=== PATIENT | male | born 1980 | race Caucasian/White ===

== ENCOUNTER 2017-01-23 10:45 | Observation (INO) | payer BC ==
[2017-01-23 12:14] LABS: Hematocrit 46 % (42-52); Hemoglobin 15.4 g/dl (14.0-18.0); Mean Corpuscular HGB Conc 34 g/dl (31-36); Mean Corpuscular Hemoglobin 31 pg (27-31); Mean Corpuscular Volume 90 fL (80-94); Mean Platelet Volume 7 um3 (7.4-10.4); Red Blood Count 5.04 10^6/ul (4.0-5.4); Red Cell Distribution Width 14 % (10.5-15); White Blood Count 8.3 10^3/ul (3.5-10.8)
[2017-01-23 12:26] LABS: ALT 20 U/L (7-52); AST 16 U/L (13-39); Albumin 4.2 g/dL (3.2-5.2); Alkaline Phosphatase 80 U/L (34-104); Anion Gap 6 mmol/L (2-11); BUN/Creatinine Ratio 15.5 (8-20); Blood Urea Nitrogen 15 mg/dL (6-24); CO2 Carbon Dioxide 30 mmol/L (22-32); Calcium 9.5 mg/dL (8.6-10.3); Chloride 98 mmol/L (101-111); EGFR African American 112.6 (>60); EGFR Non-African American 87.6 (>60); Glucose 103 mg/dL (70-100); Lipase < 10 U/L (11.0-82.0); Potassium 3.8 mmol/L (3.5-5.0); Sodium 134 mmol/L (133-145); Total Protein 7.2 g/dL (6.4-8.9)
[2017-01-23 12:27] LABS: Troponin I 0.01 ng/mL (<0.04)
[2017-01-23] MEDS ORDERED: Metoclopramide IV* 5 MG/ML 2 ML VIAL IV SLOW PU ONE (13:16)
[2017-01-23] MEDS ORDERED: NS 0.9% 1000 ML* 1,000 ML IV ONE (13:16)
[2017-01-23] MEDS ORDERED: Aspirin TAB* 325 MG PO ONE (13:16)
[2017-01-23 13:43] LABS: C Reactive Protein 56.61 mg/L (< 5.00)
[2017-01-23] MEDS ORDERED: Ondansetron INJ* 2 MG/ML VIAL IV PRN (13:45)
[2017-01-23] MEDS ORDERED: Omeprazole CAP* 20 MG PO ONE (13:52)
--- NOTE | 2017-01-23 14:33 | RAD ---
Indication: Chest pain. 2 views of the chest demonstrate no mediastinal shift. Heart is of normal size and configuration. Lung sheridan demonstrate no pleural fluid, pneumonia or pneumothorax. When compared to previous exam of March 26, 2016 no significant change is noted. IMPRESSION: No active cardiopulmonary disease is noted.
[2017-01-23 14:42] LABS: Erythrocyte Sed Rate 15 mm/Hr (0-14)
[2017-01-23] MEDS: NS 0.9% 1000 ML* 1,000 ML IV SCH (16:09)
[2017-01-23] MEDS: Indomethacin CAP* 50 MG PO SCH ×2 (17:11→20:20)
[2017-01-23] MEDS ORDERED: Acetaminophen TAB* 325 MG PO PRN (17:25)
--- NOTE | 2017-01-23 17:54 | ECHO ---
Patient: GILBERTO TAYLOR [facility] Rec#: [id number] : 1980 Date: 01/23/2017 Age: 36y Height: 165.1 cm / 65.0 in Weight: 74.8 kg / 164.9 lbs Sex: M BSA: 1.8 Room#: 439 Admit Date#: 01/23/2017 Type: Inpatient Referring: Curtis Cedillo Reading: Khari Shahid MD Dryer Feeder: Mary Marshall RN RDCS CC: Simone Isidro MD Transthoracic Echocardiogram Indication: Chest pain, abnormal EKG, pericarditis BP: 118/71 HR: 83 Rhythm: NSR Findings History: Former smoker Technical Comments: The study quality is fair. The study is technically limited due to the patient's smoking history. Completed at 1725. Left Ventricle: The left ventricular chamber size is normal. Global left ventricular wall motion and contractility are within normal limits. There is normal left ventricular systolic function. The estimated ejection fraction is 55-60%. closer to 55%. There is no consistent Doppler evidence of clinically significant diastolic dysfunction. Left Atrium: The left atrial chamber size is normal. Right Ventricle: The right ventricular cavity size is normal. The right ventricular global systolic function is low normal. Right Atrium: The right atrial cavity size is normal. Aortic Valve: The aortic valve is trileaflet. The aortic valve leaflets are mildly thickened. There is a trace of aortic regurgitation. There is no evidence of aortic stenosis. Mitral Valve: The mitral valve leaflets are mildly thickened. There is a trace of mitral regurgitation. There is no evidence of mitral stenosis. Tricuspid Valve: The tricuspid valve leaflets are normal. There is trace tricuspid regurgitation. Unable to estimate the right ventricular systolic pressure. Pulmonic Valve: The pulmonic valve appears normal. There is trace to mild pulmonic regurgitation. There is no pulmonic stenosis. Pericardium: There is no significant pericardial effusion. Aorta: There is no dilatation of the ascending aorta. There is no dilatation of the aortic arch. The aortic root is normal in size. Pulmonary Artery: The main pulmonary artery appears normal. Venous: The inferior vena cava appears normal in size. There is a greater than 50% respiratory change in the inferior vena cava dimension. Summary: There was not any prior study for comparison. Conclusions The study quality is fair. There is normal left ventricular systolic function. The estimated ejection fraction is 55-60%. closer to 55%. There is a trace of aortic regurgitation. There is a trace of mitral regurgitation. There is trace tricuspid regurgitation. There is no significant pericardial effusion. Measurements Name Value Normal Range RVDdMajor (2D) 3 cm (2.2 - 4.4) RAd ISD 4CH 4.1 cm (3.4 - 4.9) RA (A4C)W 3.1 cm (2.9 - 4.6) IVSd (2D) 0.9 cm (0.6 - 1) LVPWd (2D) 0.9 cm (0.6 - 1) LVIDd (2D) 4.1 cm (3.6 - 5.4) LVIDs (2D) 2.7 cm - LV FS (2D) 34 % (25 - 45) Aortic Annulus 2 cm (1.4 - 2.6) Ao root diameter (2D) 2.8 cm (2.1 - 3.5) Ascending Ao 2.4 cm (2.1 - 3.4) Aortic arch 2.1 cm (1.8 - 3.4) LA dimension (AP) 2D 2.8 cm (2.3 - 3.8) LAd ISD 4CH 4.5 cm (2.9 - 5.3) LA ISD 4CH W 3 cm (2.5 - 4.5) Name Value Normal Range LA ESV SP 4CH (A/L) 25 ml - LA ESV SP 2CH (A/L) 41 ml - LA ESV BP (A/L) 33 ml - LA ESV BP (A/L) index 18.1 ml/m2 - LA ESV SP 4CH (MOD) 23 ml - LA ESV SP 2CH (MOD) 40 ml - Name Value Normal Range MV E-wave Vmax 0.94 m/sec - MV deceleration time 238 msec - MV A-wave Vmax 0.54 m/sec - MV E:A ratio 1.8 ratio - LV septal e' Vmax 0.12 m/sec - LV lateral e' Vmax 0.15 m/sec - LV E:e' septal ratio 7.8 ratio - LV E:e' lateral ratio 6.3 ratio - Name Value Normal Range AV Vmax 1.3 m/sec - AV VTI 25.8 cm - AV peak gradient 7 mmHg - AV mean gradient 4 mmHg - LVOT Vmax 1 m/sec - LVOT VTI 17.7 cm - RUBI Vmax 1.3 m/sec - Name Value Normal Range IVC diameter 1.3 cm - Name Value Normal Range PV Vmax 0.84 m/sec -
--- NOTE | 2017-01-23 17:57 | HP ---
ADMISSION HISTORY AND PHYSICAL: DATE OF ADMISSION: 01/23/17 PRIMARY CARE PROVIDER: Simone Isidro MD. ADMITTING PROVIDER: GRAYSON Kc SUPERVISING PHYSICIAN: Hal Collier MD.* (DICTATED BY GRAYSON KC) CHIEF COMPLAINT: Chest pain, nausea, vomiting, and diarrhea. HISTORY OF PRESENT ILLNESS: This is a 36-year-old gentleman with mild intermittent asthma as well as irritable bowel syndrome who presented to the emergency department with a 2-day history of significant nausea, vomiting and diarrhea. His daughter had similar symptoms just a couple of days ago and her symptoms have since resolved. He is having multiple bowel movements daily. He denies any bloody stools or black or tarry appearing stools. He is vomiting a couple of times a day. He is able to tolerate some liquid intake, but nothing really solid in the last couple of days. Again, he denies hematemesis or coffee -ground emesis. The patient had an acute onset of chest pain that started this morning while at rest. He states that it was midsternal and radiated through to his back. He rated the pain as severe and was exacerbated with movements. He was unable to find a position that was comfortable. Pain was exacerbated with deep inspiration, but denied associated shortness of breath. The patient has no history of similar symptoms. PAST MEDICAL HISTORY: 1. Mild intermittent asthma. 2. Irritable bowel syndrome. 3. Rotator cuff tear, pending surgical repair. PAST SURGICAL HISTORY: 1. Appendectomy. 2. Rotator cuff repair. 3. Carpal tunnel release. HOME MEDICATIONS: 1. Albuterol inhaler as needed for shortness of breath. 2. Hydrocodone as needed for shoulder pain. SOCIAL HISTORY: The patient lives at home with his and 2 children. 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 He smokes 1 pack of cigarettes daily with approximately a [id number] smoking history. REVIEW OF SYSTEMS: As listed above in HPI. PHYSICAL EXAMINATION GENERAL: The patient is a mildly uncomfortable young male accompanied by his and [id number]. VITAL SIGNS: Initial vitals, temperature 99.8 degrees Fahrenheit, pulse of 101 beats per minute, respiratory rate 18 per minute, oxygen saturation 96% on room air and blood pressure of 118/71 mmHg. HEENT: Head is normocephalic, atraumatic. Mucous membranes are mildly dry. RESPIRATORY: Lungs are clear to auscultation without wheezes, crackles, or rhonchi. CARDIOVASCULAR: Rate is mildly tachycardic, but regular. No murmurs, rubs, or gallops. ABDOMEN: Bowel sounds are present. He has diffuse tenderness to palpation, but abdomen is soft. EXTREMITIES: No lower extremity edema appreciated. Limited. SKIN: Shows no concerning rashes or lesions. PSYCH: The patient is alert and appropriately oriented. LABORATORY DATA: CBC shows a white blood cell count of 8300, hemoglobin 15.4 g/ dL, and platelet count 247,000. Comprehensive metabolic panel is largely unremarkable. Sodium of 134 mmol/L, potassium 3.8, serum bicarb of 30, BUN of 15, creatinine of 0.97. Random glucose of 103 mg/dL. Lactic acid normal at 0.9. Total bilirubin mildly elevated at 1.3, AST and ALT normal at 16 and 20 respectively, normal alk phos at 80. Initial troponin negative at 0.01. CRP is moderately elevated at 56. Lipase is negative at less than 10. IMAGING: EKG shows a sinus rhythm without ischemic changes. Chest x-ray is pending. ASSESSMENT AND PLAN: 1. This is a 36-year-old gentleman with a history of mild intermittent asthma who presents with complaints of chest pain, nausea, vomiting, and diarrhea. He appears to have a viral gastroenteritis and likely pericarditis. He is being admitted as observation status. 2. Acute pericarditis - the patient has diffuse ST elevations appreciated on EKG associated with chest pain with a recent viral illness. We will initiate NSAID therapy with indomethacin. Unsure if he will be able to tolerate NSAIDs as he is still having nausea, vomiting, and diarrhea from his gastroenteritis. We will trial this orally and otherwise, we can give IV Solu-Medrol. Echocardiogram has been ordered. Initial troponin negative. Echocardiogram will evaluate for large pericardial effusion. No clinical signs of tamponade. 3. Viral gastroenteritis - initiate supportive care with IV fluids and antiemetics. We will also start a PPI along with his NSAIDs. 4. Mild intermittent asthma without evidence of acute exacerbation. 5. Code status. The patient is full code. 6. Healthcare proxy is the patient's . 7. DVT prophylaxis. The patient is low risk and placed sequential compression devices for prophylaxis. DISPOSITION: The patient is being admitted to observation status with continuous telemetry monitoring for acute pericarditis. I anticipate likely discharge tomorrow. GRAYSON KC CC: Simone Isidro MD * [id number]/[facility] #: [id number] MTDPedro Pablo
[2017-01-24] MEDS: NS 0.9% 1000 ML* 1,000 ML IV SCH ×2 (00:49→08:55)
[2017-01-24] MEDS ORDERED: Omeprazole CAP* 20 MG PO SCH (06:00)
[2017-01-24 06:59] LABS: Hematocrit 40 % (42-52); Hemoglobin 13.4 g/dl (14.0-18.0); Mean Corpuscular HGB Conc 34 g/dl (31-36); Mean Corpuscular Hemoglobin 31 pg (27-31); Mean Corpuscular Volume 91 fL (80-94); Mean Platelet Volume 8 um3 (7.4-10.4); Red Blood Count 4.34 10^6/ul (4.0-5.4); Red Cell Distribution Width 14 % (10.5-15); White Blood Count 5.1 10^3/ul (3.5-10.8)
[2017-01-24 07:10] LABS: BUN/Creatinine Ratio 22.1 (8-20); Calcium 8.3 mg/dL (8.6-10.3); EGFR Non-African American 114.3 (>60)
[2017-01-24] MEDS: Indomethacin CAP* 50 MG PO SCH (08:56)
--- NOTE | 2017-01-24 10:59 | DCNOTE ---
Subjective Date of Service: 01/24/17 Interval History: patient reports he "feels much better toda". Reports his nausea, has resolved. No vomiting since Saturday evening. Diarrhea is less frequent. No further CP since admission. Denies SOB. No fevers or chills. Patient would like to go home. Objective Active Medications: Acetaminophen (Tylenol Tab*) 650 mg PO Q6H PRN PRN Reason: pain/fever Last Admin: 01/23/17 20:22 Dose: 650 mg Indomethacin (Indocin Cap*) 50 mg PO TID [facility] Last Admin: 01/24/17 08:56 Dose: 50 mg Omeprazole (Prilosec Cap*) 20 mg PO 0600 [facility] Last Admin: 01/24/17 05:39 Dose: 20 mg Ondansetron HCl (Zofran Inj*) 4 mg IV Q4H PRN PRN Reason: NAUSEA/VOMITING Vital Signs 01/23/17 01/23/17 01/23/17 15:23 15:24 15:30 Temperature Pulse Rate 92 88 Respiratory 19 17 Rate Blood Pressure 118/66 117/65 (mmHg) O2 Sat by Pulse 96 94 Oximetry 01/23/17 01/23/17 01/23/17 16:07 19:59 20:00 Temperature 97.9 F 98.4 F Pulse Rate 96 70 70 Respiratory 20 20 Rate Blood Pressure 124/70 118/63 (mmHg) O2 Sat by Pulse 97 97 97 Oximetry 01/24/17 01/24/17 01/24/17 00:07 04:11 07:10 Temperature 97.6 F 97.6 F 97.5 F Pulse Rate 61 71 42 Respiratory 16 16 16 Rate Blood Pressure 108/61 103/58 109/62 (mmHg) O2 Sat by Pulse 98 98 100 Oximetry Oxygen Devices in Use Now: None Appearance: A+Ox3 sitting on the side of the bed in [facility]. Eyes: No Scleral Icterus, PERRLA Ears/Nose/Mouth/Throat: NL Teeth, Lips, Gums, Mucous Membranes Moist Neck: NL Appearance and Movements; NL JVP Respiratory: Symmetrical Chest Expansion and Respiratory Effort, Clear to Auscultation Cardiovascular: NL Sounds; No Murmurs; No JVD, RRR, No Edema Abdominal: NL Sounds; No Tenderness; No Distention Extremities: No Edema, No Clubbing, Cyanosis Neurological: Alert and Oriented x 3, NL Sensation, NL Gait, NL Muscle Strength and Tone Lines/Tubes/Other Access: Clean, Dry and Intact Peripheral IV Nutrition: Taking PO's Result Diagrams: 01/24/17 06:09 01/24/17 06:09 Assess/Plan/Problems-Billing Assessment: 36 yo male with hx of mild asthma who presents with chest pain found to have pericarditis and viral gastroenteritis - Patient Problems (1) Pericarditis Comment: - acute pericarditis with evidence by diffuse ST elevations typical for pericarditis. Two negative troponins. CP resolved. TTE showing no pericardial effusion. - Plan for NSAID therapy with colchicine. repeat CRP, ESR 1 week. (2) Viral gastroenteritis Comment: - resolving. Tolerating PO (3) IBS (irritable bowel syndrome) Comment: - diarrhea secondary to viral gastroenteritis. (4) Asthma Comment: asthma, controlled. (5) DVT prophylaxis Comment: ambulation Status and Disposition: OBV. Plan to DC home.
[2017-01-24 12:15] VITALS: BP 123/73
--- NOTE | 2017-01-24 23:43 | DS ---
DISCHARGE SUMMARY: DATE OF ADMISSION: 01/23/17 DATE OF DISCHARGE: 01/24/17 PROVIDER: Stephanie Zimmer NP ATTENDING PHYSICIAN: Hal Collier MD* (report dictated by Stephanie Zimmer NP). PRIMARY CARE PROVIDER: Simone Isidro MD PRIMARY DIAGNOSES: 1. Acute pericarditis. 2. Viral gastroenteritis. SECONDARY DIAGNOSES: 1. Asthma. 2. Irritable bowel syndrome. HISTORY OF PRESENT ILLNESS AND HOSPITAL COURSE: Please see history and physical by GRAYSON Michel for full admission details; but in summary, this is a 36-year- old male who presented to the emergency department with history of 2 days of significant nausea, vomiting and diarrhea and complained of acute onset of chest pain starting back morning while at rest. The patient reported he had midsternal chest pain radiating to his back, rating it severe and with movements and was unable to find a position that was comfortable. Pain was exacerbated with deep inspiration, but denied shortness of breath. No history of similar symptoms in the past. He came to the emergency department for further evaluation and was found to have an EKG with diffuse ST-elevation suggestive of acute pericarditis. He was admitted to the hospitalist service due to his accompanied viral gastroenteritis in anticipation that he may require IV medications. He was monitored on telemetry where he has had no arrhythmias noted. His 2 troponins were flat at 0.01 and 0.00. He was started on indomethacin on admission. He reports that his chest pain resolved in the emergency department, has not returned. Today the patient reports that he has not had any further vomiting since Saturday evening, and his diarrhea has decreased in frequency. This morning, his nausea has resolved and he is starting to take solid foods. The patient had no leukocytosis and no noted fevers throughout hospitalization. The patient reports that his daughter had similar symptoms several days prior to him developing the nausea, vomiting and diarrhea. The patient underwent a transthoracic echocardiogram, which showed no pericardial effusion and the report reads "the study quality is fair. There is normal left ventricular systolic function. The estimated ejection fraction is 55% to 60%, closer to 55%. There is a trace of aortic regurgitation. There is trace of mitral regurgitation. There is trace tricuspid regurgitation. There is no significant pericardial effusion." The patient is stable for discharge home. The patient's ESR was 15 and CRP was 56.61 on admission. The patient is stable for discharge home. He will be sent on NSAID therapy with rechecking his CRP and ESR next week as well as will be sent home on colchicine. The patient was instructed that he should take the colchicine for 3 months to prevent recurrence of pericarditis, and once his CRP and ESR are normalized, he can stop the NSAID therapy. The patient reports that he is supposed to have shoulder surgery in 2 weeks and I instructed the patient to talk to his orthopedic surgeon. I side consulted our vacuum drum drier operator to states he normally recommends patients to have to rest and have low activity for 2 weeks and surgery would be considered a high stress activity. The patient was encouraged to discuss this with his orthopedic surgeon, Dr. Quijano, further. DISCHARGE MEDICATIONS: 1. Hydrocodone/acetaminophen 5/325 mg 1 to 2 tabs p.o. q.6 hours p.r.n. for shoulder pain. 2. Ibuprofen 600 mg p.o. q.8 hours until inflammatory markers CRP/ESR have normalized. 3. Colchicine 0.6 mg p.o. b.i.d. for a total of 3 months to prevent recurrence of pericarditis. DISCHARGE PLAN: 1. The patient is stable for discharge to home. He was instructed to return to the emergency department with any concerning or worsening symptoms. 2. Followup CRP and ESR next 01/29/17, with results sent to his primary care provider. 3. Advance diet as tolerated. 4. Encouraged lot of fluids in the setting of acute gastroenteritis. 5. Stable for discharge to home. TIME SPENT: Approximately 60 minutes were spent on this discharge. STEPHANIE ZIMMER NP CC: Simone Isidro MD* [id number]/[facility] #: [id number] RADHA
--- NOTE | 2017-01-26 15:34 | ED ---
Calvin Larios Adam, scribed for Madhu Vergara MD on 01/23/17 at 1210 . GI/ HPI - HPI Summary HPI Summary: Pt is a 36 year old male presenting with N/V/D and chest pain. He states that yesterday he began vomiting and today he has been having diarrhea. This morning after he woke up he states that "everything seemed weird as if (he) were drunk. " After he sat down, he developed a burning sensation in his chest/epigastrium which was aggravated by movement, bending over, and deep breaths. He took Tums and the pain is now down to a 4/10 (lower than it was earlier). He currently has a migraine. He states that he has had 2 migraines in the past 2 weeks. Pt states that his temperature was 99.9 F at his house. He denies any other PMHx. FMHx of cardiac stents (uncle). - History of Current Complaint Chief Complaint: EDAbdPain Time Seen by Provider: 01/23/17 11:50 Stated Complaint: VOMITING / DIARRHEA Hx Obtained From: Patient Onset/Duration: Started Hours Ago, Atraumatic, Still Present Timing: Constant Severity: Moderate Current Severity: Moderate Pain Intensity: 4 Location of Pain: Epigastric Pain Characteristics: Burning Pain Radiates to: Chest, Back Associated Signs and Symptoms: Positive: Nausea, Vomiting, Diarrhea, Chest Pain , Other: - Headache Aggravating Factor(s): Movement, Deep Breaths Alleviating Factor(s): Medication - Tums - Allergy/Home Medications Allergies/Adverse Reactions: Allergies Allergy/AdvReac Type Severity Reaction Status Date / Time ENVIRONMENTAL Allergy Severe CONGESTION, Uncoded 05/30/16 16:36 COUGH Home Medications: Home Medications HYDROcodone/ACETAMIN 5-325 MG* [[place] 5-325 TAB*] 1 - 2 tab PO Q6H PRN 01/23/17 [History Confirmed 01/23/17] PMH/Surg Hx/FS Hx/Imm Hx Endocrine/Hematology History: Denies: Hx Anticoagulant Therapy, Hx Diabetes, Hx Thyroid Disease Cardiovascular History: Reports: Hx Angina Denies: Hx Congestive Heart Failure, Hx Coronary Artery Disease, Hx Deep Vein Thrombosis, Hx Hypercholesterolemia - patient says he does not know, Hx Hypertension, Hx Myocardial Infarction, Hx Pacemaker/ICD, Hx Peripheral Vascular Disease, Hx Valvular Heart Disease Respiratory History: Reports: Hx Asthma - as a child, rarely as an adult Denies: Hx Chronic Obstructive Pulmonary Disease (COPD), Hx Lung Cancer GI History: Denies: Hx Gall Bladder Disease, Hx Gastrointestinal Bleed, Hx Ulcer, Hx Urosepsis History: Denies: Hx Kidney Stones, Hx Renal Disease Neurological History: Denies: Hx Dementia, Hx Headaches, Hx Migraine, Hx Seizures, Hx Transient Ischemic Attacks (TIA) Psychiatric History: Denies: Hx Anxiety, Hx Depression, Hx Schizophrenia, Hx Bipolar Disorder - Surgical History Surgery Procedure, Year, and Place: appendectomy. 1997 LEFT shoulder surgery - [facility]. Sep 17 RIGHT shoulder sugery - [facility]. CARPAL TUNNEL RELEASE, double. ORAL SURGERY 03/08/2016 with ANESTHESIA Infectious Disease History: No Infectious Disease History: Denies: Hx Clostridium Difficile, Hx Hepatitis, Hx Human Immunodeficiency Virus (HIV), Hx of Known/Suspected MRSA, Hx Shingles, Hx Tuberculosis, Hx Known/ Suspected VRE, Hx Known/Suspected VRSA, History Other Infectious Disease, Traveled Outside the [place] in Last 30 Days - Family History Known Family History: Positive: Cardiac Disease - UNCLE-STENTS, AUNT/UNCLE- MITRAL VALVE PROLAPSE, BROTHER-PORPHYRIA - Social History Occupation: Employed Full-time Lives: With Family - Alcohol Use: Rare Hx Substance Use: No Substance Use Type: Reports: None Hx Tobacco Use: Yes - ADVISED TO STOP, USING PATCH NOW Smoking Status (MU): Former Smoker Type: Cigarettes Amount Used/How Often: 1/2 PPD Length of Time of Smoking/Using Tobacco: 20 years Have You Smoked in the Last Year: Yes Review of Systems Negative: Fever, Chills Negative: Erythema Negative: Sore Throat Positive: Chest Pain Negative: Shortness Of Breath, Cough Positive: Abdominal Pain - Epigastric, Vomiting, Diarrhea, Nausea Negative: dysuria Negative: Myalgia, Edema Negative: Rash All Other Systems Reviewed And Are Negative: Yes Physical Exam - Summary Physical Exam Summary: Constitutional: Well-developed, Well-nourished, Alert. (-) Distressed Skin: Warm, Dry HENT: Normocephalic; Atraumatic Eyes: Conjunctiva normal Neck: Musculoskeletal ROM normal neck. (-) JVD, (-) Stridor, (-) Tracheal deviation Cardio: Rhythm regular, rate normal, Heart sounds normal; Intact distal pulses; The pedal pulses are 2+ and symmetric. Radial pulses are 2+ and symmetric. (-) Murmur Pulmonary/Chest wall: Effort normal. (-) Respiratory distress, (-) Wheezes, (-) Rales Abd: Soft, (-) Tenderness, (-) Distension, (-) Guarding, (-) Rebound Musculoskeletal: (-) Edema Lymph: (-) Cervical adenopathy Neuro: Alert, Oriented x3 Psych: Mood and affect Normal Triage Information Reviewed: Yes Vital Signs On Initial Exam: Initial Vitals Temp Pulse Resp BP Pulse Ox 99.8 F 101 18 118/71 96 01/23/17 10:51 01/23/17 10:51 01/23/17 10:51 01/23/17 10:51 01/23/17 10:51 Vital Signs Reviewed: Yes Diagnostics - Vital Signs Vital Signs Temp Pulse Resp BP Pulse Ox 01/23/17 10:51 99.8 F 101 18 118/71 96 - Laboratory Result Diagrams: 01/23/17 11:21 01/23/17 11:21 Lab Statement: Any lab studies that have been ordered have been reviewed, and results considered in the medical decision making process. - EKG 11:14 Cardiac Rate: Tachycardia - 100 BPM EKG Interpretation: Diffuse ST elevations. No reciprocal changes. No STEMI. - Additional Comments Diagnostic Additional Comments: Troponin I - 0.01 GIGU Course/Dx - Course Course Of Treatment: 13:40 - Patient will be admitted. - Diagnoses Provider Diagnoses: Chest pain, Pericarditis, Gastroenteritis Discharge - Discharge Plan Condition: Stable Disposition: ADMITTED TO [facility] documentation as recorded by the Calvin sandoval Adam accurately reflects the service I personally performed and the decisions made by me, Madhu Vergara MD.
== END 2017-01-24 14:04 | disposition home or self-care (01) ==
LOC: ED 10:45 → MEDTELE 13:21
PROVIDERS: ADMIT Hospitalist; ATTEND Internal Medicine
DX: I30.9 Acute pericarditis, unspecified (principal); A08.4 Viral intestinal infection, unspecified; J45.909 Unspecified asthma, uncomplicated; K58.9 Irritable bowel syndrome, unspecified; R07.9 Chest pain, unspecified; F17.210 Nicotine dependence, cigarettes, uncomplicated; R94.31 Abnormal electrocardiogram [ECG] [EKG]; R00.0 Tachycardia, unspecified
CPT/HCPCS: 36415; 71020; 80048; 80053; 83605; 83690; 84484; 85025; 85652; 86140; 93005; 93306; 96361; 96374; 99283; A9270-GY; G0378

== ENCOUNTER 2017-03-08 19:16 | Emergency (ER) | payer BC ==
[2017-03-08] MEDS ORDERED: Aspirin Low Dose CHEW TAB* 81 MG PO ONE (19:51)
[2017-03-08 20:09] LABS: Hematocrit 44 % (42-52); Hemoglobin 14.5 g/dl (14.0-18.0); Mean Corpuscular HGB Conc 33 g/dl (31-36); Mean Corpuscular Hemoglobin 31 pg (27-31); Mean Corpuscular Volume 92 fL (80-94); Mean Platelet Volume 7 um3 (7.4-10.4); Red Blood Count 4.76 10^6/ul (4.0-5.4); Red Cell Distribution Width 13 % (10.5-15); White Blood Count 10.6 10^3/ul (3.5-10.8)
--- NOTE | 2017-03-08 20:21 | RAD ---
HISTORY: Chest pain COMPARISONS: January 23, 2017 VIEWS:1: Single frontal portable view of the chest at 8:01 PM FINDINGS: LINES AND TUBES: None. CARDIOMEDIASTINAL SILHOUETTE: The cardiomediastinal silhouette is normal for portable technique. PLEURA: The costophrenic angles are sharp. No pleural abnormalities are noted. LUNG PARENCHYMA: The lungs are clear. ABDOMEN: The upper abdomen is clear. There is no subphrenic gas. BONES AND SOFT TISSUES: No bone or soft tissue abnormalities are noted. IMPRESSION: NO ACTIVE CARDIOPULMONARY DISEASE.
[2017-03-08 20:26] LABS: Albumin 4.4 g/dL (3.2-5.2); BUN/Creatinine Ratio 25.3 (8-20); Calcium 9.3 mg/dL (8.6-10.3); EGFR African American 141.9 (>60); EGFR Non-African American 110.4 (>60); Globulin 2.8 g/dL (2-4); Magnesium 2.1 mg/dL (1.9-2.7); Potassium 3.9 mmol/L (3.5-5.0); Total Bilirubin 0.5 mg/dL (0.2-1.0); Total Protein 7.2 g/dL (6.4-8.9)
[2017-03-08] MEDS ORDERED: Ibuprofen TAB* 600 MG PO ONE (20:53)
--- NOTE | 2017-03-08 20:59 | ED ---
Tez Larios Rebecca, scribed for YarieljanetShyam on 03/08/17 at 1954 . HPI Chest Pain - HPI Summary HPI Summary: Pt is a 37 y/o M BIBA who presents to ED c/o CP. Pain began suddenly at 1815 while laying down and has been constant since onset. Pain is located in the L anterior chest without radiation. Characterized as moderate sharp pain, currently ranked 6/10. Sx aggravated by deep breaths and movement, alleviated by bending over. Additionally c/o productive cough, mild diaphoresis and palpitations characterized as fast. Denies nausea, SOB, fever. Recent Dx of pericarditis (1.5 months ago) and has been off medications since 02/28/2017. Reports recent echocardiogram. Last stress test was April (11 months ago) which was within normal limits. SHx former smoker. FHx HTN, CAD, DM. - History of Current Complaint Chief Complaint: EDChestPainROMI Time Seen by Provider: 03/08/17 19:39 Hx Obtained From: Patient Onset/Duration: Started Hours Ago, Still Present Time of Onset: 18:15 Timing: Constant Initial Severity: Moderate Current Severity: Moderate Pain Intensity: 6 Pain Scale Used: 0-10 Numeric Chest Pain Location: Left Anterior Chest Pain Radiates: No Character: Sharp/Stabbing Aggravating Factor(s): Movement, Deep Breaths Alleviating Factor(s): Position - Bending over Associated Signs and Symptoms: Positive: Diaphoresis - mild, Palpitations - fast , Productive Cough. Negative: Shortness of Breath, Fever, Nausea - Additional Pertinent History Primary Care Physician: [id number] - Allergy/Home Medications Allergies/Adverse Reactions: Allergies Allergy/AdvReac Type Severity Reaction Status Date / Time ENVIRONMENTAL Allergy Severe CONGESTION, Uncoded 03/08/17 20:08 COUGH PMH/Surg Hx/FS Hx/Imm Hx Endocrine/Hematology History: Denies: Hx Anticoagulant Therapy, Hx Diabetes, Hx Thyroid Disease Cardiovascular History: Reports: Hx Angina, Other Cardiovascular Problems/ Disorders - Hx Pericarditis Denies: Hx Congestive Heart Failure, Hx Coronary Artery Disease, Hx Deep Vein Thrombosis, Hx Hypercholesterolemia - patient says he does not know, Hx Hypertension, Hx Myocardial Infarction, Hx Pacemaker/ICD, Hx Peripheral Vascular Disease, Hx Valvular Heart Disease Respiratory History: Reports: Hx Asthma - as a child, rarely as an adult Denies: Hx Chronic Obstructive Pulmonary Disease (COPD), Hx Lung Cancer GI History: Denies: Hx Gall Bladder Disease, Hx Gastrointestinal Bleed, Hx Ulcer, Hx Urosepsis History: Denies: Hx Kidney Stones, Hx Renal Disease Sensory History: Denies: Hx Contacts or Glasses, Hx Hearing Aid Opthamlomology History: Denies: Hx Contacts or Glasses Neurological History: Denies: Hx Dementia, Hx Headaches, Hx Migraine, Hx Seizures, Hx Transient Ischemic Attacks (TIA) Psychiatric History: Denies: Hx Anxiety, Hx Depression, Hx Schizophrenia, Hx Bipolar Disorder - Surgical History Surgery Procedure, Year, and Place: appendectomy. 1997 LEFT shoulder surgery - TORN ROTATOR CUFF. Sep 17 RIGHT shoulder sugery - TORN ROTATOR CUFF. CARPAL TUNNEL RELEASE, double. ORAL SURGERY 03/08/2016 with ANESTHESIA Infectious Disease History: Denies: Hx Clostridium Difficile, Hx Hepatitis, Hx Human Immunodeficiency Virus (HIV), Hx of Known/Suspected MRSA, Hx Shingles, Hx Tuberculosis, Hx Known/ Suspected VRE, Hx Known/Suspected VRSA, History Other Infectious Disease, Traveled Outside the [place] in Last 30 Days - Family History Known Family History: Positive: Cardiac Disease - UNCLE-STENTS, AUNT/UNCLE- MITRAL VALVE PROLAPSE, BROTHER-PORPHYRIA, Hypertension, Diabetes - Social History Alcohol Use: Rare Hx Substance Use: No Substance Use Type: Reports: None Hx Tobacco Use: Yes - ADVISED TO STOP, USING PATCH NOW Smoking Status (MU): Former Smoker Type: Cigarettes Amount Used/How Often: 1/2 PPD Length of Time of Smoking/Using Tobacco: 20 years Have You Smoked in the Last Year: Yes Review of Systems Positive: Skin Diaphoresis - mild. Negative: Fever Positive: Palpitations - fast, Chest Pain - moderate, sharp left anterior Positive: Cough - productive. Negative: Shortness Of Breath Negative: Nausea All Other Systems Reviewed And Are Negative: Yes Physical Exam Triage Information Reviewed: Yes Vital Signs On Initial Exam: Initial Vitals Temp Pulse Resp BP Pulse Ox 98.5 F 89 16 130/79 97 03/08/17 19:30 03/08/17 19:30 03/08/17 19:30 03/08/17 19:30 03/08/17 19:30 Vital Signs Reviewed: Yes Appearance: Positive: Well-Appearing, No Pain Distress Skin: Positive: Warm, Skin Color Reflects Adequate Perfusion, Dry Head/Face: Positive: Normal Head/Face Inspection Eyes: Positive: EOMI, CORINE Neck: Positive: Supple, Nontender Respiratory/Lung Sounds: Positive: Clear to Auscultation, Breath Sounds Present Cardiovascular: Positive: RRR, Pulses are Symmetrical in both Upper and Lower Extremities Musculoskeletal: Positive: Pain @ - Tenderness over the L chest Neurological: Positive: Normal, Sensory/Motor Intact, Alert, Oriented to Person Place, Time Diagnostics - Vital Signs Vital Signs Temp Pulse Resp BP Pulse Ox 03/08/17 19:44 90 97 03/08/17 19:42 130/79 03/08/17 19:30 98.5 F 89 16 130/79 97 - Laboratory Lab Results: Lab Results 03/08/17 03/08/17 03/08/17 Range/Units 19:50 19:50 19:50 WBC 10.6 (3.5-10.8) 10^3/ul RBC 4.76 (4.0-5.4) 10^6/ul Hgb 14.5 (14.0-18.0) g/dl Hct 44 (42-52) % MCV 92 (80-94) fL MCH 31 (27-31) pg MCHC 33 (31-36) g/dl RDW 13 (10.5-15) % Plt Count 267 (150-450) 10^3/ul MPV 7 L (7.4-10.4) um3 Neut % (Auto) 59.9 (38-83) % Lymph % (Auto) 28.8 (25-47) % [place] % (Auto) 8.1 (1-9) % Eos % (Auto) 2.1 (0-6) % Baso % (Auto) 1.1 (0-2) % Absolute Neuts (auto) 6.4 (1.5-7.7) 10^3/ul Absolute Lymphs (auto) 3.1 (1.0-4.8) 10^3/ul Absolute Monos (auto) 0.9 H (0-0.8) 10^3/ul Absolute Eos (auto) 0.2 (0-0.6) 10^3/ul Absolute Basos (auto) 0.1 (0-0.2) 10^3/ul Absolute Nucleated RBC 0.01 10^3/ul Nucleated RBC % 0 INR (Anticoag Therapy) 0.80 L (0.89-1.11) APTT 27.4 (26.0-36.3) seconds D-Dimer, Quantitative < 200 (Less Than 230) ng/mL Sodium 135 (133-145) mmol/L Potassium 3.9 (3.5-5.0) mmol/L Chloride 102 (101-111) mmol/L Carbon Dioxide 26 (22-32) mmol/L Anion Gap 7 (2-11) mmol/L BUN 20 (6-24) mg/dL Creatinine 0.79 (0.67-1.17) mg/dL Est GFR ( Amer) 141.9 (>60) Est GFR (Non-Af Amer) 110.4 (>60) BUN/Creatinine Ratio 25.3 H (8-20) Glucose 78 (70-100) mg/dL Calcium 9.3 (8.6-10.3) mg/dL Magnesium 2.1 (1.9-2.7) mg/dL Total Bilirubin 0.50 (0.2-1.0) mg/dL AST 20 (13-39) U/L ALT 24 (7-52) U/L Alkaline Phosphatase 82 (34-104) U/L Total Creatine Kinase 111 (10-223) U/L CK-MB (CK-2) 2.9 (0.6-6.3) ng/mL Troponin I 0.00 (<0.04) ng/mL B-Natriuretic Peptide ( - 100) pg/mL Total Protein 7.2 (6.4-8.9) g/dL Albumin 4.4 (3.2-5.2) g/dL Globulin 2.8 (2-4) g/dL Albumin/Globulin Ratio 1.6 (1-3) /03/20 Range/Units 19:50 WBC (3.5-10.8) 10^3/ul RBC (4.0-5.4) 10^6/ul Hgb (14.0-18.0) g/dl Hct (42-52) % MCV (80-94) fL MCH (27-31) pg MCHC (31-36) g/dl RDW (10.5-15) % Plt Count (150-450) 10^3/ul MPV (7.4-10.4) um3 Neut % (Auto) (38-83) % Lymph % (Auto) (25-47) % [place] % (Auto) (1-9) % Eos % (Auto) (0-6) % Baso % (Auto) (0-2) % Absolute Neuts (auto) (1.5-7.7) 10^3/ul Absolute Lymphs (auto) (1.0-4.8) 10^3/ul Absolute Monos (auto) (0-0.8) 10^3/ul Absolute Eos (auto) (0-0.6) 10^3/ul Absolute Basos (auto) (0-0.2) 10^3/ul Absolute Nucleated RBC 10^3/ul Nucleated RBC % INR (Anticoag Therapy) (0.89-1.11) APTT (26.0-36.3) seconds D-Dimer, Quantitative (Less Than 230) ng/mL Sodium (133-145) mmol/L Potassium (3.5-5.0) mmol/L Chloride (101-111) mmol/L Carbon Dioxide (22-32) mmol/L Anion Gap (2-11) mmol/L BUN (6-24) mg/dL Creatinine (0.67-1.17) mg/dL Est GFR ( Amer) (>60) Est GFR (Non-Af Amer) (>60) BUN/Creatinine Ratio (8-20) Glucose (70-100) mg/dL Calcium (8.6-10.3) mg/dL Magnesium (1.9-2.7) mg/dL Total Bilirubin (0.2-1.0) mg/dL AST (13-39) U/L ALT (7-52) U/L Alkaline Phosphatase (34-104) U/L Total Creatine Kinase (10-223) U/L CK-MB (CK-2) (0.6-6.3) ng/mL Troponin I (<0.04) ng/mL B-Natriuretic Peptide 17 ( - 100) pg/mL Total Protein (6.4-8.9) g/dL Albumin (3.2-5.2) g/dL Globulin (2-4) g/dL Albumin/Globulin Ratio (1-3) Result Diagrams: 03/08/17 19:50 03/08/17 19:50 Lab Statement: Any lab studies that have been ordered have been reviewed, and results considered in the medical decision making process. - Radiology CXR Xray Interpretation: No Acute Changes - NO ACTIVE CARDIOPULMONARY DISEASE. Radiology Interpretation Completed By: Radiologist - EKG 1949 Cardiac Rate: NL - 85 bpm EKG Rhythm: Sinus Rhythm - normal EKG Comparison: No Significant Change - from EKG on 01/24/2017; old changes present that were present on previous EKGs, no new changes Re-Evaluation - Re-Evaluation First Eval Re-Evaluation Time: 20:54 Change: Improved Comment: Pt is feeling significantly better. Discussed D/C plan with pt and family, who agree and understand. Chest Pain Course/Dx - Course Assessment/Plan: MDM: Pt came in with chest pain. Respiratory labs, EKG, CXR are done. No acute findings. Most probably, pt has chest wall pain. Will D/C to home on Motrin to follow up with PCP in 3 days. - Chest Pain Differential Diagnosis/HQI/PQRI: Angina, Chest Wall, Lower Respiratory Infection , Pulmonary Embolism - Diagnoses Provider Diagnoses: Musculoskeletal chest pain Discharge - Discharge Plan Condition: Stable Disposition: HOME Prescriptions: Ibuprofen TAB* [Motrin TAB* 600 MG] 600 mg PO Q8H PRN #20 tab PRN Reason: Pain Patient Education Materials: Musculoskeletal Pain (ED) Referrals: Simone Isidro MD [Primary Care Provider] - 3 Days The documentation as recorded by the Tez sandoval Rebecca accurately reflects the service I personally performed and the decisions made by , Shyam Rivers.
[2017-03-08 21:38] VITALS: BP 121/67
== END 2017-03-08 21:39 | disposition home or self-care (01) ==
LOC: ED 19:16
DX: R07.89 Other chest pain (principal); R05 Cough; R61 Generalized hyperhidrosis; R00.2 Palpitations; J45.909 Unspecified asthma, uncomplicated; Z87.891 Personal history of nicotine dependence
CPT/HCPCS: 36415; 71010; 80053; 82550; 82553; 83735; 83880; 84484; 85025; 85379; 85610; 85730; 93005; 99283; A9270-GY

== ENCOUNTER 2017-03-25 23:48 | Emergency (ER) | payer BC ==
--- NOTE | 2017-03-26 00:31 | ED ---
I, Oh,Sooharleen, scribed for Odilon Rosa MD on 03/26/17 at 0023 . HPI Chest Pain - HPI Summary HPI Summary: This 37 y/o male presents to ED for acute on chronic CP since this evening. Positive phlegm production since 2 days ago, lightheaded dizziness, and increased fatigue since this morning. Pt lied down on bed tonight, and suddenly "felt worse", and decided to visit ED tonight. PMHx includes pericarditis that is currently being f/u and treated. Primary care involves Dr. Padilla at [facility]. - History of Current Complaint Chief Complaint: EDChestPainROMI Time Seen by Provider: 03/26/17 00:15 Hx Obtained From: Patient Onset/Duration: Started Hours Ago, Atraumatic, Still Present Timing: Constant Pain Intensity: 5 Pain Scale Used: 0-10 Numeric Chest Pain Location: Diffuse Character: Tightness Aggravating Factor(s): Nothing Alleviating Factor(s): Nothing Associated Signs and Symptoms: Positive: Chest Pain, Dizziness, Lightheadedness , Productive Cough - Additional Pertinent History Primary Care Physician: [id number] - Allergy/Home Medications Allergies/Adverse Reactions: Allergies Allergy/AdvReac Type Severity Reaction Status Date / Time ENVIRONMENTAL Allergy Severe CONGESTION, Uncoded 03/26/17 00:05 COUGH PMH/Surg Hx/FS Hx/Imm Hx Endocrine/Hematology History: Denies: Hx Anticoagulant Therapy, Hx Diabetes, Hx Thyroid Disease Cardiovascular History: Reports: Hx Angina, Other Cardiovascular Problems/ Disorders - Hx Pericarditis Denies: Hx Congestive Heart Failure, Hx Coronary Artery Disease, Hx Deep Vein Thrombosis, Hx Hypercholesterolemia - patient says he does not know, Hx Hypertension, Hx Myocardial Infarction, Hx Pacemaker/ICD, Hx Peripheral Vascular Disease, Hx Valvular Heart Disease Respiratory History: Reports: Hx Asthma - as a child, rarely as an adult, Other Respiratory Problems/Disorders - PNA Denies: Hx Chronic Obstructive Pulmonary Disease (COPD), Hx Lung Cancer GI History: Denies: Hx Gall Bladder Disease, Hx Gastrointestinal Bleed, Hx Ulcer, Hx Urosepsis History: Denies: Hx Kidney Stones, Hx Renal Disease Sensory History: Denies: Hx Contacts or Glasses, Hx Hearing Aid Opthamlomology History: Denies: Hx Contacts or Glasses Neurological History: Denies: Hx Dementia, Hx Headaches, Hx Migraine, Hx Seizures, Hx Transient Ischemic Attacks (TIA) Psychiatric History: Denies: Hx Anxiety, Hx Depression, Hx Schizophrenia, Hx Bipolar Disorder - Surgical History Surgery Procedure, Year, and Place: appendectomy. 1997 LEFT shoulder surgery - TORN ROTATOR CUFF. Sep 17 RIGHT shoulder sugery - TORN ROTATOR CUFF. CARPAL TUNNEL RELEASE, double. ORAL SURGERY 03/08/2016 with ANESTHESIA Infectious Disease History: No Infectious Disease History: Denies: Hx Clostridium Difficile, Hx Hepatitis, Hx Human Immunodeficiency Virus (HIV), Hx of Known/Suspected MRSA, Hx Shingles, Hx Tuberculosis, Hx Known/ Suspected VRE, Hx Known/Suspected VRSA, History Other Infectious Disease, Traveled Outside the [place] in Last 30 Days - Family History Known Family History: Positive: Cardiac Disease - UNCLE-STENTS, AUNT/UNCLE- MITRAL VALVE PROLAPSE, BROTHER-PORPHYRIA, Hypertension, Diabetes - Social History Alcohol Use: Rare Hx Substance Use: No Substance Use Type: Reports: None Hx Tobacco Use: Yes - ADVISED TO STOP, USING PATCH NOW Smoking Status (MU): Former Smoker Type: Cigarettes Amount Used/How Often: 1/2 PPD Length of Time of Smoking/Using Tobacco: 20 years Have You Smoked in the Last Year: Yes Review of Systems Positive: Fatigue. Negative: Fever Positive: Chest Pain - chest tightness Positive: Cough Neurological: Other - Positive for lightheaded dizziness All Other Systems Reviewed And Are Negative: Yes Physical Exam Triage Information Reviewed: Yes Vital Signs On Initial Exam: Initial Vitals Temp Pulse Resp BP Pulse Ox 98.8 F 93 18 136/91 96 03/26/17 00:03 03/26/17 00:03 03/26/17 00:03 03/26/17 00:03 03/26/17 00:03 Vital Signs Reviewed: Yes Appearance: Positive: Well-Appearing, No Pain Distress Skin: Positive: Warm Head/Face: Positive: Normal Head/Face Inspection Eyes: Positive: CORINE ENT: Positive: Hearing grossly normal Neck: Positive: Supple Respiratory/Lung Sounds: Positive: Clear to Auscultation, Breath Sounds Present Cardiovascular: Positive: RRR Abdomen Description: Positive: Nontender, Soft Bowel Sounds: Positive: Present Musculoskeletal: Positive: Strength/ROM Intact Neurological: Positive: Sensory/Motor Intact, Alert, Oriented to Person Place, Time Psychiatric: Positive: Affect/Mood Appropriate Diagnostics - Vital Signs Vital Signs Temp Pulse Resp BP Pulse Ox 03/26/17 00:03 98.8 F 93 18 136/91 96 - Laboratory Result Diagrams: 03/26/17 00:24 03/26/17 00:24 Lab Statement: Any lab studies that have been ordered have been reviewed, and results considered in the medical decision making process. - Radiology CXR Radiology Interpretation Completed By: ED Physician - See EMR for official reading - EKG 0050 Cardiac Rate: NL - 81 bpm EKG Rhythm: Sinus Rhythm Chest Pain Course/Dx - Diagnoses Provider Diagnoses: Chest pain Discharge - Discharge Plan Condition: Stable Disposition: HOME Patient Education Materials: Chest Pain (ED) Referrals: Non Staff,Doctor [Primary Care Provider] - 2 Days Additional Instructions: Please continue your treatment for pericarditis as instructed by Dr. Padilla. The documentation as recorded by the Conrad sandoval Soohyun accurately reflects the service I personally performed and the decisions made by me, Odilon Rosa MD.
[2017-03-26 00:43] LABS: Hematocrit 44 % (42-52); Hemoglobin 14.9 g/dl (14.0-18.0); Mean Corpuscular HGB Conc 34 g/dl (31-36); Mean Corpuscular Hemoglobin 31 pg (27-31); Mean Corpuscular Volume 92 fL (80-94); Mean Platelet Volume 7 um3 (7.4-10.4); Red Cell Distribution Width 14 % (10.5-15); White Blood Count 16.1 10^3/ul (3.5-10.8)
[2017-03-26 00:54] LABS: Albumin 4.3 g/dL (3.2-5.2); BUN/Creatinine Ratio 20.2 (8-20); Calcium 9.6 mg/dL (8.6-10.3); EGFR African American 132.2 (>60); EGFR Non-African American 102.8 (>60); Globulin 2.8 g/dL (2-4); Potassium 4.1 mmol/L (3.5-5.0); Total Bilirubin 0.4 mg/dL (0.2-1.0); Total Protein 7.1 g/dL (6.4-8.9)
[2017-03-26 02:10] VITALS: BP 133/82
--- NOTE | 2017-03-26 07:34 | RAD ---
INDICATION: Chest pain COMPARISON: Chest x-ray March 08, 2017 TECHNIQUE: PA and lateral dual-energy views were obtained. FINDINGS: Bones/Soft Tissues: There are no acute bony findings. Cardiomediastinal: The cardiomediastinal silhouette is normal. Lungs: There are no infiltrates. Pleura: There are no pleural effusions. Other: None IMPRESSION: NO ACTIVE DISEASE.
== END 2017-03-26 02:12 | disposition home or self-care (01) ==
LOC: ED 23:48
DX: R07.9 Chest pain, unspecified (principal); R42 Dizziness and giddiness; R05 Cough; Z87.891 Personal history of nicotine dependence; R53.83 Other fatigue
CPT/HCPCS: 36415; 71020; 80053; 84484; 85025; 93005; 99282

== ENCOUNTER 2017-04-21 03:15 | Emergency (ER) | payer BC ==
[2017-04-21] MEDS ORDERED: NS 0.9% 1000 ML* 1,000 ML IV ONE (03:48)
[2017-04-21 04:12] LABS: Hematocrit 42 % (42-52); Mean Corpuscular HGB Conc 34 g/dl (31-36); Mean Corpuscular Hemoglobin 31 pg (27-31); Mean Corpuscular Volume 92 fL (80-94); Mean Platelet Volume 7 um3 (7.4-10.4); Red Blood Count 4.57 10^6/ul (4.0-5.4); Red Cell Distribution Width 13 % (10.5-15); White Blood Count 12.6 10^3/ul (3.5-10.8)
[2017-04-21 04:32] LABS: Albumin 4.1 g/dL (3.2-5.2); BUN/Creatinine Ratio 21.7 (8-20); EGFR African American 134.1 (>60); EGFR Non-African American 104.3 (>60); Globulin 2.7 g/dL (2-4); Magnesium 1.9 mg/dL (1.9-2.7); Potassium 3.5 mmol/L (3.5-5.0); Total Bilirubin 0.4 mg/dL (0.2-1.0); Total Protein 6.8 g/dL (6.4-8.9)
--- NOTE | 2017-04-21 05:31 | ED ---
Laron Larios Aidan, scribed for Buffy Stewart MD on 04/21/17 at 0438 . Headache - HPI Summary HPI Summary: 37 y/o male presents to the ED with a complaint of an acute, moderate episode of diaphoresis with a [id number] PALACIOS and associated dry oral mucosa. Just prior to the event, the patient had a dream of either having an DC or CVA. The episode woke him up from sleep. He believes that he threw himself into a panic attack. Though he currently no longer feels panic, his dry mouth and PALACIOS have persisted. Pt denies any diarrhea or CP. Yesterday, he got lots of sun and felt mildly dehydrated. Hx of pericarditis that started just after February of 2017. SHx of rotator cuff surgery and shaved bone spur that has been giving him pain since September. He is currently on Ibuprofen and hydrocodone. - History Of Current Complaint Chief Complaint: EDGeneral Stated Complaint: NOT FEELING RIGHT Time Seen by Provider: 04/21/17 03:23 Hx Obtained From: Patient Onset/Duration: Sudden Onset, Started hours ago, Still Present - PALACIOS and dry mouth Initially Headache Was: Moderate Currently Pain Is: Moderate Timing: Constant - PALACIOS and dry mouth, Intermittent, Lasting: - panic attack Character: Sharp Location of Headache: Diffuse Radiates to: does not radiate Aggravating Factor: Other - unknown Allevating Factors: Other (Noted In Comments) - unknown Associated Signs And Symptoms: Other (Noted In Comments) - dry mouth, panic attack, diaphoresis - Risk Factors SAH Risk Factors: Smoking SDH Risk Factors: Male - Allergies/Home Medications Allergies/Adverse Reactions: Allergies Allergy/AdvReac Type Severity Reaction Status Date / Time ENVIRONMENTAL Allergy Severe CONGESTION, Uncoded 03/26/17 00:05 COUGH PMH/Surg Hx/FS Hx/Imm Hx Previously Healthy: No - pericarditis Endocrine/Hematology History: Denies: Hx Anticoagulant Therapy, Hx Diabetes, Hx Thyroid Disease Cardiovascular History: Reports: Hx Angina, Other Cardiovascular Problems/ Disorders - Hx Pericarditis Denies: Hx Congestive Heart Failure, Hx Coronary Artery Disease, Hx Deep Vein Thrombosis, Hx Hypercholesterolemia - patient says he does not know, Hx Hypertension, Hx Myocardial Infarction, Hx Pacemaker/ICD, Hx Peripheral Vascular Disease, Hx Valvular Heart Disease Respiratory History: Reports: Hx Asthma - as a child, rarely as an adult, Other Respiratory Problems/Disorders - PNA Denies: Hx Chronic Obstructive Pulmonary Disease (COPD), Hx Lung Cancer GI History: Denies: Hx Gall Bladder Disease, Hx Gastrointestinal Bleed, Hx Ulcer, Hx Urosepsis History: Denies: Hx Kidney Stones, Hx Renal Disease Sensory History: Denies: Hx Contacts or Glasses, Hx Hearing Aid Opthamlomology History: Denies: Hx Contacts or Glasses Neurological History: Denies: Hx Dementia, Hx Headaches, Hx Migraine, Hx Seizures, Hx Transient Ischemic Attacks (TIA) Psychiatric History: Denies: Hx Anxiety, Hx Depression, Hx Schizophrenia, Hx Bipolar Disorder - Surgical History Surgery Procedure, Year, and Place: appendectomy. 1997 LEFT shoulder surgery - TORN ROTATOR CUFF. Sep 17 RIGHT shoulder sugery - TORN ROTATOR CUFF. CARPAL TUNNEL RELEASE, double. ORAL SURGERY 03/08/2016 with ANESTHESIA Infectious Disease History: No Infectious Disease History: Denies: Hx Clostridium Difficile, Hx Hepatitis, Hx Human Immunodeficiency Virus (HIV), Hx of Known/Suspected MRSA, Hx Shingles, Hx Tuberculosis, Hx Known/ Suspected VRE, Hx Known/Suspected VRSA, History Other Infectious Disease, Traveled Outside the [place] in Last 30 Days - Family History Known Family History: Positive: Cardiac Disease - UNCLE-STENTS, AUNT/UNCLE- MITRAL VALVE PROLAPSE, BROTHER-PORPHYRIA, Hypertension, Diabetes - Social History Occupation: Employed Full-time Lives: With Family Alcohol Use: Rare Hx Substance Use: No Substance Use Type: Reports: None Hx Tobacco Use: Yes - ADVISED TO STOP, USING PATCH NOW Smoking Status (MU): Heavy Every Day Tobacco Smoker Type: Cigarettes Amount Used/How Often: 1/2 PPD Length of Time of Smoking/Using Tobacco: 20 years Have You Smoked in the Last Year: Yes Review of Systems Positive: Skin Diaphoresis. Negative: Fever, Chills, Fatigue Eyes: Negative Positive: Other - dry mouth. Negative: Epistaxis, Dental Pain, Sore Throat, Ear Ache, Nasal Discharge Cardiovascular: Negative Respiratory: Negative Gastrointestinal: Negative Genitourinary: Negative Musculoskeletal: Negative Skin: Negative Positive: Headache. Negative: Weakness, Paresthesia, Numbness, Syncope, Slurred Speech Positive: Other - episode of panic. Negative: Anxious, Depressed All Other Systems Reviewed And Are Negative: Yes Physical Exam - Summary Physical Exam Summary: General: Well appearing, no pain distress Skin: Warm, Skin Color Reflects Adequate Perfusion, Dry Eyes: EOMI, CORINE ENT: Pharynx normal, TMs normal Neck: Supple, nontender Respiratory: CTA, breath sounds present, no rhonchi, no wheezes, no rales Cardiovascular: RRR, no murmur, no rub, no gallop Abdomen: Soft, nontender, Non-distended, no guarding, no rebound Bowel: Present Musculoskeletal: LUKE, No edema; POSITIVE: steri strips over left shoulder, clean dry intact Neuro: Sensory/motor intact, A&Ox3, CN intact 2-12 Psych: Affect/mood appropriate Triage Information Reviewed: Yes Vital Signs On Initial Exam: Initial Vitals Temp Pulse Resp BP Pulse Ox 98.5 F 81 16 130/83 97 04/21/17 03:27 04/21/17 03:27 04/21/17 03:27 04/21/17 03:27 04/21/17 03:27 Vital Signs Reviewed: Yes - Falguni Coma Scale Coma Scale Total: 15 Diagnostics - Vital Signs Vital Signs Temp Pulse Resp BP Pulse Ox 04/21/17 03:27 98.5 F 81 16 130/83 97 - Laboratory Lab Results: Lab Results 04/21/17 Range/Units 04:00 WBC 12.6 H (3.5-10.8) 10^3/ul RBC 4.57 (4.0-5.4) 10^6/ul Hgb 14.0 (14.0-18.0) g/dl Hct 42 (42-52) % MCV 92 (80-94) fL MCH 31 (27-31) pg MCHC 34 (31-36) g/dl RDW 13 (10.5-15) % Plt Count 266 (150-450) 10^3/ul MPV 7 L (7.4-10.4) um3 Neut % (Auto) 73.3 (38-83) % Lymph % (Auto) 18.2 L (25-47) % Whitman % (Auto) 7.2 (1-9) % Eos % (Auto) 0.9 (0-6) % Baso % (Auto) 0.4 (0-2) % Absolute Neuts (auto) 9.3 H (1.5-7.7) 10^3/ul Absolute Lymphs (auto) 2.3 (1.0-4.8) 10^3/ul Absolute Monos (auto) 0.9 H (0-0.8) 10^3/ul Absolute Eos (auto) 0.1 (0-0.6) 10^3/ul Absolute Basos (auto) 0.1 (0-0.2) 10^3/ul Absolute Nucleated RBC 0 10^3/ul Nucleated RBC % 0 Result Diagrams: 04/21/17 04:00 04/21/17 04:00 Lab Statement: Any lab studies that have been ordered have been reviewed, and results considered in the medical decision making process. - EKG EKG 0349 Cardiac Rate: NL - 69 BPM EKG Interpretation: diffuse ST elevations that were improved from ekgs on and on 03/08/17 Headache Course/Dx - Course Course Of Treatment: 37 yo male with recent diagnosis of pericarditis and left shoulder surgery who woke up from a dream with dry mouth and headache and anxiety. labs ,ekg were unchanged and pt is feeling better ok to go home - Diagnoses Provider Diagnoses: Anxiety Discharge - Discharge Plan Condition: Stable Disposition: HOME The documentation as recorded by the Laron sandoval Aidan accurately reflects the service I personally performed and the decisions made by me, Buffy Stewart MD.
[2017-04-21 05:47] VITALS: BP 124/76
== END 2017-04-21 05:46 | disposition home or self-care (01) ==
LOC: ED 03:15
DX: F41.9 Anxiety disorder, unspecified (principal); R51 Headache; R61 Generalized hyperhidrosis; I20.9 Angina pectoris, unspecified; I31.9 Disease of pericardium, unspecified; J45.909 Unspecified asthma, uncomplicated; F17.210 Nicotine dependence, cigarettes, uncomplicated
CPT/HCPCS: 36415; 80053; 83735; 85025; 93005; 96360; 99283

== ENCOUNTER 2017-06-17 21:31 | Emergency (ER) | payer BC ==
[2017-06-17 21:36] VITALS: BP 138/84
[2017-06-17] MEDS ORDERED: Ketorolac INJ* 30 MG/ML 1 ML VIAL IV PUSH ONE (22:37)
[2017-06-17 23:18] LABS: Hematocrit 43 % (42-52); Hemoglobin 14.7 g/dl (14.0-18.0); Mean Corpuscular HGB Conc 34 g/dl (31-36); Mean Corpuscular Hemoglobin 31 pg (27-31); Mean Corpuscular Volume 92 fL (80-94); Mean Platelet Volume 7 um3 (7.4-10.4); Red Blood Count 4.69 10^6/ul (4.0-5.4); Red Cell Distribution Width 14 % (10.5-15); White Blood Count 10.5 10^3/ul (3.5-10.8)
[2017-06-17 23:33] LABS: Albumin 4.1 g/dL (3.2-5.2); BUN/Creatinine Ratio 23.2 (8-20); EGFR Non-African American 105.7 (>60); Globulin 2.8 g/dL (2-4); Potassium 3.9 mmol/L (3.5-5.0); Total Bilirubin 0.4 mg/dL (0.2-1.0); Total Protein 6.9 g/dL (6.4-8.9)
--- NOTE | 2017-06-17 23:42 | ED ---
I, Oh,Soohyun, scribed for Odilon Rosa MD on 06/17/17 at 2238 . HPI Chest Pain - HPI Summary HPI Summary: THis 37 y/o male presents to ED for intermittent sharp CP since today AM. Positive "increased heart rate" over 120s this evening lasting about 45 minutes to an hour. Deep breath does not make pain worse. Position change such as sitting forward or lying down does not make pain worse. PMHx is significant for pericarditis, and pt states CP feels similar to his last episode. Primary care involves Dr. Estrada at [place] with last visit about 3 months ago. - History of Current Complaint Chief Complaint: EDChestPainROMI Time Seen by Provider: 06/17/17 22:29 Hx Obtained From: Patient, Medical Records Onset/Duration: Started Hours Ago, Atraumatic, Still Present Timing: Intermittent Pain Intensity: 6 Pain Scale Used: 0-10 Numeric Chest Pain Location: Diffuse Chest Pain Radiates: No Character: Sharp/Stabbing Aggravating Factor(s): Nothing Alleviating Factor(s): Spontaneous Resolution Associated Signs and Symptoms: Positive: Chest Pain. Negative: Fever - Additional Pertinent History Primary Care Physician: [id number] - Allergy/Home Medications Allergies/Adverse Reactions: Allergies Allergy/AdvReac Type Severity Reaction Status Date / Time ENVIRONMENTAL Allergy Severe CONGESTION, Uncoded 03/26/17 00:05 COUGH PMH/Surg Hx/FS Hx/Imm Hx Endocrine/Hematology History: Denies: Hx Anticoagulant Therapy, Hx Diabetes, Hx Thyroid Disease Cardiovascular History: Reports: Hx Angina, Other Cardiovascular Problems/ Disorders - Hx Pericarditis Denies: Hx Congestive Heart Failure, Hx Coronary Artery Disease, Hx Deep Vein Thrombosis, Hx Hypercholesterolemia - patient says he does not know, Hx Hypertension, Hx Myocardial Infarction, Hx Pacemaker/ICD, Hx Peripheral Vascular Disease, Hx Valvular Heart Disease Respiratory History: Reports: Hx Asthma - as a child, rarely as an adult, Other Respiratory Problems/Disorders - PNA Denies: Hx Chronic Obstructive Pulmonary Disease (COPD), Hx Lung Cancer GI History: Denies: Hx Gall Bladder Disease, Hx Gastrointestinal Bleed, Hx Ulcer, Hx Urosepsis History: Denies: Hx Kidney Stones, Hx Renal Disease Sensory History: Denies: Hx Contacts or Glasses, Hx Hearing Aid Opthamlomology History: Denies: Hx Contacts or Glasses Neurological History: Denies: Hx Dementia, Hx Headaches, Hx Migraine, Hx Seizures, Hx Transient Ischemic Attacks (TIA) Psychiatric History: Denies: Hx Anxiety, Hx Depression, Hx Schizophrenia, Hx Bipolar Disorder - Surgical History Surgery Procedure, Year, and Place: appendectomy. 1997 LEFT shoulder surgery - [facility]. Sep 17 RIGHT shoulder sugery - [facility]. CARPAL TUNNEL RELEASE, double. ORAL SURGERY 03/08/2016 with ANESTHESIA Infectious Disease History: No Infectious Disease History: Denies: Hx Clostridium Difficile, Hx Hepatitis, Hx Human Immunodeficiency Virus (HIV), Hx of Known/Suspected MRSA, Hx Shingles, Hx Tuberculosis, Hx Known/ Suspected VRE, Hx Known/Suspected VRSA, History Other Infectious Disease, Traveled Outside the [place] in Last 30 Days - Family History Known Family History: Positive: Cardiac Disease - UNCLE-STENTS, AUNT/UNCLE- MITRAL VALVE PROLAPSE, BROTHER-PORPHYRIA, Hypertension, Diabetes - Social History Alcohol Use: Rare Hx Substance Use: No Substance Use Type: Reports: None Hx Tobacco Use: Yes - ADVISED TO STOP, USING PATCH NOW Smoking Status (MU): Heavy Every Day Tobacco Smoker Type: Cigarettes Amount Used/How Often: 1/2 PPD Length of Time of Smoking/Using Tobacco: 20 years Have You Smoked in the Last Year: Yes Review of Systems Negative: Fever Positive: Chest Pain, Other - "increased heart rate" Negative: Shortness Of Breath All Other Systems Reviewed And Are Negative: Yes Physical Exam Triage Information Reviewed: Yes Vital Signs On Initial Exam: Initial Vitals Temp Pulse Resp BP Pulse Ox 98.1 F 92 16 138/84 98 06/17/17 21:35 06/17/17 21:35 06/17/17 21:35 06/17/17 21:35 06/17/17 21:35 Vital Signs Reviewed: Yes Appearance: Positive: No Pain Distress, Thin Skin: Positive: Warm Head/Face: Positive: Normal Head/Face Inspection Eyes: Positive: CORINE ENT: Positive: Hearing grossly normal Neck: Positive: Supple Respiratory/Lung Sounds: Positive: Clear to Auscultation, Breath Sounds Present Cardiovascular: Positive: RRR Abdomen Description: Positive: Nontender, Soft Bowel Sounds: Positive: Present Musculoskeletal: Positive: Strength/ROM Intact Neurological: Positive: Alert, Oriented to Person Place, Time - Falguni Coma Scale Coma Scale Total: 15 Diagnostics - Vital Signs Vital Signs Temp Pulse Resp BP Pulse Ox 06/17/17 21:35 98.1 F 92 16 138/84 98 - Laboratory Result Diagrams: 06/17/17 23:05 06/17/17 23:05 Lab Statement: Any lab studies that have been ordered have been reviewed, and results considered in the medical decision making process. - Radiology CXR Radiology Interpretation Completed By: ED Physician - EKG 2141 Cardiac Rate: NL EKG Rhythm: Sinus Rhythm - 85 bpm Re-Evaluation - Re-Evaluation First Eval Change: Improved Chest Pain Course/Dx - Course Assessment/Plan: This 37 y/o male presents to ED for intermittent CP since this morning. PMHx is significant for pericarditis. CXR and EKG are noted normal. Blood work is unremarkable except for mildly elevated blood glucose of 110. Pt remains stable throughout ED course, and he is discharged. - Diagnoses Provider Diagnoses: Chest pain Discharge - Discharge Plan Condition: Improved Disposition: HOME Patient Education Materials: Chest Pain (ED) Referrals: Sophie Calix MD [Primary Care Provider] - 2 Days The documentation as recorded by the Conrad sandoval Soohyun accurately reflects the service I personally performed and the decisions made by , Odilon Rosa MD.
--- NOTE | 2017-06-18 07:47 | RAD ---
Indication: Chest pain. 2 views of the chest including dual energy PA views demonstrate no mediastinal shift. Lung sheridan demonstrate no pleural fluid, pneumonia or pneumothorax. When compared to previous exam of March 26, 2017 no significant change is noted. IMPRESSION: No active cardiopulmonary disease is noted.
== END 2017-06-18 00:07 | disposition home or self-care (01) ==
LOC: ED 21:31
DX: R07.89 Other chest pain (principal); I20.9 Angina pectoris, unspecified; J45.909 Unspecified asthma, uncomplicated; F17.210 Nicotine dependence, cigarettes, uncomplicated
CPT/HCPCS: 36415; 71020; 80053; 83605; 84484; 85025; 93005; 96374; 99283; J1885

== ENCOUNTER 2017-07-30 21:18 | Emergency (ER) | payer BC ==
[2017-07-30 21:56] VITALS: BP 131/86
== END 2017-07-31 00:19 | disposition left against medical advice (07) ==
LOC: ED 21:18
DX: R07.9 Chest pain, unspecified (principal); Z53.21 Procedure and treatment not carried out due to patient leaving prior to being seen by health care provider
CPT/HCPCS: 93005

== ENCOUNTER → 2017-08-09 01:00 | Emergency (ER) | payer BC ==
[~2017-08-09 01:00] MED LIST: Acetaminophen TAB* 325 MG PO ONE; Aspirin Low Dose CHEW TAB* 81 MG PO ONE
[2017-08-09 02:11] LABS: Hematocrit 44 % (42-52); Hemoglobin 15.1 g/dl (14.0-18.0); Mean Corpuscular HGB Conc 35 g/dl (31-36); Mean Corpuscular Hemoglobin 32 pg (27-31); Mean Corpuscular Volume 91 fL (80-94); Mean Platelet Volume 7 um3 (7.4-10.4); Red Blood Count 4.79 10^6/ul (4.0-5.4); Red Cell Distribution Width 13 % (10.5-15); White Blood Count 10.2 10^3/ul (3.5-10.8)
[2017-08-09 02:27] LABS: Albumin 4.3 g/dL (3.2-5.2); BUN/Creatinine Ratio 24.2 (8-20); C Reactive Protein 3.11 mg/L (< 5.00); Calcium 9.4 mg/dL (8.6-10.3); EGFR African American 120.6 (>60); EGFR Non-African American 93.7 (>60); Globulin 2.8 g/dL (2-4); Magnesium 2.2 mg/dL (1.9-2.7); Total Bilirubin 0.6 mg/dL (0.2-1.0); Total Protein 7.1 g/dL (6.4-8.9)
[2017-08-09 02:30] LABS: Troponin I 0.01 ng/mL (<0.04)
[2017-08-09 02:47] LABS: T4 6.51 mcg/mL (6.09-12.23)
[2017-08-09 02:54] LABS: TSH (Thyroid Stimulating Horm) 2.1 mcIU/mL (0.34-5.60)
[2017-08-09 03:01] LABS: Erythrocyte Sed Rate 8 mm/Hr (0-14)
--- NOTE | 2017-08-09 07:54 | RAD ---
HISTORY: Chest pain, history of pericarditis COMPARISONS: June 17, 2017 VIEWS: 4: Frontal dual-energy and lateral views of the chest. FINDINGS: CARDIOMEDIASTINAL SILHOUETTE: The cardiomediastinal silhouette is normal. ANEL: The anel are normal. PLEURA: The costophrenic angles are sharp. No pleural abnormalities are noted. LUNG PARENCHYMA: The lungs are clear. ABDOMEN: The upper abdomen is clear. There is no subphrenic gas. BONES AND SOFT TISSUES: No bone or soft tissue abnormalities are noted. OTHER: None. IMPRESSION: NO ACTIVE CARDIOPULMONARY DISEASE.
[2017-08-09 08:16] VITALS: BP 130/72
--- NOTE | 2017-08-09 14:24 | ED ---
Tez Larios Rebecca, scribed for Gloria Simpson MD on 08/09/17 at 0125 . Palpitations / Dysrhythmia - HPI Summary HPI Summary: Pt is a 37 y/o M who presents to ED c/o palpitations characterized as fast. Sx began at approximately 2330. Sx aggravated and alleviated by nothing. Denies CP. Pt has been experiencing similar episodes intermittently for the past 8 months with a Dx of pericarditis. He was put on Colchicine and 600 mg Ibuprofen daily for about a month. After ceasing those medications, he began experiencing sx similar to those today. He was then seen by his spark tester, Dr. Whitehead, who prescribed 3 months of Colchicine and 600 mg Ibuprofen and he was feeling well so he stopped prematurely, about 10 days early. About 1.5 weeks ago, the pt began experiencing CP with no palpitations and started the medications again , during which he had no symptoms. Then, today his palpitations without any chest pain returned. SHx quit smoking 3 weeks ago. - History of Current Complaint Chief Complaint: EDDysrhythmPalp Hx Obtained From: Patient Onset/Duration: Still Present Timing: Intermittent Episodes Lasting: Severity Currently: None Character: Fast Aggravating: Nothing Alleviating: Nothing Associated Signs & Symptoms: Negative Related History: Similar Episode/Dx as - Prior instances of symptoms, described in the HPI - Allergy/Home Medications Allergies/Adverse Reactions: Allergies Allergy/AdvReac Type Severity Reaction Status Date / Time ENVIRONMENTAL Allergy Severe CONGESTION, Uncoded 03/26/17 00:05 COUGH PMH/Surg Hx/FS Hx/Imm Hx Endocrine/Hematology History: Denies: Hx Anticoagulant Therapy, Hx Diabetes, Hx Thyroid Disease Cardiovascular History: Reports: Hx Angina, Other Cardiovascular Problems/ Disorders - Hx Pericarditis Denies: Hx Congestive Heart Failure, Hx Coronary Artery Disease, Hx Deep Vein Thrombosis, Hx Hypercholesterolemia - patient says he does not know, Hx Hypertension, Hx Myocardial Infarction, Hx Pacemaker/ICD, Hx Peripheral Vascular Disease, Hx Valvular Heart Disease Respiratory History: Reports: Hx Asthma - as a child, rarely as an adult, Other Respiratory Problems/Disorders - PNA Denies: Hx Chronic Obstructive Pulmonary Disease (COPD), Hx Lung Cancer GI History: Denies: Hx Gall Bladder Disease, Hx Gastrointestinal Bleed, Hx Ulcer, Hx Urosepsis History: Denies: Hx Kidney Stones, Hx Renal Disease Sensory History: Denies: Hx Contacts or Glasses, Hx Hearing Aid Opthamlomology History: Denies: Hx Contacts or Glasses Neurological History: Denies: Hx Dementia, Hx Headaches, Hx Migraine, Hx Seizures, Hx Transient Ischemic Attacks (TIA) Psychiatric History: Denies: Hx Anxiety, Hx Depression, Hx Schizophrenia, Hx Bipolar Disorder - Surgical History Surgery Procedure, Year, and Place: appendectomy. 1997 LEFT shoulder surgery - T[facility]. Sep 17 RIGHT shoulder sugery - TORN [facility]. CARPAL TUNNEL RELEASE, double. ORAL SURGERY 03/08/2016 with ANESTHESIA Infectious Disease History: No Infectious Disease History: Denies: Hx Clostridium Difficile, Hx Hepatitis, Hx Human Immunodeficiency Virus (HIV), Hx of Known/Suspected MRSA, Hx Shingles, Hx Tuberculosis, Hx Known/ Suspected VRE, Hx Known/Suspected VRSA, History Other Infectious Disease, Traveled Outside the in Last 30 Days - Family History Known Family History: Positive: Cardiac Disease - UNCLE-STENTS, AUNT/UNCLE- MITRAL VALVE PROLAPSE, BROTHER-PORPHYRIA, Hypertension, Diabetes - Social History Alcohol Use: Rare Hx Substance Use: No Substance Use Type: Reports: None Hx Tobacco Use: Yes - ADVISED TO STOP, USING PATCH NOW Smoking Status (MU): Heavy Every Day Tobacco Smoker Type: Cigarettes Amount Used/How Often: 1/2 PPD Length of Time of Smoking/Using Tobacco: 20 years Have You Smoked in the Last Year: Yes Review of Systems Negative: Fever Positive: Palpitations. Negative: Chest Pain All Other Systems Reviewed And Are Negative: Yes Physical Exam Triage Information Reviewed: Yes Vital Signs On Initial Exam: Initial Vitals Temp Pulse Resp BP Pulse Ox 98.0 F 96 14 151/79 98 08/09/17 01:04 08/09/17 01:04 08/09/17 01:04 08/09/17 01:04 08/09/17 01:04 Vital Signs Reviewed: Yes Appearance: Positive: Well-Nourished, Ill-Appearing - Mildly, Pain Distress Skin: Positive: Warm, Skin Color Reflects Adequate Perfusion Head/Face: Positive: Normal Head/Face Inspection Eyes: Positive: Conjunctiva Clear ENT: Positive: Normal ENT inspection Neck: Positive: Supple Respiratory/Lung Sounds: Positive: Clear to Auscultation, Breath Sounds Present , Other - No repsiratory distress Cardiovascular: Positive: RRR, Pulses are Symmetrical in both Upper and Lower Extremities, Other - Brisk capillary refill. Negative: Murmur Abdomen Description: Positive: Nontender, Soft Bowel Sounds: Positive: Present Musculoskeletal: Positive: Strength/ROM Intact Neurological: Positive: Sensory/Motor Intact, Alert, Oriented to Person Place, Time, Facial Symmetry, Speech Normal Psychiatric: Positive: Normal Diagnostics - Vital Signs Vital Signs Temp Pulse Resp BP Pulse Ox 08/09/17 01:04 98.0 F 96 14 151/79 98 - Laboratory Lab Results: Lab Results 08/09/17 08/09/17 08/09/17 Range/Units 01:50 01:50 01:50 WBC 10.2 (3.5-10.8) 10^3/ul RBC 4.79 (4.0-5.4) 10^6/ul Hgb 15.1 (14.0-18.0) g/dl Hct 44 (42-52) % MCV 91 (80-94) fL MCH 32 H (27-31) pg MCHC 35 (31-36) g/dl RDW 13 (10.5-15) % Plt Count 287 (150-450) 10^3/ul MPV 7 L (7.4-10.4) um3 Neut % (Auto) 64.4 (38-83) % Lymph % (Auto) 24.1 L (25-47) % Woodford % (Auto) 10.0 H (1-9) % Eos % (Auto) 1.0 (0-6) % Baso % (Auto) 0.5 (0-2) % Absolute Neuts (auto) 6.6 (1.5-7.7) 10^3/ul Absolute Lymphs (auto) 2.5 (1.0-4.8) 10^3/ul Absolute Monos (auto) 1.0 H (0-0.8) 10^3/ul Absolute Eos (auto) 0.1 (0-0.6) 10^3/ul Absolute Basos (auto) 0.1 (0-0.2) 10^3/ul Absolute Nucleated RBC 0.01 10^3/ul Nucleated RBC % 0 ESR 8 (0-14) mm/Hr INR (Anticoag Therapy) 0.84 L (0.89-1.11) APTT 27.6 (26.0-36.3) seconds D-Dimer, Quantitative < 200 (Less Than 230) ng/mL Sodium (133-145) mmol/L Potassium (3.5-5.0) mmol/L Chloride (101-111) mmol/L Carbon Dioxide (22-32) mmol/L Anion Gap (2-11) mmol/L BUN (6-24) mg/dL Creatinine (0.67-1.17) mg/dL Est GFR ( Amer) (>60) Est GFR (Non-Af Amer) (>60) BUN/Creatinine Ratio (8-20) Glucose (70-100) mg/dL Lactic Acid (0.5-2.0) mmol/L Calcium (8.6-10.3) mg/dL Magnesium (1.9-2.7) mg/dL Total Bilirubin (0.2-1.0) mg/dL AST (13-39) U/L ALT (7-52) U/L Alkaline Phosphatase (34-104) U/L Total Creatine Kinase (10-223) U/L CK-MB (CK-2) (0.6-6.3) ng/mL Troponin I (<0.04) ng/mL C-Reactive Protein (< 5.00) mg/L B-Natriuretic Peptide 14 ( - 100) pg/mL Total Protein (6.4-8.9) g/dL Albumin (3.2-5.2) g/dL Globulin (2-4) g/dL Albumin/Globulin Ratio (1-3) TSH (0.34-5.60) mcIU/mL Thyroxine (T4) (6.09-12.23) mcg/mL 08/09/17 08/09/17 08/09/17 Range/Units 01:50 01:50 06:00 WBC (3.5-10.8) 10^3/ul RBC (4.0-5.4) 10^6/ul Hgb (14.0-18.0) g/dl Hct (42-52) % MCV (80-94) fL MCH (27-31) pg MCHC (31-36) g/dl RDW (10.5-15) % Plt Count (150-450) 10^3/ul MPV (7.4-10.4) um3 Neut % (Auto) (38-83) % Lymph % (Auto) (25-47) % Woodford % (Auto) (1-9) % Eos % (Auto) (0-6) % Baso % (Auto) (0-2) % Absolute Neuts (auto) (1.5-7.7) 10^3/ul Absolute Lymphs (auto) (1.0-4.8) 10^3/ul Absolute Monos (auto) (0-0.8) 10^3/ul Absolute Eos (auto) (0-0.6) 10^3/ul Absolute Basos (auto) (0-0.2) 10^3/ul Absolute Nucleated RBC 10^3/ul Nucleated RBC % ESR (0-14) mm/Hr INR (Anticoag Therapy) (0.89-1.11) APTT (26.0-36.3) seconds D-Dimer, Quantitative (Less Than 230) ng/mL Sodium 137 (133-145) mmol/L Potassium 4.0 (3.5-5.0) mmol/L Chloride 103 (101-111) mmol/L Carbon Dioxide 28 (22-32) mmol/L Anion Gap 6 (2-11) mmol/L BUN 22 (6-24) mg/dL Creatinine 0.91 (0.67-1.17) mg/dL Est GFR ( Amer) 120.6 (>60) Est GFR (Non-Af Amer) 93.7 (>60) BUN/Creatinine Ratio 24.2 H (8-20) Glucose 115 H (70-100) mg/dL Lactic Acid 1.2 (0.5-2.0) mmol/L Calcium 9.4 (8.6-10.3) mg/dL Magnesium 2.2 (1.9-2.7) mg/dL Total Bilirubin 0.60 (0.2-1.0) mg/dL AST 16 (13-39) U/L ALT 20 (7-52) U/L Alkaline Phosphatase 83 (34-104) U/L Total Creatine Kinase 128 (10-223) U/L CK-MB (CK-2) 4.3 (0.6-6.3) ng/mL Troponin I 0.01 0.01 (<0.04) ng/mL C-Reactive Protein 3.11 (< 5.00) mg/L B-Natriuretic Peptide ( - 100) pg/mL Total Protein 7.1 (6.4-8.9) g/dL Albumin 4.3 (3.2-5.2) g/dL Globulin 2.8 (2-4) g/dL Albumin/Globulin Ratio 1.5 (1-3) TSH 2.10 (0.34-5.60) mcIU/mL Thyroxine (T4) 6.51 (6.09-12.23) mcg/mL Result Diagrams: 08/09/17 01:50 08/09/17 01:50 Lab Statement: Any lab studies that have been ordered have been reviewed, and results considered in the medical decision making process. - Radiology CXR Xray Interpretation: No Acute Changes Radiology Interpretation Completed By: ED Physician - EKG 0111 Cardiac Rate: NL - 91 bpm EKG Rhythm: Sinus Rhythm EKG Interpretation: Minimal diffuse 1/[address] elevations EKG Comparison: No Significant Change - From EKG on 07/30/2017 Re-Evaluation - Re-Evaluation First Eval Re-Evaluation Time: 04:18 Change: Unchanged Comment: Updated pt on his troponin results. Pt confirms that his primary complaint is palpitations with vyer mild CP. Pain is currently mild, ranked 1/ 10 and is aggravated by palpation to the area. Second Eval Re-Evaluation Time: 07:10 Change: Improved Comment: PALACIOS was resolved by Tylenol. Continues to deny CP. Explained that a call has been made to Dr. Whitehead and that the mission coordinator coin wrapping machine operator was contacted. Answered any questions that the pt had. pt reports that he would rather see Dr. Whitehead and that he is willing to go to [facility] if necessary. HR was between 80 and 90. Pt continues to feel well. Course/Dx - Course Assessment/Plan: Pt is a 37 y/o M who presents to ED c/o palpitations characterized as fast. Sx began at approximately 2330. Sx aggravated and alleviated by nothing. Denies CP. Pt has been experiencing similar episodes intermittently for the past 8 months with a Dx of pericarditis. He was put on Colchicine and 600 mg Ibuprofen daily for about a month. After ceasing those medications, he began experiencing sx similar to those today. He was then seen by his spark tester, Dr. Whitehead, who prescribed 3 months of Colchicine and 600 mg Ibuprofen and he was feeling well so he stopped prematurely, about 10 days early. About 1.5 weeks ago, the pt began experiencing CP with no palpitations and started the medications again, during which he had no symptoms. Then, today his palpitations without any chest pain returned. SHx quit smoking 3 weeks ago. CXr is negative, as read by ED physician. EKG is sinus rhythm with minimal diffuse 1/[address] elevations, unchanged from prior EKG. In the ED course, pt received Tylenol and ASA. Discussed care of pt with Dr. Whitehead who stated that the pt can be D/C to home. Pt will be D/C with Dx of chest wall pain. He understands and agrees. Pt medications reviewed. Elevated BP noted. - Diagnoses Provider Diagnoses: Elevated BP without diagnosis of hypertension, Chest wall pain - Physician Notifications Discussed Care Of Patient With: Pb Whitehead Time Discussed With Above Provider: 07:51 Instructed by Provider To: Other - Disscussed the pt with his spark tester who reports that the pt can be D/C to home. Discharge - Discharge Plan Condition: Stable Disposition: HOME Patient Education Materials: Chest Wall Pain (ED) Referrals: Pb Whitehead MD [Medical Doctor] - 1 Week (Call his office in [place] to be seen if you would like on a Saturday or Saturday on a nonurgent basis. ) Sophie Calix MD [Primary Care Provider] - Additional Instructions: Dr. Whitehead feels that this is not pericarditis at this time and that you may go away this weekend. He feels it is chest wall pain and that you are a safe discharge. Return to the ER if you have any new or worsening symptoms. The documentation as recorded by the Tez sandoval Rebecca accurately reflects the service I personally performed and the decisions made by me, Gloria Simpson MD.
== END | disposition home or self-care (01) ==
LOC: ED 01:00
DX: R03.0 Elevated blood-pressure reading, without diagnosis of hypertension (principal); R07.89 Other chest pain; R00.2 Palpitations; F17.210 Nicotine dependence, cigarettes, uncomplicated
CPT/HCPCS: 36415; 71020; 80053; 82550; 82553; 83605; 83735; 83880; 84436; 84443; 84484; 85025; 85379; 85610; 85652; 85730; 86140; 87040; 93005; 99283; A9270-GY

== ENCOUNTER 2017-11-02 19:33 | Emergency (ER) | payer BC ==
[2017-11-02] MEDS ORDERED: Ibuprofen TAB* 800 MG PO ONE (20:38)
[2017-11-02 20:41] LABS: ABS Basophils 0.1 10^3/ul (0-0.2); ABS Eosinophils 0.1 10^3/ul (0-0.6); ABS Lymphocytes 3.2 10^3/ul (1.0-4.8); ABS Nucleated RBC 0.01 10^3/ul; Eosinophil % 1.1 % (0-6); Hematocrit 44 % (42-52); Hemoglobin 14.8 g/dl (14.0-18.0); Lymphocyte % 27.8 % (25-47); Mean Corpuscular HGB Conc 34 g/dl (31-36); Mean Corpuscular Hemoglobin 31 pg (27-31); Mean Corpuscular Volume 92 fL (80-94); Mean Platelet Volume 7 um3 (7.4-10.4); Nucleated Red Blood Cells % 0.1; Platelet Count 310 10^3/ul (150-450); Red Blood Count 4.75 10^6/ul (4.0-5.4); Red Cell Distribution Width 13 % (10.5-15); White Blood Count 11.4 10^3/ul (3.5-10.8)
[2017-11-02] MEDS ORDERED: Metoclopramide IV* 5 MG/ML 2 ML VIAL IV SLOW PU ONE (20:43)
[2017-11-02] MEDS ORDERED: Ketorolac INJ* 30 MG/ML 1 ML VIAL IV PUSH ONE (20:43)
--- NOTE | 2017-11-02 20:49 | RAD ---
INDICATION: Chest pain COMPARISON: Most recent comparison chest x-rays dated August 09, 2017 TECHNIQUE: Single AP portable view of the chest was obtained. FINDINGS: Image quality is compromised due to the relative inferiority of a portable chest x-ray. The heart and mediastinum exhibit normal size and contour. The lungs are grossly clear. There is no evidence of a large pleural effusion. Visualized bones are normal for the patient's age. IMPRESSION: No radiographic evidence for acute cardiopulmonary abnormality on this portable chest x-ray.
[2017-11-02 20:55] LABS: EGFR Non-African American 96.2 (>60)
[2017-11-02] MEDS ORDERED: Colchicine* 0.6 MG TAB PO SCH (21:00)
[2017-11-02 23:35] VITALS: BP 120/77
--- NOTE | 2017-11-07 10:49 | ED ---
Shayan Larios Abhishek, scribed for Madhu Vergara MD on 11/02/17 at 2156 . Palpitations / Dysrhythmia - HPI Summary HPI Summary: This patient is a 37 year old M presenting to [facility] accompanied by female with a chief complaint of heart palpitations since 4 days ago. The patient rates the pain 0/10 in severity. Symptoms aggravated by nothing. Symptoms alleviated by nothing. Patient reports intermittent chest pain on the left side, fatigue, and migraines (2 days). Pertinent PMHx includes pericarditis. The pt also states that his abnormal EKG does not reach baseline often. Patient denies N/V/D, fevers, diaphoresis, chills, and SOB. Medications reviewed and the patient has taken. Patient also had a holter monitoring which was WNL at [facility]. - History of Current Complaint Chief Complaint: EDDysrhythmPalp Time Seen by Provider: 11/02/17 20:13 Hx Obtained From: Patient, Family/Mold Tooling Technician Onset/Duration: Gradual Onset, Lasting Days - since 4 days., Still Present Aggravating: Nothing Alleviating: Nothing Associated Signs & Symptoms: Chest Pain - left sided (intermittent) - Allergy/Home Medications Allergies/Adverse Reactions: Allergies Allergy/AdvReac Type Severity Reaction Status Date / Time ENVIRONMENTAL Allergy Severe CONGESTION, Uncoded 11/05/17 09:32 COUGH PMH/Surg Hx/FS Hx/Imm Hx Endocrine/Hematology History: Denies: Hx Anticoagulant Therapy, Hx Diabetes, Hx Thyroid Disease Cardiovascular History: Reports: Hx Angina, Other Cardiovascular Problems/ Disorders - Hx Pericarditis Denies: Hx Congestive Heart Failure, Hx Coronary Artery Disease, Hx Deep Vein Thrombosis, Hx Hypercholesterolemia - patient says he does not know, Hx Hypertension, Hx Myocardial Infarction, Hx Pacemaker/ICD, Hx Peripheral Vascular Disease, Hx Valvular Heart Disease Respiratory History: Reports: Hx Asthma - as a child, rarely as an adult, Other Respiratory Problems/Disorders - PNA Denies: Hx Chronic Obstructive Pulmonary Disease (COPD), Hx Lung Cancer GI History: Denies: Hx Gall Bladder Disease, Hx Gastrointestinal Bleed, Hx Ulcer, Hx Urosepsis History: Denies: Hx Kidney Stones, Hx Renal Disease Sensory History: Denies: Hx Contacts or Glasses, Hx Hearing Aid Opthamlomology History: Denies: Hx Contacts or Glasses Neurological History: Denies: Hx Dementia, Hx Headaches, Hx Migraine, Hx Seizures, Hx Transient Ischemic Attacks (TIA) Psychiatric History: Denies: Hx Anxiety, Hx Depression, Hx Schizophrenia, Hx Bipolar Disorder - Surgical History Surgery Procedure, Year, and Place: appendectomy. 1997 LEFT shoulder surgery - [facility]. Sep 17 RIGHT shoulder sugery - [facility]. CARPAL TUNNEL RELEASE, double. ORAL SURGERY 03/08/2016 with ANESTHESIA - Immunization History Date of Tetanus Vaccine: utd Date of Influenza Vaccine: none Infectious Disease History: No Infectious Disease History: Denies: Hx Clostridium Difficile, Hx Hepatitis, Hx Human Immunodeficiency Virus (HIV), Hx of Known/Suspected MRSA, Hx Shingles, Hx Tuberculosis, Hx Known/ Suspected VRE, Hx Known/Suspected VRSA, History Other Infectious Disease, Traveled Outside the [place] in Last 30 Days - Family History Known Family History: Positive: Cardiac Disease - UNCLE-STENTS, AUNT/UNCLE- MITRAL VALVE PROLAPSE, BROTHER-PORPHYRIA, Hypertension, Diabetes - Social History Alcohol Use: Rare Hx Substance Use: No Substance Use Type: Reports: None Hx Tobacco Use: Yes Smoking Status (MU): Heavy Every Day Tobacco Smoker Type: Cigarettes Amount Used/How Often: 1/2 PPD Length of Time of Smoking/Using Tobacco: 20 years Have You Smoked in the Last Year: Yes Review of Systems Positive: Fatigue. Negative: Fever, Chills, Skin Diaphoresis Eyes: Negative ENT: Negative Positive: Palpitations, Chest Pain Negative: Shortness Of Breath Negative: Vomiting, Diarrhea, Nausea Genitourinary: Negative Musculoskeletal: Negative Skin: Negative Positive: Headache - Migraines Psychological: Normal All Other Systems Reviewed And Are Negative: Yes Physical Exam - Summary Physical Exam Summary: Constitutional: Well-developed, Well-nourished, Alert. (-) Distressed Skin: Warm, Dry HENT: Normocephalic; Atraumatic Eyes: Conjunctiva normal Neck: Musculoskeletal ROM normal neck. (-) JVD, (-) Stridor, (-) Tracheal deviation Cardio: Rhythm regular, rate normal, Heart sounds normal; Intact distal pulses; The pedal pulses are 2+ and symmetric. Radial pulses are 2+ and symmetric. (-) Murmur Pulmonary/Chest wall: Effort normal. (-) Respiratory distress, (-) Wheezes, (-) Rales Abd: Soft, (-) Tenderness, (-) Distension, (-) Guarding, (-) Rebound Musculoskeletal: (-) Edema Lymph: (-) Cervical adenopathy Neuro: Alert, Oriented x3 Psych: Mood and affect Normal Triage Information Reviewed: Yes Vital Signs On Initial Exam: Initial Vitals Temp Pulse Resp BP Pulse Ox 97.6 F 95 16 140/87 98 11/02/17 19:36 11/02/17 19:36 11/02/17 19:36 11/02/17 19:36 11/02/17 19:36 Vital Signs Reviewed: Yes - [place] Coma Scale Coma Scale Total: 15 Diagnostics - Vital Signs Vital Signs Temp Pulse Resp BP Pulse Ox 11/02/17 19:36 97.6 F 95 16 140/87 98 - Laboratory Lab Results: Lab Results 11/02/17 11/02/17 11/02/17 Range/Units 20:25 20:25 20:25 WBC 11.4 H (3.5-10.8) 10^3/ul RBC 4.75 (4.0-5.4) 10^6/ul Hgb 14.8 (14.0-18.0) g/dl Hct 44 (42-52) % MCV 92 (80-94) fL MCH 31 (27-31) pg MCHC 34 (31-36) g/dl RDW 13 (10.5-15) % Plt Count 310 (150-450) 10^3/ul MPV 7 L (7.4-10.4) um3 Neut % (Auto) 61.4 (38-83) % Lymph % (Auto) 27.8 (25-47) % [place] % (Auto) 9.1 H (1-9) % Eos % (Auto) 1.1 (0-6) % Baso % (Auto) 0.6 (0-2) % Absolute Neuts (auto) 7.0 (1.5-7.7) 10^3/ul Absolute Lymphs (auto) 3.2 (1.0-4.8) 10^3/ul Absolute Monos (auto) 1.0 H (0-0.8) 10^3/ul Absolute Eos (auto) 0.1 (0-0.6) 10^3/ul Absolute Basos (auto) 0.1 (0-0.2) 10^3/ul Absolute Nucleated RBC 0.01 10^3/ul Nucleated RBC % 0.1 Sodium 135 (133-145) mmol/L Potassium 3.8 (3.5-5.0) mmol/L Chloride 101 (101-111) mmol/L Carbon Dioxide 27 (22-32) mmol/L Anion Gap 7 (2-11) mmol/L BUN 16 (6-24) mg/dL Creatinine 0.89 (0.67-1.17) mg/dL Est GFR ( Amer) 123.7 (>60) Est GFR (Non-Af Amer) 96.2 (>60) BUN/Creatinine Ratio 18.0 (8-20) Glucose 95 (70-100) mg/dL Lactic Acid 0.8 (0.5-2.0) mmol/L Calcium 9.4 (8.6-10.3) mg/dL Total Bilirubin 0.50 (0.2-1.0) mg/dL AST 16 (13-39) U/L ALT 17 (7-52) U/L Alkaline Phosphatase 90 (34-104) U/L Troponin I 0.00 (<0.04) ng/mL Total Protein 7.2 (6.4-8.9) g/dL Albumin 4.4 (3.2-5.2) g/dL Globulin 2.8 (2-4) g/dL Albumin/Globulin Ratio 1.6 (1-3) Result Diagrams: 11/02/17 20:25 11/02/17 20:25 Lab Statement: Any lab studies that have been ordered have been reviewed, and results considered in the medical decision making process. - Radiology Chest X-ray Radiology Interpretation Completed By: Radiologist - CXR reveals, per radiologist, No radiographic evidence for acute cardiopulmonary abnormality on this portable chest x-ray. ED physician has reviewed this radiology report and agrees. - EKG 1999 Cardiac Rate: NL EKG Interpretation: EKG 20:00 - ST elevations diffuse similar to previous EKG. No STEMI. 87 bpm Re-Evaluation - Re-Evaluation 2129 Re-Evaluation Time: 21:30 Comment: Pt had few severe PALACIOS. Gradual onset 3 days ago and they were described as diffuse. 2324 Re-Evaluation Time: 23:25 Comment: A reevaluation at 2324 revealed that the headache has resolved and that the pt was taking hydroxyzine at night for anxiety. We told him this could cause tachycardia. Course/Dx - Course Course Of Treatment: This patient is a 37 year old M presenting to [facility] accompanied by female with a chief complaint of heart palpitations since 4 days ago. Patient reports intermittent chest pain on the left side, fatigue, and migraine (2 days). Pertinent PMHx includes pericarditis. The pt also states that his abnormal EKG does not reach baseline often. Patient denies N/V/D, fevers, diaphoresis, chills, and SOB. Medications reviewed and the patient has taken. Patient also had a holter monitoring which was WNL at [facility]. CXR reveals, per radiologist, No radiographic evidence for acute cardiopulmonary abnormality on this portable chest x-ray. ED physician has reviewed this radiology report and agrees. EKG 20:00 - ST elevations diffuse similar to previous EKG; No STEMI; 87 bpm. A reevaluation at 2325 revealed that the headache has resolved and that the pt was taking hydroxyzine at night for anxiety. We told him this could cause tachycardia. Follow up with PCP within 2 to 3 days. The patient will be discharged home. The dx will be palpitations and headache. The patient is agreeable with this plan. - Diagnoses Provider Diagnoses: Palpitations, History of anxiety Discharge - Discharge Plan Condition: Stable Disposition: HOME Patient Education Materials: Palpitations (ED), General Headache (ED) Referrals: Sophie Calix MD [Primary Care Provider] - (Follow up with PCP within 2 to 3 days. ) Additional Instructions: RETURN TO THE EMERGENCY DEPARTMENT FOR CHANGING OR WORSENING SYMPTOMS. The documentation as recorded by the Shayan sandoval Abhishek accurately reflects the service I personally performed and the decisions made by , Madhu Vergara MD.
== END 2017-11-02 23:45 | disposition home or self-care (01) ==
LOC: ED 19:33
DX: R00.2 Palpitations (principal); F17.210 Nicotine dependence, cigarettes, uncomplicated; Z86.59 Personal history of other mental and behavioral disorders
CPT/HCPCS: 36415; 71010; 80053; 83605; 84484; 85025; 93005; 96374; 96375; 99283; J1885; J2765

== ENCOUNTER 2017-11-05 09:17 | Emergency (ER) | payer BC ==
[2017-11-05 10:55] LABS: ABS Basophils 0.1 10^3/ul (0-0.2); ABS Eosinophils 0.1 10^3/ul (0-0.6); ABS Lymphocytes 2.3 10^3/ul (1.0-4.8); ABS Monocytes 0.6 10^3/ul (0-0.8); ABS Neutrophils 5.6 10^3/ul (1.5-7.7); ABS Nucleated RBC 0 10^3/ul; Eosinophil % 0.8 % (0-6); Hematocrit 45 % (42-52); Hemoglobin 15.4 g/dl (14.0-18.0); Mean Corpuscular HGB Conc 34 g/dl (31-36); Mean Corpuscular Hemoglobin 31 pg (27-31); Mean Corpuscular Volume 91 fL (80-94); Mean Platelet Volume 7 um3 (7.4-10.4); Nucleated Red Blood Cells % 0; Platelet Count 305 10^3/ul (150-450); Red Blood Count 4.93 10^6/ul (4.0-5.4); Red Cell Distribution Width 14 % (10.5-15); White Blood Count 8.6 10^3/ul (3.5-10.8)
[2017-11-05 11:23] LABS: EGFR Non-African American 101.4 (>60)
--- NOTE | 2017-11-05 11:28 | RAD ---
HISTORY: Chest pain COMPARISONS: November 02, 2017 VIEWS: 1: frontal portable view of the chest at 11:00 AM FINDINGS: LINES AND TUBES: None. CARDIOMEDIASTINAL SILHOUETTE: The cardiomediastinal silhouette is normal for portable technique. PLEURA: The costophrenic angles are sharp. No pleural abnormalities are noted. LUNG PARENCHYMA: The lungs are clear. ABDOMEN: The upper abdomen is clear. There is no subphrenic gas. BONES AND SOFT TISSUES: No bone or soft tissue abnormalities are noted. IMPRESSION: NO ACTIVE CARDIOPULMONARY DISEASE.
[2017-11-05 11:29] VITALS: BP 135/93
--- NOTE | 2017-11-05 17:46 | ED ---
Anam Larios Angela, scribed for Charito Dao MD on 11/05/17 at 1141 . HPI Chest Pain - HPI Summary HPI Summary: This pt is a 37 y/o male presenting to [facility] c/o sudden onset of left sided chest pain since yesterday. Pt reports he has been having palpitations for the past 6 days, especially at night. He states yesterday afternoon he had sudden onset of left sided chest pain radiating to his back. Pain is aggravated with deep inspiration and sitting up. His pain is slightly alleviated when standing up. Denies ear ache, neck pain, abd pain, back pain, vomiting, diarrhea, swelling in LE, hematuria, bloody stools, rashes. Denies depression. Pt was in the ED 3 days ago for heart palpitations, and reports he had a headache. Pt is a current smoker, he states he quit on 2016 and began again a couple of weeks ago. He notes associated anxiety with palpitations. Denies drug use. Pt has decreased coffee intake. PMHx IBS and pericarditis (for which he took colchicine for 3 months). His banquet bartender is Dr. Whitehead in [place]. Pt had a holter monitor placed and was told that it was normal. - History of Current Complaint Chief Complaint: EDChestPainROMI Time Seen by Provider: 11/05/17 10:27 Hx Obtained From: Patient Onset/Duration: Started Days Ago, Still Present Timing: Lasting Days Current Severity: Moderate Pain Intensity: 6 Chest Pain Location: Left Anterior Chest Pain Radiates: Yes Chest Pain Radiates To:: Back Aggravating Factor(s): Deep Breaths, Other: - sitting down Alleviating Factor(s): Other: - standing up Associated Signs and Symptoms: Positive: Chest Pain, Anxiety, Back Pain. Negative: Abdominal Pain, Calf Pain/Swelling - Additional Pertinent History Primary Care Physician: [id number] - Allergy/Home Medications Allergies/Adverse Reactions: Allergies Allergy/AdvReac Type Severity Reaction Status Date / Time ENVIRONMENTAL Allergy Severe CONGESTION, Uncoded 11/05/17 09:32 COUGH PMH/Surg Hx/FS Hx/Imm Hx Endocrine/Hematology History: Denies: Hx Anticoagulant Therapy, Hx Diabetes, Hx Thyroid Disease Cardiovascular History: Reports: Hx Angina, Other Cardiovascular Problems/ Disorders - Hx Pericarditis Denies: Hx Congestive Heart Failure, Hx Coronary Artery Disease, Hx Deep Vein Thrombosis, Hx Hypercholesterolemia - patient says he does not know, Hx Hypertension, Hx Myocardial Infarction, Hx Pacemaker/ICD, Hx Peripheral Vascular Disease, Hx Valvular Heart Disease Respiratory History: Reports: Hx Asthma - as a child, rarely as an adult, Other Respiratory Problems/Disorders - PNA Denies: Hx Chronic Obstructive Pulmonary Disease (COPD), Hx Lung Cancer GI History: Denies: Hx Gall Bladder Disease, Hx Gastrointestinal Bleed, Hx Ulcer, Hx Urosepsis History: Denies: Hx Kidney Stones, Hx Renal Disease Sensory History: Denies: Hx Contacts or Glasses, Hx Hearing Aid Opthamlomology History: Denies: Hx Contacts or Glasses Neurological History: Denies: Hx Dementia, Hx Headaches, Hx Migraine, Hx Seizures, Hx Transient Ischemic Attacks (TIA) Psychiatric History: Denies: Hx Anxiety, Hx Depression, Hx Schizophrenia, Hx Bipolar Disorder - Surgical History Surgery Procedure, Year, and Place: appendectomy. 1997 LEFT shoulder surgery - [facility]. Sep 17 RIGHT shoulder sugery - [facility]. CARPAL TUNNEL RELEASE, double. ORAL SURGERY 03/08/2016 with ANESTHESIA - Immunization History Date of Tetanus Vaccine: utd Date of Influenza Vaccine: none Infectious Disease History: No Infectious Disease History: Denies: Hx Clostridium Difficile, Hx Hepatitis, Hx Human Immunodeficiency Virus (HIV), Hx of Known/Suspected MRSA, Hx Shingles, Hx Tuberculosis, Hx Known/ Suspected VRE, Hx Known/Suspected VRSA, History Other Infectious Disease, Traveled Outside the [place] in Last 30 Days - Family History Known Family History: Positive: Cardiac Disease - UNCLE-STENTS, AUNT/UNCLE- MITRAL VALVE PROLAPSE, BROTHER-PORPHYRIA, Hypertension, Diabetes - Social History Alcohol Use: Rare Hx Substance Use: No Substance Use Type: Reports: None Hx Tobacco Use: Yes Smoking Status (MU): Heavy Every Day Tobacco Smoker Type: Cigarettes Amount Used/How Often: 1/2 PPD Length of Time of Smoking/Using Tobacco: 20 years Have You Smoked in the Last Year: Yes Review of Systems Negative: Fever Negative: Ear Ache Positive: Palpitations, Chest Pain Negative: Abdominal Pain, Vomiting, Diarrhea, Other - bloody stools Negative: dysuria, hematuria Negative: Edema - in LE, Other - neck pain Negative: Rash Positive: Anxious All Other Systems Reviewed And Are Negative: No Physical Exam - Summary Physical Exam Summary: Appearance: Alert, conversive, nontoxic appearing Skin: Warm, dry, no mottling, no rashes, no contusions HEENT: EOMI, PERRL, moist mucous membranes Neck: No masses on the neck, supple Respiratory: Clear to auscultation, breath sounds present, no rales, no rhonchi , no wheezes Cardiovascular: RRR, pulses are symmetrical in both lower and upper extremities Abdomen: Soft, non-tender Bowel Sounds: Present Musculoskeletal: No CVA tenderness, no obvious deformity, moving all extremities in a grossly normal manner Neurological: A&Ox3, CN II-XII Intact, moving all extremities symmetrically Psychiatric: Normal affect and mood Triage Information Reviewed: Yes Vital Signs On Initial Exam: Initial Vitals Temp Pulse Resp BP Pulse Ox 99.3 F 96 16 153/97 98 11/05/17 09:32 11/05/17 09:32 11/05/17 09:32 11/05/17 09:32 11/05/17 09:32 Vital Signs Reviewed: Yes - [place] Coma Scale Coma Scale Total: 15 Diagnostics - Vital Signs Vital Signs Temp Pulse Resp BP Pulse Ox 11/05/17 09:32 99.3 F 96 16 153/97 98 - Laboratory Lab Results: Lab Results 11/05/17 11/05/17 11/05/17 Range/Units 10:46 10:46 10:46 WBC 8.6 (3.5-10.8) 10^3/ul RBC 4.93 (4.0-5.4) 10^6/ul Hgb 15.4 (14.0-18.0) g/dl Hct 45 (42-52) % MCV 91 (80-94) fL MCH 31 (27-31) pg MCHC 34 (31-36) g/dl RDW 14 (10.5-15) % Plt Count 305 (150-450) 10^3/ul MPV 7 L (7.4-10.4) um3 Neut % (Auto) 64.9 (38-83) % Lymph % (Auto) 27.0 (25-47) % [place] % (Auto) 6.6 (1-9) % Eos % (Auto) 0.8 (0-6) % Baso % (Auto) 0.7 (0-2) % Absolute Neuts (auto) 5.6 (1.5-7.7) 10^3/ul Absolute Lymphs (auto) 2.3 (1.0-4.8) 10^3/ul Absolute Monos (auto) 0.6 (0-0.8) 10^3/ul Absolute Eos (auto) 0.1 (0-0.6) 10^3/ul Absolute Basos (auto) 0.1 (0-0.2) 10^3/ul Absolute Nucleated RBC 0 10^3/ul Nucleated RBC % 0 D-Dimer, Quantitative < 200 (Less Than 230) ng/mL Sodium Pending Potassium Pending Chloride Pending Carbon Dioxide Pending Anion Gap Pending BUN Pending Creatinine Pending Est GFR ( Amer) Pending Est GFR (Non-Af Amer) Pending BUN/Creatinine Ratio Pending Glucose Pending Calcium Pending Total Bilirubin Pending AST Pending ALT Pending Alkaline Phosphatase Pending Troponin I 0.00 (<0.04) ng/mL Total Protein Pending Albumin Pending Globulin Pending Albumin/Globulin Ratio Pending Result Diagrams: 11/05/17 10:46 11/05/17 10:46 Lab Statement: Any lab studies that have been ordered have been reviewed, and results considered in the medical decision making process. - Radiology Chest XR Xray Interpretation: No Acute Changes - IMPRESSION: No active cardiopulmonary disease. Dr. Dao has reviewed this radiology report. Radiology Interpretation Completed By: Radiologist - EKG 09:43 Cardiac Rate: NL EKG Rhythm: Sinus Rhythm - 90 bpm EKG Interpretation: EKG shows pericarditis Chest Pain Course/Dx - Course Course Of Treatment: pt is a 37 y/o male, with hx of pericarditis, presenting to [facility] c/o sudden onset of left sided chest pain since yesterday. Pt reports he has been having palpitations for the past 6 days, especially at night. He states yesterday afternoon he had sudden onset of left sided chest pain radiating to his back. Pain is aggravated with deep inspiration and sitting up. His pain is slightly alleviated when standing up. Chest XR is negative. D- dimer is less than 200. Troponin is negative. EKG shows pericarditis. I spoke with the radiologist and asked them to re-read the chest XR, they report no acute findings. I discussed pt care with Dr. Macias, who reports that ideally we should speak with Dr. Whitehead but we weren't able to reach him. Dr. Macias concurs that pt's EKG shows pericarditis. He recommends starting the pt on Colchicine. I will write the pt a prescription for 5 days and will need to finish treatment under Dr. Whitehead's care. Pt will be discharged to home and is advised to follow up with his banquet bartender. - Diagnoses Provider Diagnoses: Chest pain, Palpitations - Provider Notifications Discussed Care Of Patient With: Jd Macias Time Discussed With Above Provider: 12:16 Instructed by Provider To: Other - I discussed pt care with Dr. Macias, who reports that ideally we should speak with Dr. Whitehead but we weren't able to reach him. Dr. Macias concurs that pt's EKG shows pericarditis. He recommends starting the pt on Colchicine. Discharge - Discharge Plan Condition: Stable Disposition: HOME Prescriptions: Colchicine [Mitigare] 0.6 mg PO BID #10 cap MDD 2 Patient Education Materials: Chest Pain (ED), Palpitations (ED), Acute Pericarditis (ED) Referrals: Sophie Calix MD [Primary Care Provider] - Additional Instructions: Please follow up with your primary care physician and your banquet bartender. I have written you a prescription for colchicine 0.6mg to take twice a day. I have given you 5 days worth of tablets. YOu will need to get the remainder of your pills from your banquet bartender. return if worse or any new symptoms. Please cut back on your smoking, coffee intake or any energy drinks. Take all medications as previously instructed. The documentation as recorded by the Anam sandoval Angela accurately reflects the service I personally performed and the decisions made by me, Charito Dao MD.
== END 2017-11-05 12:41 | disposition home or self-care (01) ==
LOC: ED 09:17
DX: R07.9 Chest pain, unspecified (principal); R00.2 Palpitations; I31.9 Disease of pericardium, unspecified; F17.210 Nicotine dependence, cigarettes, uncomplicated
CPT/HCPCS: 36415; 71045; 80053; 83605; 84484; 85025; 85379; 93005; 99282

== ENCOUNTER 2017-11-07 19:34 | Emergency (ER) | payer BC ==
[2017-11-07] MEDS ORDERED: Morphine INJ* 4 MG/ML 1 ML CARPUJECT IV ONE (21:05)
[2017-11-07] MEDS ORDERED: NS 0.9% 1000 ML* 1,000 ML IV ONE (21:05)
[2017-11-07] MEDS ORDERED: Ondansetron INJ* 2 MG/ML VIAL IV ONE (21:05)
[2017-11-07] MEDS ORDERED: Ketorolac INJ* 60 MG/2 ML VIAL IV PUSH ONE (21:18)
[2017-11-07 21:42] LABS: ABS Basophils 0.1 10^3/ul (0-0.2); ABS Eosinophils 0.2 10^3/ul (0-0.6); ABS Lymphocytes 3.8 10^3/ul (1.0-4.8); ABS Monocytes 0.8 10^3/ul (0-0.8); ABS Neutrophils 4.5 10^3/ul (1.5-7.7); ABS Nucleated RBC 0 10^3/ul; Eosinophil % 1.9 % (0-6); Hematocrit 44 % (42-52); Hemoglobin 14.9 g/dl (14.0-18.0); Lymphocyte % 40.9 % (25-47); Mean Corpuscular HGB Conc 34 g/dl (31-36); Mean Corpuscular Hemoglobin 31 pg (27-31); Mean Corpuscular Volume 91 fL (80-94); Mean Platelet Volume 7 um3 (7.4-10.4); Nucleated Red Blood Cells % 0; Platelet Count 303 10^3/ul (150-450); Red Cell Distribution Width 13 % (10.5-15); White Blood Count 9.4 10^3/ul (3.5-10.8)
--- NOTE | 2017-11-07 21:48 | RAD ---
Indication: Chest and RIGHT arm pain. Pericarditis in November 2016. Comparison: November 05, 2017 Technique: Upright AP 2123 hours Report: Clear lungs and pleural spaces. Negative for pneumothorax. The heart, pulmonary vasculature, and mediastinal contours are unremarkable. Unremarkable osseous structures and soft tissue contours. IMPRESSION: No evidence for acute intrathoracic disease.
[2017-11-07 21:51] LABS: INR 0.84 (0.77-1.02)
[2017-11-07 22:02] LABS: EGFR Non-African American 110.4 (>60)
[2017-11-07 23:18] VITALS: BP 131/70
--- NOTE | 2017-11-09 00:43 | ED ---
Anam Larios Angela, scribed for Clement Cevallos MD on 11/07/17 at 2048 . HPI Chest Pain - HPI Summary HPI Summary: This pt is a 37 y/o male presenting to [facility] c/o chest pain x2 days. Pt reports he was seen in the ED 2 days ago, was diagnosed with pericarditis and was prescribed Colchicine 0.6 mg BID. 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 Pt had 2 months of Colchicine after first diagnosis in January. He reports today his chest pain was the worse, radiating to his left shoulder and left axilla. He describes tightness under his left axilla. His pain is alleviated when sitting up. He notes pleuritic chest pain, fast heart rate, and some SOB. Denies fever. Pt saw Dr. Liz a couple of years ago and had a stress test, that was normal. He also had a holter monitor for 24 hours that showed lower HR of 57 bpm and highest HR of 147 bpm. Pt has never had an echocardiogram. He has never taken steroids for his chest pain. He called Dr. Macias to set up an appointment on 11/05/17 and is now scheduled to see Dr. Liz on 11/11/17 at 2:00 PM. Pt was last tested for TB 4 years ago. - History of Current Complaint Chief Complaint: EDChestPainROMI Time Seen by Provider: 11/07/17 20:44 Hx Obtained From: Patient Onset/Duration: Started Days Ago, Still Present Timing: Constant, Lasting Days Current Severity: Severe Pain Intensity: 8 Pain Scale Used: 0-10 Numeric Chest Pain Location: Mid Sternal Chest Pain Radiates: Yes Chest Pain Radiates To:: Arm - left, Other - left axilla Aggravating Factor(s): Nothing Alleviating Factor(s): Nothing Associated Signs and Symptoms: Positive: Chest Pain, Shortness of Breath, Palpitations. Negative: Fever - Additional Pertinent History Primary Care Physician: [id number] - Allergy/Home Medications Allergies/Adverse Reactions: Allergies Allergy/AdvReac Type Severity Reaction Status Date / Time ENVIRONMENTAL Allergy Severe CONGESTION, Uncoded 11/07/17 19:47 COUGH PMH/Surg Hx/FS Hx/Imm Hx Endocrine/Hematology History: Denies: Hx Anticoagulant Therapy, Hx Diabetes, Hx Thyroid Disease Cardiovascular History: Reports: Hx Angina, Other Cardiovascular Problems/ Disorders - Hx Pericarditis Denies: Hx Congestive Heart Failure, Hx Coronary Artery Disease, Hx Deep Vein Thrombosis, Hx Hypercholesterolemia - patient says he does not know, Hx Hypertension, Hx Myocardial Infarction, Hx Pacemaker/ICD, Hx Peripheral Vascular Disease, Hx Valvular Heart Disease Respiratory History: Reports: Hx Asthma - as a child, rarely as an adult, Other Respiratory Problems/Disorders - PNA Denies: Hx Chronic Obstructive Pulmonary Disease (COPD), Hx Lung Cancer GI History: Denies: Hx Gall Bladder Disease, Hx Gastrointestinal Bleed, Hx Ulcer, Hx Urosepsis History: Denies: Hx Kidney Stones, Hx Renal Disease Sensory History: Denies: Hx Contacts or Glasses, Hx Hearing Aid Opthamlomology History: Denies: Hx Contacts or Glasses Neurological History: Denies: Hx Dementia, Hx Headaches, Hx Migraine, Hx Seizures, Hx Transient Ischemic Attacks (TIA) Psychiatric History: Denies: Hx Anxiety, Hx Depression, Hx Schizophrenia, Hx Bipolar Disorder - Surgical History Surgery Procedure, Year, and Place: appendectomy. 1997 LEFT shoulder surgery - [facility]. Sep 17 RIGHT shoulder sugery - [facility]. CARPAL TUNNEL RELEASE, double. ORAL SURGERY 03/08/2016 with ANESTHESIA - Immunization History Date of Tetanus Vaccine: utd Date of Influenza Vaccine: none Infectious Disease History: No Infectious Disease History: Denies: Hx Clostridium Difficile, Hx Hepatitis, Hx Human Immunodeficiency Virus (HIV), Hx of Known/Suspected MRSA, Hx Shingles, Hx Tuberculosis, Hx Known/ Suspected VRE, Hx Known/Suspected VRSA, History Other Infectious Disease, Traveled Outside the [place] in Last 30 Days - Family History Known Family History: Positive: Cardiac Disease - UNCLE-STENTS, AUNT/UNCLE- MITRAL VALVE PROLAPSE, BROTHER-PORPHYRIA, Hypertension, Diabetes - Social History Alcohol Use: None Hx Substance Use: No Substance Use Type: Reports: None Hx Tobacco Use: Yes Smoking Status (MU): Heavy Every Day Tobacco Smoker Type: Cigarettes Amount Used/How Often: 1/2 PPD Length of Time of Smoking/Using Tobacco: 20 years Have You Smoked in the Last Year: Yes Review of Systems Negative: Fever Eyes: Negative Positive: Palpitations, Chest Pain Positive: Shortness Of Breath Gastrointestinal: Negative Genitourinary: Negative Skin: Negative Neurological: Negative All Other Systems Reviewed And Are Negative: Yes Physical Exam - Summary Physical Exam Summary: VITAL SIGNS: Reviewed. GENERAL: Patient is a well-developed and nourished male who is lying comfortable in the stretcher. Patient is not in any acute respiratory distress. HEAD AND FACE: No signs of trauma. No ecchymosis, hematomas or skull depressions. No sinus tenderness. EYES: PERRLA, EOMI x 2, No injected conjunctiva, no nystagmus. EARS: Hearing grossly intact. Ear canals and tympanic membranes are within normal limits. MOUTH: Oropharynx within normal limits. NECK: Supple, trachea is midline, no adenopathy, no JVD, no carotid bruit, no c- spine tenderness, neck with full ROM. CHEST: Symmetric, no tenderness at palpation LUNGS: Clear to auscultation bilaterally. No wheezing or crackles. CVS: Regular rate and rhythm, S1 and S2 present, no murmurs or gallops appreciated. ABDOMEN: Soft, non-tender. No signs of distention. No rebound no guarding, and no masses palpated. Bowel sounds are normal. EXTREMITIES: FROM in all major joints, no edema, no cyanosis or clubbing. NEURO: Alert and oriented x 3. No acute neurological deficits. Speech is normal and follows commands. SKIN: Dry and warm Triage Information Reviewed: Yes Vital Signs On Initial Exam: Initial Vitals Temp Pulse Resp BP Pulse Ox 98.5 F 84 16 132/91 97 11/07/17 19:40 11/07/17 19:40 11/07/17 19:40 11/07/17 19:40 11/07/17 19:40 Vital Signs Reviewed: Yes - Falguni Coma Scale Coma Scale Total: 15 Diagnostics - Vital Signs Vital Signs Temp Pulse Resp BP Pulse Ox 11/07/17 19:40 98.5 F 84 16 132/91 97 - Laboratory Lab Results: Lab Results 11/07/17 11/07/17 11/07/17 Range/Units 21:28 21:28 21:28 WBC 9.4 (3.5-10.8) 10^3/ul RBC 4.80 (4.0-5.4) 10^6/ul Hgb 14.9 (14.0-18.0) g/dl Hct 44 (42-52) % MCV 91 (80-94) fL MCH 31 (27-31) pg MCHC 34 (31-36) g/dl RDW 13 (10.5-15) % Plt Count 303 (150-450) 10^3/ul MPV 7 L (7.4-10.4) um3 Neut % (Auto) 47.8 (38-83) % Lymph % (Auto) 40.9 (25-47) % [place] % (Auto) 8.6 (1-9) % Eos % (Auto) 1.9 (0-6) % Baso % (Auto) 0.8 (0-2) % Absolute Neuts (auto) 4.5 (1.5-7.7) 10^3/ul Absolute Lymphs (auto) 3.8 (1.0-4.8) 10^3/ul Absolute Monos (auto) 0.8 (0-0.8) 10^3/ul Absolute Eos (auto) 0.2 (0-0.6) 10^3/ul Absolute Basos (auto) 0.1 (0-0.2) 10^3/ul Absolute Nucleated RBC 0 10^3/ul Nucleated RBC % 0 ESR 10 (0-14) mm/Hr INR (Anticoag Therapy) 0.84 (0.77-1.02) APTT 30.2 (26.0-36.3) seconds D-Dimer, Quantitative < 200 (Less Than 230) ng/mL Sodium 135 (133-145) mmol/L Potassium 3.9 (3.5-5.0) mmol/L Chloride 104 (101-111) mmol/L Carbon Dioxide 24 (22-32) mmol/L Anion Gap 7 (2-11) mmol/L BUN 18 (6-24) mg/dL Creatinine 0.79 (0.67-1.17) mg/dL Est GFR ( Amer) 141.9 (>60) Est GFR (Non-Af Amer) 110.4 (>60) BUN/Creatinine Ratio 22.8 H (8-20) Glucose 96 (70-100) mg/dL Calcium 8.9 (8.6-10.3) mg/dL Total Bilirubin 0.50 (0.2-1.0) mg/dL AST 16 (13-39) U/L ALT 15 (7-52) U/L Alkaline Phosphatase 83 (34-104) U/L Total Creatine Kinase 113 (10-223) U/L Troponin I 0.00 (<0.04) ng/mL C-Reactive Protein 2.86 (< 5.00) mg/L Total Protein 7.2 (6.4-8.9) g/dL Albumin 4.1 (3.2-5.2) g/dL Globulin 3.1 (2-4) g/dL Albumin/Globulin Ratio 1.3 (1-3) Result Diagrams: 11/07/17 21:28 11/07/17 21:28 Lab Statement: Any lab studies that have been ordered have been reviewed, and results considered in the medical decision making process. - Radiology Chest XR Xray Interpretation: No Acute Changes - IMPRESSION: No evidence for acute intrathoracic disease. Dr. Cevallos has reviewed this radiology report. Radiology Interpretation Completed By: Radiologist - EKG 19:56 Cardiac Rate: NL EKG Rhythm: Sinus Rhythm - at 84 bpm EKG Interpretation: Normal axis. Normal interval. Has J-point elevation more than ST elevation Re-Evaluation - Re-Evaluation First Eval Re-Evaluation Time: 22:22 Comment: I reviewed chest XR and lab results with the pt. Chest Pain Course/Dx - Course Course Of Treatment: This pt is a 37 y/o male, with hx of pericarditis currently on Colchicine, presenting to [facility] c/o chest pain x2 days. He reports today his chest pain was the worse, radiating to his left shoulder and left axilla. He describes tightness under his left axilla. I discussed pt care with Dr. Liz, process equipment operator. He reports he doesn't know the pt well and that the pt has an upcoming appointment with Dr. Macias. Dr. Liz notes pt's EKG has been the same all along since pt started having these symptoms in January 2017. He states EKG shows more early repolarization than pericarditis. He recommends the pt to take motrin in addition to Colchicine. If labs are within normal limits, Dr. Liz recommends for the pt to be discharged home and keep his appointment on Saturday. Chest XR is negative. I discussed the lab and chest XR results with the pt. As previously discussed with Dr. Liz, since all lab results are within normal limits, pt will be discharged home. Pt is instructed to keep his appointment on Saturday. Pt understands and agrees with discharge instructions. - Diagnoses Provider Diagnoses: Chest pain - Provider Notifications Discussed Care Of Patient With: Yaron Liz Time Discussed With Above Provider: 21:12 Instructed by Provider To: Other - I discussed pt care with Dr. Liz, process equipment operator. He reports he doesn't know the pt well and pt has an upcoming appointment with Dr. Macias. Dr. Liz notes pt's EKG has been the same all along since he started having these symptoms in January 2017. He states it shows more early repolarization than pericarditis. He recommends the pt to take motrin in addition to Colchicine. If labs are within normal limits, Dr. Liz recommends for the pt to be discharged home and keep his appointment on Saturday. Discharge - Discharge Plan Condition: Stable Disposition: HOME Prescriptions: Ibuprofen TAB* [Motrin TAB* 800 MG] 800 mg PO TID #30 tab oxyCODONE/Acetamin 5/325 MG* [Percocet 5/325 TAB*] 1 tab PO Q6H PRN #14 tab MDD 4 PRN Reason: Pain Patient Education Materials: Chest Pain (ED) Referrals: Sophie Calix MD [Primary Care Provider] - Additional Instructions: Go to your appointment on 11/11/17, as scheduled to see your process equipment operator. Please follow up with your primary care provider. RETURN TO EMERGENCY DEPARTMENT FOR ANY NEW OR WORSENING SYMPTOMS. The documentation as recorded by the Anam sandoval Angela accurately reflects the service I personally performed and the decisions made by me, Clement Cevallos MD.
== END 2017-11-07 23:24 | disposition home or self-care (01) ==
LOC: ED 19:34
DX: R07.9 Chest pain, unspecified (principal); R06.02 Shortness of breath; R00.2 Palpitations; F17.210 Nicotine dependence, cigarettes, uncomplicated
CPT/HCPCS: 36415; 71045; 80053; 82550; 84484; 85025; 85379; 85610; 85652; 85730; 86140; 93005; 96374; 96375; 99283; J1885; J2270; J2405

== ENCOUNTER 2018-01-13 18:16 | Emergency (ER) | payer BC ==
[2018-01-13 18:25] VITALS: BP 132/78
--- NOTE | 2018-01-13 18:37 | UC ---
Dental HPI - HPI Summary HPI Summary: 37 y/o male presents to the urgent care c/o dental pain on the left upper and lower jaw since Saturday01/10/2018. Pt reports he has a fracture molar in the lower left jaw and multiple caries in the left upper jaw. Pt hasn't been able to find a Dentist who covers his insurance. pain is 9/10 constant and sharp. Mild swelling in the upper jaw. He has been taking Ibuprofen PO to alleviate symptoms. Pt denies fever, SOB, PALACIOS, chest pain, abdominal pain, N/V/D, trismus. - History of Current Complaint Hx Obtained From: Patient Onset/Duration: Gradual Onset, Lasting Days - 4 days, Still Present, Worse Since - yesterday Severity: Severe Pain Intensity: 9 Pain Scale Used: 0-10 Numeric Aggravating Factor(s): Chewing Alleviating Factor(s): Topical Meds <Tala Powers - Last Filed: 01/13/18 19:07> <Chrissy Toribio - Last Filed: 01/13/18 19:21> - History of Current Complaint Chief Complaint: UCDentalProblem Stated Complaint: DENTAL PAIN Time Seen by Provider: 01/13/18 18:36 - Allergies/Home Medications Allergies/Adverse Reactions: Allergies Allergy/AdvReac Type Severity Reaction Status Date / Time ENVIRONMENTAL Allergy Severe CONGESTION, Uncoded 11/07/17 19:47 COUGH PMH/Surg Hx/FS Hx/Imm Hx Previously Healthy: Yes Other Cardiovascular History: Pericarditis 3 years ago Other History Of: Negative For: HIV, Hepatitis B, Hepatitis C, Anticoagulant Therapy - Surgical History Surgical History: Yes Surgery Procedure, Year, and Place: appendectomy. 1997 LEFT shoulder surgery - TORN [facility]. Sep 17 RIGHT shoulder sugery - TORN ROTATOR [facility]FF. CARPAL TUNNEL RELEASE, double. ORAL SURGERY 03/08/2016 with ANESTHESIA - Family History Known Family History: Positive: None, Cardiac Disease - UNCLE-STENTS, AUNT/UNCLE -MITRAL VALVE PROLAPSE, BROTHER-PORPHYRIA, Hypertension, Diabetes - Social History Occupation: Employed Full-time Lives: With Family Alcohol Use: None Substance Use Type: None Smoking Status (MU): Heavy Every Day Tobacco Smoker Type: Cigarettes Amount Used/How Often: 1/2 PPD Length of Time of Smoking/Using Tobacco: 20 years Have You Smoked in the Last Year: Yes Household Exposure Type: Cigarettes - Immunization History Most Recent Influenza Vaccination: NEVER Most Recent Tetanus Shot: within 5 years <Tala Powers - Last Filed: 01/13/18 19:07> Review of Systems Constitutional: Negative Skin: Negative Eyes: Negative ENT: Dental Pain - left upper and lower jaw Respiratory: Negative Cardiovascular: Negative Gastrointestinal: Negative Genitourinary: Negative Motor: Negative Neurovascular: Negative Musculoskeletal: Negative Neurological: Headache Psychological: Negative Is Patient Immunocompromised?: No All Other Systems Reviewed And Are Negative: Yes <Tala Powers - Last Filed: 01/13/18 19:07> Physical Exam - Summary Physical Exam Summary: Vital Signs Reviewed: Yes General: well developed. well nourished male sitting in the examining table w/o any apparent distress Eyes: Positive: Conjunctiva Clear - PERRLA, EOMI, fundi grossly normal ENT: Positive: Normal ENT inspection, Hearing grossly normal, Pharyngeal erythema, TMs normal, Uvula midline. Negative: Tonsillar swelling, Tonsillar exudate, Trismus Dental: Positive: Percussion Tenderness @ - molar 28, 3,4, Gross Decay/Caries @ - molar 28 w/ fractured molar, Abscess @ - molar 4, Cervical Lymphadenopathy - B /L anterior, Other: - left side of buccal mucosa with 2 aphthous ulcers tender to palpation Neck: Positive: Supple, Nontender Respiratory: Positive: Chest non-tender, Lungs clear, Normal breath sounds, No respiratory distress Cardiovascular: Positive: RRR, No Murmur, Pulses Normal, Brisk Capillary Refill Abdomen Description: Positive: Nontender, No Organomegaly, Soft. Negative: CVA Tenderness (R), CVA Tenderness (L) Bowel Sounds: Positive: Present Musculoskeletal: Positive: Strength Intact, ROM Intact, No Edema Neurological Exam: Normal Psychological Exam: Normal Skin Exam: Normal Triage Information Reviewed: Yes Vital Signs: Initial Vital Signs Temp 99.1 F 01/13/18 18:19 Pulse 103 01/13/18 18:19 Resp 20 01/13/18 18:19 BP 132/78 01/13/18 18:19 Pulse Ox 98 01/13/18 18:19 <Tala Powers - Last Filed: 01/13/18 19:07> Vital Signs: Initial Vital Signs Temp 99.1 F 01/13/18 18:19 Pulse 103 01/13/18 18:19 Resp 20 01/13/18 18:19 BP 132/78 01/13/18 18:19 Pulse Ox 98 01/13/18 18:19 <Chrissy Toribio - Last Filed: 01/13/18 19:21> Dental Complaint Course/Dx - Course Course Of Treatment: 37 y/o male presents to the urgent care c/o dental pain on the left upper and lower jaw since Saturday01/10/2018. Pt reports he has a fracture molar in the lower left jaw and multiple caries in the left upper jaw. Pt hasn't been able to find a Dentist who covers his insurance. pain is 9/10 constant and sharp. Mild swelling in the upper jaw. He has been taking Ibuprofen PO to alleviate symptoms. Pt denies fever, SOB, PALACIOS, chest pain, abdominal pain, N/V/D, trismus.Hx obtained. Pt with mild dental abscess on molar #4, fracture molar #28 and multiple careis on examination. Pt given viscous Lidocaine and Toradol IM inj at the clinic to alleviate symptoms. IM inj given by nurse. Pt tolerated well IM inj. Pt Rx Clindamycin PO and Naproxen PO for pain. Pt strongly advised to f/u with Dentist as soon as possible further evaluation and treatment. Pt understood and agreed with plan of care. Left the clinic ambulating. - Differential Dx/Diagnosis Differential Diagnosis/Dx: Dental Abscess, Dental Caries, Fractured Tooth, Odontogenic Pain Provider Diagnoses: 1- Dental abscess molar #4. 2-Mutiple caries. 3-Molar fractured #28 <Tala Powers - Last Filed: 01/13/18 19:07> Discharge <Tala Powers - Last Filed: 01/13/18 19:07> <Chrissy Toribio - Last Filed: 01/13/18 19:21> - Discharge Plan Condition: Stable Disposition: HOME Prescriptions: Clindamycin Cap(NF) [Clindamycin Cap 300 mg Cap(NF)] 300 mg PO Q6H #28 cap Naproxen Sodium [Naproxen Sodium 500 MG TAB] 500 mg PO Q8HR PRN #30 tab PRN Reason: Pain Patient Education Materials: Dental Abscess (ED), Toothache (ED) Referrals: Sophie Calix MD [Primary Care Provider] - 3 Days Additional Instructions: 1-Please take full course of antibiotic to avoid resistance. 2- Take Naproxen PO starting tomorrow as instructed after meals to alleviate pain and swelling. 3- F/u with your Dentist or Dental List provided as soon as possible for further treatment. 4- If symptoms do not improve f/u with your PCP 3 days for further evaluation and treatment Attestation Statement User Type: Provider - I was available for consult. This patient was seen by the advanced practice provider. The patient was not presented to, seen by, or examined by me.-Robb <Chrissy Toribio - Last Filed: 01/13/18 19:21>
[2018-01-13] MEDS ORDERED: Ketorolac INJ* 30 MG/ML 1 ML VIAL IM ONE (18:51)
[2018-01-13] MEDS ORDERED: Lidocaine 2% VISCOUS* 15 ML UDC SWISH SPIT ONE (18:52)
== END 2018-01-13 19:06 | disposition home or self-care (01) ==
LOC: UCEAST 18:16
DX: K04.7 Periapical abscess without sinus (principal); K03.81 Cracked tooth; K02.9 Dental caries, unspecified; F17.210 Nicotine dependence, cigarettes, uncomplicated
CPT/HCPCS: 99212; G0463; J1885

== ENCOUNTER 2018-01-19 04:01 | Emergency (ER) | payer BC ==
[2018-01-19] MEDS ORDERED: Ibuprofen TAB* 400 MG PO ONE (05:01)
[2018-01-19] MEDS ORDERED: oxyCODONE/Acetamin 5/325 MG* TAB PO ONE (05:02)
[2018-01-19] MEDS ORDERED: Lidocaine/Epineph/Tetraca SOL* (LET solution) 4 ML BTL TOPICAL ONE (05:30)
[2018-01-19] MEDS ORDERED: Lidocaine 1% INJ* 10 MG/ML 30 ML SDV INJ ONE (06:30)
[2018-01-19 07:46] VITALS: BP 114/72
--- NOTE | 2018-01-19 08:46 | RAD ---
INDICATION: Pain and swelling of the left fourth toe COMPARISON: None. TECHNIQUE: 2 views of the left foot were obtained. FINDINGS: The adequately corticated bones are properly aligned. Joint spaces appear maintained. No fracture, dislocation or focal bony abnormality is seen. IMPRESSION: Normal radiograph of the left foot. If the patient's symptoms persist, follow-up imaging is recommended.
--- NOTE | 2018-01-19 12:44 | ED ---
Berenice Larios Emily, scribed for Johnathan Nance MD on 01/19/18 at 0506 . Lower Extremity - HPI Summary HPI Summary: This patient is a 37 year old M presenting to [facility] with a chief complaint of painful fourth toe on R foot that began yesterday morning. The patient rates the pain 10/10 in severity. Symptoms aggravated by nothing. Symptoms alleviated by nothing. Patient reports swelling at the toe. Pt denies any injury to toe. Pt states he noticed increaesed redness and swelling to his toe after working, however symptoms gradually became worse. Pt states no relief with OTC pain medication. - History of Current Complaint Chief Complaint: EDExtremityLower Stated Complaint: LEFT TOE INJURY Time Seen by Provider: 01/19/18 04:56 Hx Obtained From: Patient Onset/Duration: Days Severity Initially: Severe Severity Currently: Severe Pain Intensity: 10 Pain Scale Used: 0-10 Numeric Associated Signs And Symptoms: Positive: Swelling Aggravating Factor(s): Nothing Alleviating Factor(s): Nothing - Allergies/Home Medications Allergies/Adverse Reactions: Allergies Allergy/AdvReac Type Severity Reaction Status Date / Time ENVIRONMENTAL Allergy Severe CONGESTION, Uncoded 01/19/18 04:06 COUGH PMH/Surg Hx/FS Hx/Imm Hx Previously Healthy: No Endocrine/Hematology History: Denies: Hx Anticoagulant Therapy, Hx Diabetes, Hx Thyroid Disease Cardiovascular History: Reports: Hx Angina, Other Cardiovascular Problems/ Disorders - Hx Pericarditis Denies: Hx Congestive Heart Failure, Hx Coronary Artery Disease, Hx Deep Vein Thrombosis, Hx Hypercholesterolemia - patient says he does not know, Hx Hypertension, Hx Myocardial Infarction, Hx Pacemaker/ICD, Hx Peripheral Vascular Disease, Hx Valvular Heart Disease Respiratory History: Reports: Hx Asthma - as a child, rarely as an adult, Other Respiratory Problems/Disorders - PNA Denies: Hx Chronic Obstructive Pulmonary Disease (COPD), Hx Lung Cancer GI History: Denies: Hx Gall Bladder Disease, Hx Gastrointestinal Bleed, Hx Ulcer, Hx Urosepsis History: Denies: Hx Kidney Stones, Hx Renal Disease Sensory History: Denies: Hx Contacts or Glasses, Hx Hearing Aid Opthamlomology History: Denies: Hx Contacts or Glasses Neurological History: Denies: Hx Dementia, Hx Headaches, Hx Migraine, Hx Seizures, Hx Transient Ischemic Attacks (TIA) Psychiatric History: Denies: Hx Anxiety, Hx Depression, Hx Schizophrenia, Hx Bipolar Disorder - Surgical History Surgery Procedure, Year, and Place: appendectomy. 1997 LEFT shoulder surgery - TORN ROTATOR CUFF. Sep 17 RIGHT shoulder sugery - TORN ROTATOR CUFF. CARPAL TUNNEL RELEASE, double. ORAL SURGERY 03/08/2016 with ANESTHESIA - Immunization History Date of Tetanus Vaccine: utd Date of Influenza Vaccine: none Immunizations Up to Date: Yes Infectious Disease History: No Infectious Disease History: Denies: Hx Clostridium Difficile, Hx Hepatitis, Hx Human Immunodeficiency Virus (HIV), Hx of Known/Suspected MRSA, Hx Shingles, Hx Tuberculosis, Hx Known/ Suspected VRE, Hx Known/Suspected VRSA, History Other Infectious Disease, Traveled Outside the [place] in Last 30 Days - Family History Known Family History: Positive: Cardiac Disease - UNCLE-STENTS, AUNT/UNCLE- MITRAL VALVE PROLAPSE, BROTHER-PORPHYRIA, Hypertension, Diabetes - Social History Occupation: Employed Full-time Lives: Alone Alcohol Use: None Hx Substance Use: No Substance Use Type: Reports: None Hx Tobacco Use: Yes Smoking Status (MU): Heavy Every Day Tobacco Smoker Type: Cigarettes Amount Used/How Often: 1/2 PPD Length of Time of Smoking/Using Tobacco: 20 years Have You Smoked in the Last Year: Yes Review of Systems Negative: Fever Positive: Edema, Other - Positive R fourth toe pain All Other Systems Reviewed And Are Negative: Yes Physical Exam - Summary Physical Exam Summary: Appearance: Well-appearing, no distress, Well-nourished Skin: Warm, color reflects adequate perfusion, Respiratory: Lungs clear, Normal breath sounds, no respiratory distress Cardio: RRR, No murmur, pulses normal, brisk capillary refill, Cap refill is less than 2 seconds in fourth toe Musculoskeletal: Strength Intact/ ROM intact. No calf tenderness. right fourth toe moderate swelling. Tender to palpation severe. no warmth, erythema, no fluctuance; no deformity Neuro: Alert, muscle tone normal, sensory/motor intact Psychological: Normal Triage Information Reviewed: Yes Vital Signs On Initial Exam: Initial Vitals Temp Pulse Resp BP Pulse Ox 98.1 F 82 16 123/77 98 01/19/18 04:03 01/19/18 04:03 01/19/18 04:03 01/19/18 04:03 01/19/18 04:03 Vital Signs Reviewed: Yes Procedures - Incision and Drainage Anesthesia: Digital Instrument(s): Needle Packing: Gauze Diagnostics - Vital Signs Vital Signs Temp Pulse Resp BP Pulse Ox 01/19/18 04:03 98.1 F 82 16 123/77 98 - Laboratory Lab Statement: Any lab studies that have been ordered have been reviewed, and results considered in the medical decision making process. Lower Extremity Course/Dx - Course Course Of Treatment: Attempted I&D with 18g needle, with no pus return. Unclear etiology of pt toe swelling and pain at this time. Likely cellulitis/abscess. Pt pain improved with oral analgesia and digital block. Assessment/Plan: Plan to treat with oral abx, warm water soaks, campbell control, and Ortho f/u if symptoms not improved in 2-3 days. - Diagnoses Differential Diagnosis/HQI/PQRI: Positive: Cellulitis, Compartment Syndrome, Contusion, Fracture (Closed), Gout, Sprain, Strain, Tendonitis Provider Diagnoses: Toe pain, left Discharge - Discharge Plan Condition: Improved Disposition: HOME Prescriptions: Cephalexin CAP* [Keflex CAP*] 500 mg PO QID 5 Days #20 cap Hydrocodone/Acetaminophen [Hydrocodone-Acetamin 10-325 mg] 1 each PO Q4HR PRN # 12 tablet MDD 6 tablets PRN Reason: Pain Ibuprofen TAB* [Motrin TAB* 800 MG] 800 mg PO Q6H PRN 5 Days #20 tab PRN Reason: Pain Patient Education Materials: Abscess (ED), Swollen Joint (ED) Referrals: Sophie Calix MD [Primary Care Provider] - Pb tSeinberg MD [Medical Doctor] - 3 Days The documentation as recorded by the Berenice sandoval Emily accurately reflects the service I personally performed and the decisions made by , Johnathan Nance MD.
== END 2018-01-19 07:43 | disposition home or self-care (01) ==
LOC: ED 04:01
DX: M79.675 Pain in left toe(s) (principal); F17.210 Nicotine dependence, cigarettes, uncomplicated
CPT/HCPCS: 10060; 99283; A9270-GY

== ENCOUNTER 2019-02-21 19:02 | Emergency (ER) | payer BC ==
[2019-02-21 19:25] VITALS: BP 128/71
--- NOTE | 2019-02-21 19:43 | UC ---
General HPI - HPI Summary HPI Summary: stub R 5th toe today. c/o 5th toe and lateral foot pain. states toe went out to the side - History of Current Complaint Chief Complaint: UCLowerExtremity Stated Complaint: RIGHT FOOT/FIFTH TOE INJURY Time Seen by Provider: 02/21/19 19:28 Hx Obtained From: Patient Onset/Duration: Sudden Onset Timing: Constant Pain Intensity: 7 Aggravating: walking Associated Signs & Symptoms: Negative: Weakness - Allergy/Home Medications Allergies/Adverse Reactions: Allergies Allergy/AdvReac Type Severity Reaction Status Date / Time No Known Allergies Allergy Verified 02/21/19 19:25 PMH/Surg Hx/FS Hx/Imm Hx - Additional Past Medical History Additional PMH: IBS Respiratory History: Asthma Other History Of: Negative For: HIV, Hepatitis B, Hepatitis C, Anticoagulant Therapy - Surgical History Surgical History: Yes Surgery Procedure, Year, and Place: appendectomy , carpel tunnel. 1997 LEFT shoulder surgery - TORN ROTATOR CUFF. Sep 17 RIGHT shoulder sugery - TORN ROTATOR CUFF. CARPAL TUNNEL RELEASE, double. ORAL SURGERY 03/08/2016 with ANESTHESIA - Family History Known Family History: Positive: Cardiac Disease - UNCLE-STENTS, AUNT/UNCLE- MITRAL VALVE PROLAPSE, BROTHER-PORPHYRIA, Hypertension, Diabetes - Social History Alcohol Use: None Substance Use Type: None Smoking Status (MU): Heavy Every Day Tobacco Smoker Type: Cigarettes Amount Used/How Often: 1 PPD Length of Time of Smoking/Using Tobacco: since age 17 Have You Smoked in the Last Year: Yes Household Exposure Type: Cigarettes - Immunization History Most Recent Influenza Vaccination: NEVER Most Recent Tetanus Shot: within 5 years Review of Systems All Other Systems Reviewed And Are Negative: Yes Musculoskeletal: Positive: Other: - r foot pain Physical Exam Triage Information Reviewed: Yes Appearance: Well-Appearing Vital Signs: Initial Vital Signs Temp 98 F 02/21/19 19:18 Pulse 92 02/21/19 19:18 Resp 16 02/21/19 19:18 BP 128/71 02/21/19 19:18 Pulse Ox 98 02/21/19 19:18 Vital Signs Reviewed: Yes Eyes: Positive: Conjunctiva Clear Respiratory: Positive: No respiratory distress Cardiovascular: Positive: RRR Musculoskeletal: Positive: Other: - R foot: 5th toe and laetral foot swelling and tenderness. limited rom R 5th toe. Foot has gross s/v function. achilles and ankle are non tender. Neurological: Positive: Alert Psychological: Positive: Age Appropriate Behavior Skin Exam: Normal Diagnostics - Radiology No standard instances Radiology Interpretation Completed By: ED Physician - R foot=nad Course/Dx - Course Course Of Treatment: POST XRAY= LIGAMENT AT 5TH TOE SHOWS LCL DISRUPTION. PROCEDURE: COTTON BETWEEN 4/5TH TOES THEN TOES KANCHAN TAPED. - Diagnoses Provider Diagnosis: Sprain of toe, fifth, right Discharge - Sign-Out/Discharge Documenting (check all that apply): Patient Departure All imaging exams completed and their final reports reviewed: No - Discharge Plan Condition: Stable Disposition: HOME Patient Education Materials: Sprain (ED) Referrals: Toribio Quijano MD [Medical Doctor] - As Soon As Possible Additional Instructions: kanchan tape and post op shoe until cleared. - Billing Disposition and Condition Condition: STABLE Disposition: Home - Attestation Statements Provider Attestation: I was available for consult. This patient was seen by the DEANA. The patient was not presented to, seen by, or examined by me. -Robb
--- NOTE | 2019-02-22 07:46 | UC ---
- Progress Note Progress Note: Final read of the right foot x-ray: Negative for fracture Wet read correct, no change in plan Course/Dx - Diagnoses Provider Diagnoses: Sprain of toe, fifth, right Discharge - Sign-Out/Discharge Documenting (check all that apply): Post-Discharge Follow Up All imaging exams completed and their final reports reviewed: Yes - Discharge Plan Condition: Stable Disposition: HOME Patient Education Materials: Sprain (ED) Referrals: Toribio Quijano MD [Medical Doctor] - As Soon As Possible Additional Instructions: kanchan tape and post op shoe until cleared. - Billing Disposition and Condition Condition: STABLE Disposition: Home
== END 2019-02-21 20:12 | disposition home or self-care (01) ==
LOC: UCCORT 19:02
DX: S93.504A Unspecified sprain of right lesser toe(s), initial encounter (principal); W22.8XXA Striking against or struck by other objects, initial encounter; Y92.9 Unspecified place or not applicable; J45.909 Unspecified asthma, uncomplicated; F17.210 Nicotine dependence, cigarettes, uncomplicated
CPT/HCPCS: 99212; G0463

== ENCOUNTER 2019-04-15 04:56 | Emergency (ER) | payer BC ==
[2019-04-15 05:01] VITALS: BP 137/88
[2019-04-15] MEDS ORDERED: Clindamycin CAP* 150 MG PO ONE (05:23)
[2019-04-15] MEDS ORDERED: Ketorolac INJ* 30 MG/ML 1 ML VIAL IM ONE (05:23)
[2019-04-15] MEDS ORDERED: oxyCODONE/Acetamin 5/325 MG* TAB PO ONE (05:24)
--- OUTSIDE RECORDS SUMMARY | 2019-04-15 05:25 | XMS REPORT | Continuity of Care Document ---
:1980 External Reference #:[id number] Author Name Ivett Esparza Care Team Providers Name Role Phone Sophie Calix MD Primary Care Physician Unavailable Payers Date Identification Numbers Payment Provider Subscriber Effective: 2019 Policy Number: [id number] [employer] Anali Fredi PayID: [id number] [address] [address] [place] [address] Problems Active Problems Provider Date Cellulitis of right lower limb Amara Goodson M.D. Onset: 04/10/2019 Derangement of knee Amara Goodson M.D. 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 Tobacco Use Start: Unknown End: Former Cigarette Smoker 1 Unknown 1/2 Packs Daily Cigarette Use Pack Years - 20 Smoking Status Reviewed: 04/13/19 Former Cigarette Smoker 1 1/2 Packs Daily ETOH Use Denies alcohol use Tobacco Use Start: Unknown Heavy tobacco smoker (more Quit 03/2016 than 10 cigarettes/day) Recreational Drug Use Denies Drug Use Recreational Drug Use Formerly used Marijuana regularly Exercise Type/Frequency Exercises regularly Allergies, Adverse Reactions, Alerts Description No Known Drug Allergies Medications Active Medications SIG Qnty Indications Ordering Provider Date Cephalexin 1 by mouth four 30tabs M25.561 Amara Goodson M.D. 04/10/2019 500mg times a day Tablets Hydrocodone 1-2 tabs q8 60tabs M25.561 Amara Goodson M.D. 04/10/2019 Bitartrate/Acetaminop hours as needed hen pain 5-325mg Tablets Ibuprofen by mouth three Unknown 800mg Tablets times a day as needed History Medications Metoprolol Take one tablet every 60tabs R00.0 Yaron S. 11/11/2017 - Tartrate 12 hours as needed DO RHONDA Liz 04/09/2019 25mg for palpitations. Tablets Ibuprofen 1 by mouth three Unknown - 600mg times a day as needed 04/05/2016 Tablets Hydrocodone-Acetam 1 by mouth every 4-6 Unknown - inophen hours prn. 02/09/2015 5-325mg Tablets Lorazepam 1 po daily a day as Unknown - 1mg needed 11/04/2017 Tablets Percocet 1-2 by mouth every Unknown - 5-325mg 4-6 hours as needed 01/11/2018 Tablets pain Cephalexin 4 times a day Unknown - 500mg 04/09/2019 Capsules Hydrocodone-Acetam 1 tab every 4 hours Unknown - inophen as needed 04/09/2019 10-325mg Tablets Vital Signs Date Vital Result Comment 04/13/2019 8:15am Height 65.50 inches 5'5.50" Heart Rate 76 /min BP Systolic 118 mmHg BP Diastolic 82 mmHg Respiratory Rate 18 /min Body Temperature 98.7 F Pain Level 2 04/10/2019 1:31pm Height 65.50 inches 5'5.50" Weight 175.00 lb Heart Rate 68 /min BP Systolic 122 mmHg BP Diastolic 80 mmHg Respiratory Rate 22 /min Body Temperature 99.9 F Pain Level 10 BMI (Body Mass Index) 28.7 kg/m2 01/20/2018 3:49pm Height 66 inches 5'6" Weight 173.00 lb Heart Rate 70 /min BP Systolic Standing 130 mmHg BP Diastolic Standing 60 mmHg BMI (Body Mass Index) 27.9 kg/m2 Ejection Fraction 55-60% 01/03/2018 echo 11/11/2017 2:02pm Height 66 inches 5'6" Weight 170.00 lb No shoes Heart Rate 74 /min BP Systolic Sitting 110 mmHg Lue lrg cuff BP Diastolic Sitting 80 mmHg Lue lrg cuff BP Systolic Standing 126 mmHg Lue lrg cuff BP Diastolic Standing 82 mmHg Lue lrg cuff Respiratory Rate 17 /min BMI (Body Mass Index) 27.4 kg/m2 Ejection Fraction 55-60% 01/23/2017-echo 04/06/2016 9:37am Height 66 inches 5'6" Weight 158.75 lb with shoes Heart Rate 70 /min BP Systolic Sitting 120 mmHg LA reg cuff BP Diastolic Sitting 86 mmHg LA reg cuff BP Systolic Standing 120 mmHg LA reg cuff BP Diastolic Standing 88 mmHg LA reg cuff BMI (Body Mass Index) 25.6 kg/m2 03/03/2015 3:52pm Height 66 inches 5'6" Body Temperature 98.4 F Pain Level 0 02/10/2015 8:10am Height 66 inches 5'6" Weight 156.00 lb Pain Level 2 BMI (Body Mass Index) 25.2 kg/m2 01/20/2015 8:35am Height 66 inches 5'6" Weight 156.00 lb Heart Rate 84 /min BP Systolic 132 mmHg BP Diastolic 84 mmHg BMI (Body Mass Index) 25.2 kg/m2 Procedures Date Code Description Status 12/04/2017 54702 Event Monitor/Phys Review/Interp. 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 FACC Z72.0 Tobacco use Office Visit 11/11/2017 2:20p [facility] Yaron Weinstein R07.9 Chest pain , Of Ivett Liz, DO unspecified FACC R00.0 Tachycardia, unspecified Z72.0 Tobacco use R00.2 Palpitations Office Visit 01/24/2017 [facility] I30.9 Acute 9:49a Assoc,pc Dede, 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 pericarditis, Hospitalists unspecified J45.20 Mild intermittent asthma, uncomplicated A08.4 Viral intestinal infection, unspecified Office 01/23/2017 [facility] I30.9 Acute Visit 9:49a Assoc,GRAYSON Gambino pericarditis, Hospitalists unspecified J45.20 Mild intermittent asthma, uncomplicated Office Visit 04/06/2016 10:40a [facility] Yaron Weinstein R07.9 Chest pain , Liz, DO unspecified FACC R94.31 Abnormal electrocardiogram [ECG] [EKG] F17.201 Nicotine dependence, unspecified, in remission Office Visit 03/26/2016 2:41p [facility] R07.9 Chest pain, Assoc,svitlana Toribio MD unspecified Hospitalists K58.0 Irritable bowel syndrome with diarrhea Z72.0 Tobacco use Office Visit 03/03/2015 4:00p [facility] [place] Vora 736.1 [facility] Office Visit 02/10/2015 8:00a [facility] Gallagher6.1 [facility] Office Visit 01/20/2015 8:30a [facility] Fawn Gallagher.1 [facility] Plan of Treatment Future Appointment(s):04/20/2019 3:00 pm - Amara Goodson [facility]. [facility]2019 - Amara Goodson M.D.M25.561 Pain in right kneeFollow up:Follow up:M25.461 Effusion, right kneeFollow up:1 weekL03.115 Cellulitis of right lower limbM22.2x1 Patellofemoral disorders, right knee
--- OUTSIDE RECORDS SUMMARY | 2019-04-15 05:25 | XMS REPORT | Continuity of Care Document ---
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 Z72.0 Tobacco use Office Visit 11/11/2017 2:20p [facility] Yaron Weinstein R07.9 Chest pain , Of Ivett Liz, DO unspecified FACC R00.0 Tachycardia, unspecified Z72.0 Tobacco use R00.2 Palpitations Office Visit 01/24/2017 [facility] I30.9 Acute 9:49a Assoc,pc 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, 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 pericarditis, Hospitalists unspecified J45.20 Mild intermittent asthma, uncomplicated A08.4 Viral intestinal infection, unspecified Office 01/23/2017 [facility] I30.9 Acute Visit 9:49a Assoc,pc GRAYSON Carrasquillo pericarditis, Hospitalists unspecified J45.20 Mild intermittent asthma, uncomplicated Office Visit 04/06/2016 10:40a [facility] Yaron DaleArt R07.9 Chest pain , Liz, DO unspecified FACC R94.31 Abnormal electrocardiogram [ECG] [EKG] F17.201 Nicotine dependence, unspecified, in remission Office Visit 03/26/2016 2:41p [facility] R07.9 Chest pain, Assoc,pc MD Catarino unspecified Hospitalists K58.0 Irritable bowel syndrome with diarrhea Z72.0 Tobacco use Office Visit 03/03/2015 4:00p [facility]opedic Fawn Gallagher.1 [facility] Office Visit 02/10/2015 8:00a [facility]opedic Fawn Gallagher.1 [facility] Office Visit 01/20/2015 8:30a [facility]opedic Fawn Gallagher.1 [facility] Plan of Treatment Future Appointment(s):04/13/2019 8:30 am - Am[facility] Goodson [facility]D. [facility]/10/2019 - Amara Goodson M.D.M25.561 Pain in right kneeNew Medication:Cephalexin 500 mg - 1 by mouth four times a dayHydrocodone Bitartrate /Acetaminophen 5-325 mg - 1-2 tabs q8 hours as needed painNew Xrays:Knee 3 Views RT, Ordered: 04/10/19Follow up:Follow up: friday 04/13M25.461 Effusion, right kneeL03.115 Cellulitis of right lower limbM22.2x1 Patellofemoral disorders , right knee
--- NOTE | 2019-04-15 05:30 | ED ---
Throat Pain/Nasal Congestion - HPI Summary HPI Summary: This patient is a 39 year old M presenting to [facility] with a chief complaint right upper dental pain since yesterday. The patient rates the pain 10 in severity. Symptoms aggravated by nothing. Symptoms alleviated by nothing. Patient states his teeth were sore 04/13/19 PM. This morning, patient woke up with a swollen face. Patient denies fever and previous issues with his teeth. He notes he is taking Keflex since 04/10/19 for cellulitis in his right knee. - History of Current Complaint Chief Complaint: EDDentalPain Time Seen by Provider: 04/15/19 05:18 Hx Obtained From: Patient Onset/Duration: Sudden Onset, Lasting Days - 1, Still Present Severity: Severe - 05/13 Associated Signs And Symptoms: Positive: Negative - fever - Allergies/Home Medications Allergies/Adverse Reactions: Allergies Allergy/AdvReac Type Severity Reaction Status Date / Time No Known Allergies Allergy Verified 04/15/19 05:01 PMH/Surg Hx/FS Hx/Imm Hx Previously Healthy: No Endocrine/Hematology History: Denies: Hx Anticoagulant Therapy, Hx Diabetes, Hx Thyroid Disease Cardiovascular History: Reports: Hx Angina, Other Cardiovascular Problems/ Disorders - Hx Pericarditis Denies: Hx Congestive Heart Failure, Hx Coronary Artery Disease, Hx Deep Vein Thrombosis, Hx Hypercholesterolemia - patient says he does not know, Hx Hypertension, Hx Myocardial Infarction, Hx Pacemaker/ICD, Hx Peripheral Vascular Disease, Hx Valvular Heart Disease Respiratory History: Reports: Hx Asthma - as a child, rarely as an adult, Other Respiratory Problems/Disorders - PNA Denies: Hx Chronic Obstructive Pulmonary Disease (COPD), Hx Lung Cancer GI History: Denies: Hx Gall Bladder Disease, Hx Gastrointestinal Bleed, Hx Ulcer, Hx Urosepsis History: Denies: Hx Kidney Stones, Hx Renal Disease Sensory History: Denies: Hx Contacts or Glasses, Hx Hearing Aid Opthamlomology History: Denies: Hx Contacts or Glasses Neurological History: Denies: Hx Dementia, Hx Headaches, Hx Migraine, Hx Seizures, Hx Transient Ischemic Attacks (TIA) Psychiatric History: Denies: Hx Anxiety, Hx Depression, Hx Schizophrenia, Hx Bipolar Disorder - Surgical History Surgery Procedure, Year, and Place: appendectomy , carpel tunnel. 1997 LEFT shoulder surgery - [facility]. Sep 17 RIGHT shoulder sugery - [facility]. CARPAL TUNNEL RELEASE, double. ORAL SURGERY 03/08/2016 with ANESTHESIA - Immunization History Date of Tetanus Vaccine: utd Date of Influenza Vaccine: none Infectious Disease History: No Infectious Disease History: Denies: Hx Clostridium Difficile, Hx Hepatitis, Hx Human Immunodeficiency Virus (HIV), Hx of Known/Suspected MRSA, Hx Shingles, Hx Tuberculosis, Hx Known/ Suspected VRE, Hx Known/Suspected VRSA, History Other Infectious Disease, Traveled Outside the [place] in Last 30 Days - Family History Known Family History: Positive: Cardiac Disease - UNCLE-STENTS, AUNT/UNCLE- MITRAL VALVE PROLAPSE, BROTHER-PORPHYRIA, Hypertension, Diabetes - Social History Alcohol Use: None Hx Substance Use: No Substance Use Type: Reports: None Hx Tobacco Use: Yes Smoking Status (MU): Heavy Every Day Tobacco Smoker Type: Cigarettes Amount Used/How Often: 1 PPD Length of Time of Smoking/Using Tobacco: since age 17 Have You Smoked in the Last Year: Yes Review of Systems Negative: Fever Positive: Dental Pain - right upper dental pain, Other - facial swelling All Other Systems Reviewed And Are Negative: Yes Physical Exam - Summary Physical Exam Summary: VITAL SIGNS: Reviewed. GENERAL: Patient is a well-developed and nourished MALE who is lying comfortable in the stretcher. Patient is not in any acute respiratory distress. HEAD AND FACE: Tenderness and mild swelling over right upper gum posteriorly EYES: PERRLA, EOMI x 2, No injected conjunctiva, no nystagmus. EARS: Hearing grossly intact. Ear canals and tympanic membranes are within normal limits. MOUTH: Oropharynx within normal limits. NECK: Supple, trachea is midline, no adenopathy, no JVD, no carotid bruit, no c- spine tenderness, neck with full ROM CHEST: Symmetric, no tenderness at palpation LUNGS: Clear to auscultation bilaterally. No wheezing or crackles. CVS: Regular rate and rhythm, S1 and S2 present, no murmurs or gallops appreciated. ABDOMEN: Soft, non-tender. No signs of distention. No rebound no guarding, and no masses palpated. Bowel sounds are normal. EXTREMITIES: FROM in all major joints, no edema, no cyanosis or clubbing. NEURO: Alert and oriented x 3. No acute neurological deficits. Speech is normal and follows commands. SKIN: Dry and warm Triage Information Reviewed: Yes Vital Signs On Initial Exam: Initial Vitals Temp Pulse Resp BP Pulse Ox 97.7 F 92 16 137/88 97 04/15/19 04:59 04/15/19 04:59 04/15/19 04:59 04/15/19 04:59 04/15/19 04:59 Vital Signs Reviewed: Yes Diagnostics - Vital Signs Vital Signs Temp Pulse Resp BP Pulse Ox 04/15/19 04:59 97.7 F 92 16 137/88 97 - Laboratory Lab Statement: Any lab studies that have been ordered have been reviewed, and results considered in the medical decision making process. EENT Course/Dx - Course Course Of Treatment: This patient is a 39 year old M presenting to [facility] with a chief complaint right upper dental pain and facial swelling since yesterday. He notes he is taking Keflex since 04/10/19 for cellulitis in his right knee. Physical Exam shows tenderness and mild swelling over right upper gum posterially. During the ED course, the patient was given clindamycin, ketorolac , and oxycodone. Patient will be discharged home. Patient was instructed to stop taking Keflex. Patient was prescribed clindamycin and Motrin. He was instructed to follow up with his dentist in 3 days and to return to the Emergency Department for new or worsening symptoms. Patient understands and is agreeable. - Diagnoses Provider Diagnoses: Gingivitis Discharge - Sign-Out/Discharge Documenting (check all that apply): Patient Departure - Discharge Patient Received Moderate/Deep Sedation with Procedure: No - Discharge Plan Condition: Stable Disposition: HOME Prescriptions: Clindamycin Cap(NF) [Clindamycin Cap 300 mg Cap(NF)] 300 mg PO Q6H #30 cap Ibuprofen TAB* [Motrin TAB* 800 MG] 800 mg PO Q6H PRN #30 tab PRN Reason: Pain Patient Education Materials: Gingivitis (ED) Referrals: [facility] [place] [facility] [place]Outside] - 3 Days Additional Instructions: Stop taking your Keflex. Follow up with your dentist in 3 days. Return to the Emergency Department for new or worsening symptoms. - Attestation Statements Document Initiated by Scribe: Yes Documenting Scribe: Sudha Law Provider For Whom Mildred is Documenting (Include Credential): Clement Cevallos MD Scribe Attestation: Sudha Larios, scribed for Clement Cevallos MD on 04/15/19 at 0622. Status of Scribe Document: Ready
== END 2019-04-15 05:37 | disposition home or self-care (01) ==
LOC: ED 04:56
DX: K05.10 Chronic gingivitis, plaque induced (principal); F17.210 Nicotine dependence, cigarettes, uncomplicated
CPT/HCPCS: 96372; 99282; A9270-GY; J1885

== ENCOUNTER → 2019-05-30 13:22 | Emergency (ER) | payer BC ==
[2019-05-30 13:29] VITALS: BP 151/83
--- NOTE | 2019-05-30 14:01 | ED ---
Skin Complaint - HPI Summary HPI Summary: This patient is a 39 year old M presenting to ED with a chief complaint of rash to L flank area since 05/26/19. He initially noticed a red circular rash about the size of a coffee cup. Patient was told he had a tick bite and started doxycycline 48 hours ago, but he states the rash has been growing. The patient rates the pain 6/10 in severity, achy and itching. Symptoms aggravated laying on his side. Symptoms alleviated by nothing. Patient reports pruritus and pain to the rash, PALACIOS, nausea, body aches. Patient denies fever. - History of Current Complaint Chief Complaint: EDRashSkinAbscess Time Seen by Provider: 05/30/19 13:36 Stated Complaint: TICK BITE PER PT Hx Obtained From: Patient Onset/Duration: Started Days Ago - 05/26/19, Still Present, Worse Since Timing: Constant Onset Severity: Mild Current Severity: Moderate Pain Intensity: 6 Pain Scale Used: 0-10 Numeric Skin Location: Other: - L flank Character: Pruritus, Redness Aggravating Symptom(s): Nothing Alleviating Symptom(s): Nothing Associated Signs & Symptoms: Negative - Fever, Nausea, Rash - Additional Pertinent History Primary Care Physician: [id number] - Allergy/Home Medications Allergies/Adverse Reactions: Allergies Allergy/AdvReac Type Severity Reaction Status Date / Time No Known Allergies Allergy Verified 04/15/19 05:01 PMH/Surg Hx/FS Hx/Imm Hx Endocrine/Hematology History: Denies: Hx Anticoagulant Therapy, Hx Diabetes, Hx Thyroid Disease Cardiovascular History: Reports: Hx Angina, Other Cardiovascular Problems/ Disorders - Hx Pericarditis Denies: Hx Congestive Heart Failure, Hx Coronary Artery Disease, Hx Deep Vein Thrombosis, Hx Hypercholesterolemia - patient says he does not know, Hx Hypertension, Hx Myocardial Infarction, Hx Pacemaker/ICD, Hx Peripheral Vascular Disease, Hx Valvular Heart Disease Respiratory History: Reports: Hx Asthma - as a child, rarely as an adult, Other Respiratory Problems/Disorders - PNA Denies: Hx Chronic Obstructive Pulmonary Disease (COPD), Hx Lung Cancer GI History: Denies: Hx Gall Bladder Disease, Hx Gastrointestinal Bleed, Hx Ulcer, Hx Urosepsis History: Denies: Hx Kidney Stones, Hx Renal Disease Sensory History: Denies: Hx Contacts or Glasses, Hx Hearing Aid Opthamlomology History: Denies: Hx Contacts or Glasses Neurological History: Denies: Hx Dementia, Hx Headaches, Hx Migraine, Hx Seizures, Hx Transient Ischemic Attacks (TIA) Psychiatric History: Denies: Hx Anxiety, Hx Depression, Hx Schizophrenia, Hx Bipolar Disorder - Surgical History Surgery Procedure, Year, and Place: appendectomy , carpel tunnel. 1997 LEFT shoulder surgery - [facility]. Sep 17 RIGHT shoulder sugery - TORN [facility]. CARPAL TUNNEL RELEASE, double. ORAL SURGERY 03/08/2016 with ANESTHESIA - Immunization History Date of Tetanus Vaccine: utd Date of Influenza Vaccine: none Infectious Disease History: No Infectious Disease History: Denies: Hx Clostridium Difficile, Hx Hepatitis, Hx Human Immunodeficiency Virus (HIV), Hx of Known/Suspected MRSA, Hx Shingles, Hx Tuberculosis, Hx Known/ Suspected VRE, Hx Known/Suspected VRSA, History Other Infectious Disease, Traveled Outside the [place] in Last 30 Days - Family History Known Family History: Positive: Cardiac Disease - UNCLE-STENTS, AUNT/UNCLE- MITRAL VALVE PROLAPSE, BROTHER-PORPHYRIA, Hypertension, Diabetes - Social History Alcohol Use: None Hx Substance Use: No Substance Use Type: Reports: None Hx Tobacco Use: Yes Smoking Status (MU): Heavy Every Day Tobacco Smoker Type: Cigarettes Amount Used/How Often: 1 PPD Length of Time of Smoking/Using Tobacco: since age 17 Have You Smoked in the Last Year: Yes Review of Systems Negative: Fever Positive: Nausea Musculoskeletal: Other - Body aches Positive: Rash - Rash on L flank with itching and pain Positive: Headache All Other Systems Reviewed And Are Negative: Yes Physical Exam - Summary Physical Exam Summary: Constitutional: Well-developed, Well-nourished, Alert. (-) Distressed Skin: [id number] erythematous lesion to the L flank with central clearing HENT: Normocephalic; Atraumatic Eyes: Conjunctiva normal Neck: Musculoskeletal ROM normal neck. (-) nuchal rigidity, (-) JVD, (-) Stridor Cardio: RRR Pulmonary/Chest wall: Effort normal Abd: Soft, (-) tenderness, (-) Distension Musculoskeletal: (-) Edema Neuro: Alert, Oriented x3 Psych: Mood and affect Normal Triage Information Reviewed: Yes Vital Signs On Initial Exam: Initial Vitals Temp Pulse Resp BP Pulse Ox 99.3 F 101 18 151/83 96 05/30/19 13:25 05/30/19 13:25 05/30/19 13:25 05/30/19 13:25 05/30/19 13:25 Vital Signs Reviewed: Yes Diagnostics - Vital Signs Vital Signs Temp Pulse Resp BP Pulse Ox 05/30/19 13:25 99.3 F 101 18 151/83 96 - Laboratory Lab Statement: Any lab studies that have been ordered have been reviewed, and results considered in the medical decision making process. Course/Dx - Course Assessment/Plan: 39-year-old male with recent diagnosis of Lyme disease presents with pain at rash site. Physical exam notable for erythema migrans rash on the left flank with central clearing. Patient is well-appearing and history is consistent with Lyme disease. Patient instructed to continue taking doxycycline and follow-up with his PCP on Saturday if he has worsening symptoms. - Diagnoses Provider Diagnoses: Lyme disease, Erythema migrans (Lyme disease) Discharge - Sign-Out/Discharge Documenting (check all that apply): Patient Departure - Discharge Patient Received Moderate/Deep Sedation with Procedure: No - Discharge Plan Condition: Stable Disposition: HOME Patient Education Materials: Lyme Disease (ED) Referrals: Sophie Calix MD [Primary Care Provider] - 3 Days Additional Instructions: You were seen in the emergency department for a rash likely from Lyme disease Please continue antibiotics and return for worsening pain, fevers, headaches, neck pain, confusion or if you're concerned. If any studies were not completed at the time of discharge you will be called with the relevant results. Please follow up with your primary care doctor in next 2-3 days and return to emergency department for worsening or concerning symptoms. - Billing Disposition and Condition Condition: STABLE Disposition: Home - Attestation Statements Document Initiated by Mildred: Yes Documenting Scribe: Simone Castillo Provider For Whom Mildred is Documenting (Include Credential): Walt Keane MD Scribe Attestation: I, Simone Castillo, scribed for Walt Keane MD on 05/30/19 at 1423. Scribe Documentation Reviewed: Yes Provider Attestation: The documentation as recorded by the Simone sandoval accurately reflects the service I personally performed and the decisions made by me, Walt Keane MD Status of Scribe Document: Viewed
== END | disposition home or self-care (01) ==
LOC: ED 13:22
DX: A69.20 Lyme disease, unspecified (principal); A26.0 Cutaneous erysipeloid; F17.210 Nicotine dependence, cigarettes, uncomplicated; I20.9 Angina pectoris, unspecified
CPT/HCPCS: 99282

== ENCOUNTER 2019-10-07 14:40 | Emergency (ER) | payer BC ==
--- OUTSIDE RECORDS SUMMARY | 2019-10-07 14:45 | XMS REPORT | Summary of Care ---
:1980 Author Organization [facility] Address [address] [place] [address] Care Team Providers Name Role Phone Sophie Calix MD Primary Care Provider Reason for Visit Reason Comments URI productive cough, chest congestion, nasal drainage, chest culver with cough , no fevers Encounter Details Date Type Department Care Team Description 09/30/2019 Office Visit [facility] Heriberto Novak, Acute sinusitis, recurrence not specified, unspecified location (Primary Dx); Practice [address] [place] [address] [place] [address] [place] [address] [phone] Allergies Active Allergy Reactions Severity Noted Date Comments Environmental Respiratory Reaction 11/30/2014 documented as of this encounter (statuses as of 09/30/2019) Medications Medication Sig Dispensed Refills Start Date End Date Status ibuprofen discharge Take 400 mg 0 Active (MOTRIN) 400 MG Oral by mouth Tab EVERY SIX HOURS NEEDED for Pain. cyclobenzaprine Take 1 Tab 42 Tab 5 06/08/2019 Active (FLEXERIL) 10 MG Oral by mouth TabIndications: Acute THREE TIMES bilateral low back DAILY pain with left-sided NEEDED (back sciatica, Bulging of spasm). lumbar intervertebral Sedating, disc causes dry mouth amoxicillin-clavulani Take 1 Tab 20 Tab 0 09/30/2019 Active c acid (AUGMENTIN) by mouth 875-125 MG Oral TWICE DAILY. TabIndications: Acute sinusitis, recurrence not specified, unspecified location benzonatate (TESSALON Take 1 Cap 42 Cap 0 09/30/2019 Active PERLES) 100 MG Oral by mouth CapIndications: Cough THREE TIMES DAILY NEEDED for cough. doxycycline Take 100 mg 0 09/30/2019 Discontinued (VIBRAMYCIN) 100 MG by mouth Oral Cap TWICE DAILY. documented as of this encounter (statuses as of 09/30/2019) Active Problems Problem Noted Date Contusion of fifth toe of right foot 02/24/2019 Impingement syndrome of left shoulder 05/21/2017 Pericarditis 03/14/2017 Tendinitis of left rotator cuff 11/11/2016 Left elbow pain 10/19/2016 Rotator cuff syndrome of left shoulder 10/19/2016 RCT (rotator cuff tear) 11/19/2014 Disorders of bursae and tendons in shoulder region, unspecified 09/07/2014 Shoulder pain, right 08/31/2014 Bilateral carpal tunnel syndrome 02/19/2011 Tobacco Use 06/28/2008 Overview: 1 pack per day started age 18 Mild intermittent asthma without complication 06/28/2008 ALLERGIES 06/28/2008 Irritable bowel syndrome 06/28/2008 GERD 06/28/2008 documented as of this encounter (statuses as of 09/30/2019) Immunizations Name Administration Dates Next Due DTAP Vaccine 05/02/1990, 04/20/1985, 04/26/1982, 1980, 1980, 1980 Depo Medrol (80mg) 12/07/2016 Hepatitis B Vaccine 06/19/1996, 05/29/1995, 04/29/1995 MMR VACCINE 05/05/1991, 04/27/1981 Polio - Inactivated Vaccine 04/20/1985, 04/26/1982, 1980, 1980, 1980 TETANUS & DIPHTHERIA TOXOID (OVER 7 05/30/2009 YRS) documented as of this encounter Social History Tobacco Use Types Packs/Day Years Used Date Light Tobacco Smoker Cigarettes 1 8 Quit: 07/15/2017 Smokeless Tobacco: Never Used Alcohol Use Drinks/Week oz/Week Comments No Sex Assigned at Date Recorded Not on file Job Start Date Occupation Industry Not on file Not on file Not on file Travel History Travel Start Travel End No recent travel history available. documented as of this encounter Last Filed Vital Signs Vital Sign Reading Time Taken Comments Blood Pressure 142/78 09/30/2019 11:36 AM EST Pulse 80 09/30/2019 11:36 AM EST Temperature 37.7 09/30/2019 11:36 AM EST C (99.8 F) Respiratory Rate 20 09/30/2019 11:36 AM EST Oxygen Saturation 98% 09/30/2019 11:36 AM EST Inhaled Oxygen Concentration - - Weight 80.8 kg (178 lb 3.2 oz) 09/30/2019 11:36 AM EST Height 166.4 cm (5' 5.5") 09/30/2019 11:36 AM EST Body Mass Index 29.2 09/30/2019 11:36 AM EST documented in this encounter Progress Notes Heriberto Novak, DO - 09/30/2019 11:40 AM EST PATIENT: Andrey Rai : 1980 DATE OF SERVICE: 09/30/2019 CHIEF COMPLAINT: Chief Complaint Patient presents with URI productive cough, chest congestion, nasal drainage, chest culver with cough, no fevers Subjective HISTORY OF PRESENT ILLNESS: Andrey Rai is a 39-y.o. male. HPI 2 weeks of nasal congestion, runny nose, sinus pain. Now chest congestion Some cough - dry No fever No body aches No diarrhea Past Medical History: Diagnosis Date Asthma 06/28/2008 as a child ALLERGIES 06/28/2008 spring, fall Bilateral carpal tunnel syndrome 02/19/2011 s/p surgery GERD 06/28/2008 History of viral pericarditis 01/23/2017 Hx of cardiovascular stress test 05/2016 Dr. Liz, for chest pain last year. Irritable bowel syndrome 06/28/2008 Pericarditis 01/23/2017 viral illness caused. Family History Problem Relation Age of Onset Hypertension Mother Cancer Father 40 mouth cancer/throat GI Brother IBS Heart Maternal Grandmother Tachy-paul syndrome and Afib s/p ppm Diabetes Maternal Grandmother No Known Problems Daughter No Known Problems Daughter Heart Paternal Grandmother [place] Diabetes Paternal Grandmother Alcohol/Drug Paternal Grandmother Heart Maternal Uncle Current Outpatient Medications Medication Sig amoxicillin-clavulanic acid (AUGMENTIN) 875-125 MG Oral Tab Take 1 Tab by mouth TWICE DAILY. benzonatate (TESSALON PERLES) 100 MG Oral Cap Take 1 Cap by mouth THREE TIMES DAILY NEEDEDfor cough. cyclobenzaprine (FLEXERIL) 10 MG Oral Tab Take 1 Tab by mouth THREE TIMES DAILY NEEDED (back spasm). Sedating, causes dry mouth ibuprofen discharge (MOTRIN) 400 MG Oral Tab Take 400 mg by mouth EVERY SIX HOURS NEEDED for Pain. No current facility-administered medications for this visit. Allergies Allergen Reactions Environmental Respiratory Reaction Social History Socioeconomic History Marital status: Spouse name: Not on file Number of children: Not on file Years of education: Not on file Highest education level: Not on file Occupational History Not on file Social Needs Financial resource strain: Not on file Food insecurity: Worry: Not on file Inability: Not on file Transportation needs: Medical: Not on file Non-medical: Not on file Tobacco Use Smoking status: Light Tobacco Smoker Packs/day: 1.00 Years: 8.00 Pack years: 8.00 Types: Cigarettes Last attempt to quit: 07/15/2017 Years since quittin.2 Smokeless tobacco: Never Used Substance and Sexual Activity Alcohol use: No Drug use: No Sexual activity: Yes Partners: Female Comment: Lifestyle Physical activity: Days per week: Not on file Minutes per session: Not on file Stress: Not on file Relationships Social connections: Talks on phone: Not on file Gets together: Not on file Attends adventist service: Not on file Active member of club or organization: Not on file Attends meetings of clubs or organizations: Not on file Relationship status: Not on file Intimate partner violence: Fear of current or ex partner: Not on file Emotionally abused: Not on file Physically abused: Not on file Forced sexual activity: Not on file Other Topics Concern Back Care Not Asked Bike Helmet Not Asked Blood Transfusions Not Asked Caffeine Concern Not Asked Exercise Not Asked Hobby Hazards Not Asked International Travel Not Asked Service Not Asked Occupational Exposure Not Asked Seat Belt Not Asked Self-Exams Not Asked Sleep Concern Not Asked Special Diet Not Asked Stress Concern Not Asked Weight Concern Not Asked Social History Narrative 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 Cardiovascular: Negative for chest pain. Gastrointestinal: Negative for abdominal pain. Objective PHYSICAL EXAM: VITALS: BP 142/78 (BP Location: Left arm, Patient Position: Sitting) | Pulse 80 | Temp 99.8 F(37.7 C) (Tympanic) | Resp 20 | Ht 5' 5.5" (1.664 m) | Wt 178 lb 3.2 oz (80.8 kg) | SpO2 98% | BMI 29.20 kg/m Body mass index is 29.2 kg/m. Physical Exam Constitutional: Appearance: Normal appearance. HENT: Head: Normocephalic and atraumatic. Right Ear: Tympanic membrane normal. Left Ear: Tympanic membrane normal. Nose: Congestion present. Mouth/Throat: Mouth: Mucous membranes are moist. Pharynx: Posterior oropharyngeal erythema present. Cardiovascular: Rate and Rhythm: Normal rate and regular rhythm. Pulmonary: Effort: Pulmonary effort is normal. Breath sounds: Normal breath sounds. Neurological: Mental Status: He is alert. ASSESSMENT / IMPRESSION: ICD-9-CM ICD-10-CM 1. Acute sinusitis, recurrence not specified, unspecified location 461.9 J01.90 amoxicillin-clavulanic acid (AUGMENTIN) 875-125 MG Oral Tab 2. Cough 786.2 R05 benzonatate (TESSALON PERLES) 100 MG Oral Cap Plan Try augemntin for sinus infection Tessalon prn for cough Call if not better Author: Heriberto Novak DO 09/30/2019 12:23 documented in this encounter Plan of Treatment Health Maintenance Due Date Last Done Comments PNEUMOCOCCAL 0-64 YRS (1 of - 01/28/1986 PPSV23) INFLUENZA VACCINE (#1) 2019 DEPRESSION SCREENING 06/08/2020 06/08/2019 HPV IMMUNIZATION SERIES Aged Out No longer eligible based on patient's age to complete this topic MENINGOCOCCAL VACCINE IMM Aged Out No longer eligible based on patient's age to complete this topic documented as of this encounter Implants Implanted Type Area Associate Dean Of Students Device Identifier Shelf Expiration Model / Date Serial / Lot Fiberwire #2 - [id number] 08/03/2018 [id number] / Implanted: Qty: 1 on 09/29/2014 at [facility] [id number] / [id number] documented as of this encounter Results Not on filedocumented in this encounter Visit Diagnoses Diagnosis Acute sinusitis, recurrence not specified, unspecified location - Primary Cough documented in this encounter Insurance Payer Benefit Plan / Subscriber ID Effective Dates Phone Address Type Group [employer] xxxxxxxxxxxx 2019-Present [employer] Guarantor Name Account Type Relation to Date of Phone Billing Patient Address Andrey Rai Personal/Family 1980 [address] (Home) [place] [id number] documented as of this encounter
[2019-10-07 15:11] VITALS: BP 139/82
--- NOTE | 2019-10-07 15:28 | UC ---
Headache HPI - HPI Summary HPI Summary: 39 yo man without significant past medical history, presents for evaluation of headache with onset yesterday morning on awakening. Pain travels from his neck and occipital area to the frontal area, without changes in vision, associated nausea, vomiting, scotoma, paresthesias, weakness or dizziness. Wiht discussion, he drove to and from [facility] this weekend, and walked around the city for hours with his 5 yo daughter on his shoulders. Gets partial relief with use of ibuprofen and acetaminophen. Last dose of ibu was 4 am 600mg. - History Of Current Complaint Chief Complaint: UCHeadache Stated Complaint: HEADACHE Time Seen by Provider: 10/07/19 15:25 Hx Obtained From: Patient Onset/Duration: Sudden Onset, Lasting Days Onset Of Symptoms: Sudden Pain Intensity: 7 Timing: Constant Character: Throbbing Location of Headache: Frontal, Occipital Aggravating Factor(s): Exertion Allevating Factor(s): Rest Associated Signs And Symptoms: Positive: Neck Pain, Neck Stiffness. Negative: Dizziness, Seizure, Nausea, Vomiting, Sinus Pressure, Fever, Decreased LOC - Risk Factors SAH Risk Factors: Negative Meningitis Risk Factors: Negative SDH Risk Factors: Negative Temporal Arteritis Risk Factors: Negative - Allergies/Home Medications Allergies/Adverse Reactions: Allergies Allergy/AdvReac Type Severity Reaction Status Date / Time No Known Allergies Allergy Verified 10/07/19 15:12 Home Medications: Home Medications Acetaminophen [Tylenol Extra Strength] 1,000 mg PO Q6HR 10/07/19 [History Confirmed 10/07/19] PMH/Surg Hx/FS Hx/Imm Hx Previously Healthy: Yes Other History Of: Negative For: HIV, Hepatitis B, Hepatitis C, Anticoagulant Therapy - Surgical History Surgical History: Yes Surgery Procedure, Year, and Place: appendectomy , carpel tunnel. 1997 LEFT shoulder surgery - [facility]. Sep 17 RIGHT shoulder surgery - [facility]. CARPAL TUNNEL RELEASE, double. ORAL SURGERY 03/08/2016 with ANESTHESIA - Family History Known Family History: Positive: Cardiac Disease - UNCLE-STENTS, AUNT/UNCLE- MITRAL VALVE PROLAPSE, BROTHER-PORPHYRIA, Hypertension, Diabetes, Other - father of oral cancer - Social History Occupation: Employed Full-time Lives: With Family Alcohol Use: None Substance Use Type: None Smoking Status (MU): Heavy Every Day Tobacco Smoker Type: Cigarettes Amount Used/How Often: 1 PPD Length of Time of Smoking/Using Tobacco: since age 17 Have You Smoked in the Last Year: Yes Household Exposure Type: Cigarettes - Immunization History Most Recent Influenza Vaccination: NEVER Most Recent Tetanus Shot: within 5 years Review of Systems All Other Systems Reviewed And Are Negative: Yes Constitutional: Positive: Negative Skin: Positive: Negative Eyes: Negative: Blurred Vision, Diplopia, Photophobia ENT: Negative: Sore Throat, Ear Ache, Sinus Congestion Respiratory: Positive: Negative Cardiovascular: Positive: Negative Gastrointestinal: Positive: Negative Genitourinary: Positive: Negative Motor: Positive: Negative Neurovascular: Positive: Negative Musculoskeletal: Positive: Negative Neurological: Positive: Headache. Negative: Weakness, Paresthesia, Numbness Psychological: Positive: Negative Is Patient Immunocompromised?: No Physical Exam Triage Information Reviewed: Yes Appearance: Well-Appearing, Pain Distress - mild to moderate Vital Signs: Initial Vital Signs Temp 98.6 F 10/07/19 15:07 Pulse 91 10/07/19 15:07 Resp 16 10/07/19 15:07 BP 139/82 10/07/19 15:07 Pulse Ox 7 10/07/19 15:07 Eye Exam: Other - MANAN, normal EOM, no photophobia Eyes: Positive: Conjunctiva Clear ENT: Positive: Pharynx normal Neck: Positive: No Lymphadenopathy, Tenderness @ - insertion of paraspinals at base of occiput, pain with flexion and extension. Cervical extension restricted.. Negative: Nuchal Rigidity Respiratory: Positive: Lungs clear, Normal breath sounds Cardiovascular: Positive: RRR, No Murmur Musculoskeletal: Positive: ROM Limited @ - cervical spine. Neurological Exam: Other - CNII-XII normal, normal gait, normal finger to nose tracking, negative Romberg, normal heel to toe walking. No pronator drift or evidence of sided weakness. Neurological: Positive: Alert, Muscle Tone Normal Psychological Exam: Normal Skin Exam: Normal Headache Course/Dx - Course Course Of Treatment: Discussed muscle contraction headache, use of nsaid and muscle relaxant. - Differential Dx/Diagnosis Differential Diagnosis/HQI/PQRI: Migraine, Sinus Headache, Tension Headache Provider Diagnosis: Cervicogenic headache Discharge ED - Sign-Out/Discharge Documenting (check all that apply): Patient Departure All imaging exams completed and their final reports reviewed: No Studies - Discharge Plan Condition: Stable Disposition: HOME Prescriptions: Cyclobenzaprine TAB* [Flexeril 10 MG TAB*] 10 mg PO BID PRN #20 tab PRN Reason: Spasms - Neck Naproxen [Naproxen 500 mg tab] 500 mg PO BID PRN #30 tablet PRN Reason: Headache Patient Education Materials: Acute Headache (ED) Referrals: Sophie Calix MD [Primary Care Provider] - Additional Instructions: As discussed, the trigger for your headache is likely related to muscle spasm in the neck related to the long drive and carrying your daughter on your shoulders. To break the headache cycle, take a dose of naproxen with some food, along with a dose of muscle relaxant. This WILL cause sedation and will relax all of your muscles. Sleeping for several hours is often helpful to break the cycle. I suggest repeating a dose of muscle relaxant before bed tonight, and you can use if night for several days if the neck muscle spasm persists. - Billing Disposition and Condition Condition: STABLE Disposition: Home
== END 2019-10-07 16:08 | disposition home or self-care (01) ==
LOC: UCEAST 14:40
DX: R51 Headache (principal); F17.210 Nicotine dependence, cigarettes, uncomplicated
CPT/HCPCS: 99212; G0463

== ENCOUNTER 2019-12-20 16:22 | Emergency (ER) | payer BC ==
--- OUTSIDE RECORDS SUMMARY | 2019-12-20 16:31 | XMS REPORT | Summary of Care ---
:1980 Author Organization [facility] Address [address] [place] [address] Care Team Providers Name Role Phone Sophie Calix MD Primary Care Provider Reason for Visit Reason Comments Check Up L side lung pain x2mons when laying down or leaning on the left side , has to take deep breaths in order for pain to go away Sick mucus in throat x2mons Encounter Details Date Type Department Care Team Description 11/03/2019 Office Visit [facility] KirillalkMichelle, Pleuritic chest pain (Primary Dx); Practice [employer] Allergic rhinitis, unspecified seasonality, unspecified trigger [address] [place] [address] [place] [address] [phone] Allergies Active Allergy Reactions Severity Noted Date Comments Environmental Respiratory Reaction 11/30/2014 documented as of this encounter (statuses as of 11/03/2019) Medications Medication Sig Dispensed Refills Start Date End Date Status ibuprofen discharge Take 400 mg 0 Active (MOTRIN) 400 MG Oral by mouth Tab EVERY SIX HOURS NEEDED for Pain. cyclobenzaprine Take 1 Tab 42 Tab 5 06/08/2019 11/03/2019 Discontinued (FLEXERIL) 10 MG Oral by mouth TabIndications: Acute THREE TIMES bilateral low back DAILY pain with left-sided NEEDED (back sciatica, Bulging of spasm). lumbar intervertebral Sedating, disc causes dry mouth amoxicillin-clavulani Take 1 Tab 20 Tab 0 09/30/2019 11/03/2019 Discontinued c acid (AUGMENTIN) by mouth 875-125 MG Oral TWICE DAILY. TabIndications: Acute sinusitis, recurrence not specified, unspecified location benzonatate (TESSALON Take 1 Cap 42 Cap 0 09/30/2019 11/03/2019 Discontinued PERLES) 100 MG Oral by mouth CapIndications: Cough THREE TIMES DAILY NEEDED for cough. Guaifenesin 100 Take 10 mL 150 mL 0 09/30/2019 11/03/2019 Discontinued MG/5ML Oral Liquid by mouth EVERY EIGHT HOURS NEEDED (cough). documented as of this encounter (statuses as of 11/03/2019) Active Problems Problem Noted Date Contusion of [...] as of this encounter (statuses as of 11/03/2019) Immunizations Name Administration Dates Next Due DTAP Vaccine 05/02/1990, 04/20/1985, 04/26/1982, 1980, 1980, 1980 Hepatitis B Vaccine 06/19/1996, 05/29/1995, 04/29/1995 MMR [...] Sign Reading Time Taken Comments Blood Pressure 128/70 11/03/2019 9:49 AM EST Pulse 96 11/03/2019 9:49 AM EST Temperature - - Respiratory Rate - - Oxygen Saturation 96% 11/03/2019 9:49 AM EST Inhaled Oxygen Concentration - - Weight 81.6 kg (180 lb) 11/03/2019 9:49 AM EST Height 166.4 cm (5' 5.5") 11/03/2019 9:49 AM EST Body Mass Index 29.5 11/03/2019 9:49 AM EST documented in this encounter Patient Instructions Patient InstructionsMichelle Mioxn NP - 11/03/2019 9:40 AM ESTChest xray today. Ibuprofran 600 mg three times daily (every 8 hours) for the next 5 days - take with food. After 5 days you can take as needed. Use hot packs on your left side. Flonase 2 sprays each nostril once daily - try for 3-4 weeks, if no improvement let me know, and I will refer you to ENT to get a better look at your throat. If you have any concerning symptoms such as squeezing, pressure or pain in your chest; discomfort orpain in your back, neck, jaw, stomach, or arm; shortness of breath; nausea or vomiting; lightheadedness or a sudden cold sweat - please go immediately to the emergency room. Patient Education Pleuritic Chest Pain The Basics Written by the doctors and editors at [facility] What is pleuritic chest pain?Pleuritic chest pain is a type of sharp, stabbing pain that gets worse when you breathe in and even worse when you take a deep breath. It is often caused by problems with the thin layers of tissue that surround the lungs (called the "pleura"). Pain from the ribs or muscles lying over the ribs can cause a similar chest pain. What causes pleuritic chest pain?Pleuritic chest pain can be caused by the following lung problems: Pneumothorax A pneumothorax is when air gets trapped between the lung and the rib cage (figure 1). This air presses on the lung and causes it to deflate or collapse. Causes of pneumothorax include injuries to the chest, cigarette smoking, and certain lung infections. Pleural effusion Pleural effusion is when fluid builds up in the space between the lung and the rib cage. Causes of pleural effusion include tumors, pneumonia (an infection in the lungs), and blood clots in the lungs. Pleuritis Pleuritis is the medical term for inflammation of the pleura. This can also becalled "pleurisy." The most common cause of pleuritis is infection, but it can also be caused by lupus, rheumatoid arthritis, and certain medicines. Empyema Empyema is the medical term for an infection in the fluid between the lung and the rib cage. Pericarditis Pericarditis is a term for inflammation of the tissues around the heart. Sometimes the pain from pericarditis is similar to pleuritic chest pain. Should I see a doctor or nurse?Yes, if you have stabbing chest pain that gets worse when you breathe in and lasts more than a few minutes, see a doctor or nurse right away. Are there tests I should have?Your doctor or nurse will decide which tests you should have based on your age, other symptoms, and individual situation. Here are the most common tests doctors use to find the cause of pleuritic chest pain: Blood tests Blood tests can show whether you are fighting an infection, whether there isan infection in your blood, and whether your blood has certain proteins that get released into the blood during a heart attack. Pulse oximetry This test uses a small device that goes on your finger. It checks the amount of oxygen in your blood. Chest X-ray A chest X-ray can show if the lungs are inflating all the way. It can also show if there is air or fluid between the lungs and the ribcage. CT scan A chest CT scan can show if there is a blood clot in the lung, and find other causes of pleuritic pain. Thoracentesis During this procedure, doctors use a needle to take some fluid from aroundthe lungs. Then they can test the fluid for infection and find out what kind of cells it has in it. (This test is only for people who have fluid around the lungs.) Heart tests Because heart problems can cause chest pain, some people with pleuritic chest pain have heart tests. These tests could include an electrocardiogram (ECG), which measures the electrical activity of the heart, or an echocardiogram, which uses sound waves to create pictures of theheart as it beats. How is pleuritic chest pain treated?That depends on what kind of problem is causing the pain. Pneumothorax Sometimes a pneumothorax will heal on its own. If a pneumothorax is too bigto heal on its own, doctors can drain the air in the pneumothorax using a tube (called a chest tube). Pneumonia with empyema caused by bacteria If the pain is caused by a bacterial infectionin the fluid around the lung, doctors can treat the infection with antibiotics. Often they also use a chest tube to help drain the infection. Blood clot If the pain is caused by a blood clot, doctors give medicine that dissolves clots or keeps them from getting bigger. Medicines If a medicine is causing pleuritis, doctors might stop or switch the medicine. Viral infection If the pain is not caused by any of the problems listed above, it is probably caused by a viral infection. Viral infections usually go away on their own after a few days or a couple of weeks. To help with pain in the meantime, doctors often suggest pain-relieving medicines,such as ibuprofen (sample brand names: Advil, Motrin) or naproxen (sample brand name : Aleve). All topics are updated as new evidence becomes available and our peer review process is complete. This topic retrieved from [employer] on: Sep 08, 2019. Topic 80318 Version 5.0 Release: 27.4.5 - C27.318 [facility]. and/or its affiliates.All rights reserved. figure 1: Pneumothorax (collapsed lung) The lungs sit in the chest, inside the ribcage. They are covered with a thin membrane called the "pleura." The windpipe (or trachea) branches into smaller airways. In this drawing, 1 lung is normal, and 1 has collapsed because air has leaked out of it. The air that has leaked out of the lung (shown inblue) has filled the space outside of the lung. Graphic 75119 Version 2.0 Consumer Information Use and Disclaimer This information is not specific medical advice and does not replace information you receive from your health care provider. This is only a brief summary of general information. It does NOT include allinformation about conditions, illnesses, injuries, tests, procedures, treatments, therapies, discharge instructions or life-style choices that may apply to you. You must talk with your health care provider for complete information about your health and treatment options. This information should not beused to decide whether or not to accept your health care provider's advice, instructions or recommendations. Only your health care provider has the knowledge and training to provide advice that is right for you.The use of [employer] content is governed by the [employer] Terms of Use. 2019 [employer]. All rights reserved. Copyright 2019[employer]. and/or its affiliates.All rights reserved. documented in this encounter Progress Notes Michelle Mixon NP - 11/03/2019 9:40 AM EST PATIENT: Andrey Rai : 1980 DATE OF SERVICE: 11/03/2019 CHIEF COMPLAINT: Chief Complaint Patient presents with Check Up L side lung pain x2mons when laying down or leaning on the left side, has to take deep breaths in order for pain to go away Sick mucus in throat x2mons Subjective HISTORY OF PRESENT ILLNESS: Andrey Rai is a 39-y.o. male. HPI Past few months. Pain in left side when laying on left side or leaning to the left side. No pain when sitting up. Some days no pain even when on left side. Happens more days than not. Always in same area on left side. Pain when laying on left side is only when taking a breath (shallow breaths not hurting, normal breathing does hurt on inhalataion). Feels like fluid shifting to the left and making it painful to breath. Laying on right side. No shortness of breath. Sometimes shortness of breath with exertion, mild. No cough. Feels like there is increased sputum in his throat - clear. Sometimes feeling like something is stuck in his throat, but able to breath and swallow without difficulty. No chest pain. No palpitations. Palpitations in the past but not currently - has had full work up in the past for this. Was sick on 09/30 with URI - but this ongoing since before that. Pain alleviated by sitting up, and taking careful breathing. Aggravated by laying down. He takes motrin once in awhile for regular body aches, not specifically for the left side pain - hasnot noticed if it's any better with the ibuprofen (he takes during the day and not laying down aftertaking so unsure). Has not tried any other treatments. He thinks lung. He is a smoker - smoking 1 ppd x20 years - give or take some throughout. No unintentional weight loss. No chills malaise fever or fatigue - does endorse he gets tired earlier in the day then he used to (use to go to bed at 11 pm, now 8 pm. Past Medical History: Diagnosis Date Asthma 06/28/2008 as a child ALLERGIES 06/28/2008spring, fall Bilateral carpal tunnel syndrome 02/19/2011 s/p [...] No Known Problems Daughter Heart Paternal Grandmother [place] Diabetes Paternal Grandmother Alcohol/Drug Paternal Grandmother Heart Maternal Uncle Current Outpatient Medications Medication Sig ibuprofen discharge (MOTRIN) 400 MG Oral Tab [...] Financial resource strain: Not on file Food insecurity Worry: Not on file Inability: Not on file Transportation needs Medical: Not on file Non-medical: Not on file Tobacco Use Smoking status: Light Tobacco Smoker Packs/day: 1.00 Years: 8.00 Pack years: 8.00 Types: Cigarettes Last attempt to quit: 07/15/2017 Years since quittin.3 Smokeless tobacco: Never Used Substance and Sexual Activity Alcohol use: No Drug use: No Sexual activity: Yes Partners: Female Comment: Lifestyle Physical activity Days per week: Not on file Minutes per session: Not on file Stress: Not on file Relationships Social connections Talks on phone: Not on file Gets together: Not on file Attends church service: Not on file Active member of club or organization: Not on file Attends meetings of clubs or organizations: Not on file Relationship status: Not on file Intimate partner violence Fear of current or ex partner: Not [...] Not Asked Social History Narrative 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 Negative for chills, diaphoresis, fever and weight loss. HENT: Negative for congestion, ear discharge, ear pain, sinus pain and sore throat. Respiratory: Positive for sputum production (clear) and shortness of breath ( with exertion). Negative for cough. Cardiovascular: Positive for chest pain (left side axillary). Negative for palpitations and leg swelling. Gastrointestinal: Negative for abdominal pain, nausea and vomiting. Musculoskeletal: Positive for back pain (chronic). Neurological: Negative for dizziness and headaches. Objective PHYSICAL EXAM: VITALS: BP 128/70 (BP Location: Right arm, Patient Position: Sitting) | Pulse 96 | Ht 5' 5.5" (1.664 m) | Wt 180 lb (81.6 kg) | SpO2 96% | BMI 29.50 kg/m Body mass index is 29.5 kg/m. Physical Exam Vitals signs and nursing note reviewed. Constitutional: General: He is not in acute distress. Appearance: Normal appearance. He is well-developed. HENT: Nose: Mucosal edema (erythema) and rhinorrhea present. Rhinorrhea is purulent. Right Turbinates: Swollen. Left Turbinates: Swollen. Mouth/Throat: Pharynx: Posterior oropharyngeal erythema (PND) present. Cardiovascular: Rate and Rhythm: Normal rate and regular rhythm. Heart sounds: Normal heart sounds. No murmur. No friction rub. No gallop. Pulmonary: Effort: Pulmonary effort is normal. No respiratory distress. Breath sounds: Normal breath sounds and air entry. Comments: No pleural friction rub Chest: Chest wall: No swelling, tenderness, crepitus or edema. Lymphadenopathy: Upper Body: Right upper body: No supraclavicular adenopathy. Left upper body: No supraclavicular adenopathy. Neurological: Mental Status: He is alert. Psychiatric: Mood and Affect: Mood and affect normal. Speech: Speech normal. Behavior: Behavior normal. Behavior is cooperative. ASSESSMENT / IMPRESSION: ICD-9-CM ICD-10-CM 1. Pleuritic chest pain 786.52 R07.81 XR CHEST 2 VIEW PA AND LATERAL (STANDARD) 2. Allergic rhinitis, unspecified seasonality, unspecified trigger 477.9 J30.9 Plan 1. Pleuritic chest pain Will do chest xray today estela given history of smoking. Ibuprofran 600 mg three times daily (every 8 hours) for the next 5 days - take with food. After 5 days you can take as needed. Use hot packs on your left side. Warning signs to go to er. - XR CHEST 2 VIEW PA AND LATERAL (STANDARD); Future 2. Allergic rhinitis, unspecified seasonality, unspecified trigger Exam suggestive of post nasal drip causing the sensation of mucus in throat - will try 3-4 weeks of flonase daily, return if no improvement - consider ent referral for scope. Author: Michelle Mixon NP 11/03/2019 12:16 documented in this encounter Plan of Treatment Health Maintenance Due Date Last Done Comments PNEUMOCOCCAL 0-64 YRS (1 of 01/28/1986 1 - PPSV23) DTaP/Tdap/Td Vaccines (8 - 05/30/2019 05/30/2009, 05/02/1990, Tdap) 04/20/1985, Additional history exists INFLUENZA VACCINE (#1) 2019 DEPRESSION SCREENING 06/08/2020 06/08/2019 HEPATITIS A IMMUNIZATION Aged Out No longer eligible SERIES based on patient's age to complete this topic HPV IMMUNIZATION SERIES Aged Out No longer eligible based on patient's age to complete this topic MENINGOCOCCAL VACCINE IMM Aged Out No longer eligible based on patient's age to complete this topic documented as of this encounter Implants Implanted Type Area Administrative Services Director Device Identifier Shelf Expiration Model / Date Serial / Lot Chioma #2 - [id number] 08/03/2018 [id number] / Implanted: Qty: 1 on 09/29/2014 at [facility] [id number] / [id number] documented as of this encounter Results XR CHEST 2 VIEW PA AND LATERAL (STANDARD) (11/03/2019 11:10 AM EST) Specimen Impressions Performed At 1. No acute cardiopulmonary disease is seen. Urgency: Routine. This is a routine medical imaging report. Recommendation: No specific imaging recommendation. Signed by Mendy Hughes MD, MHA, FCPS on 11/03/2019 11:20 AM Narrative Performed At Procedure(s): XR CHEST 2 VIEW PA AND LATERAL (STANDARD) Date of service: 11/03/2019 11:09 AM Provided clinical information: 39 years, Male, "chest pain left side under axilla" Procedure and materials: Standard protocol. Procedure: CHEST 2 VIEWS Technique: PA and lateral views of the chest were acquired. Comparison: Chest x-ray 11/13/2012 Findings: There is no confluent pulmonary parenchymal opacity seen. Cardioaortic silhouette appears unremarkable. There is normal pulmonary vascularity. The araceli are normal. No pleural effusion is seen. No pneumothorax is seen. Trachea midline. Mild endplate remodeling is seen of thoracic spine. No acute bony abnormality is seen. Procedure Note Interface, Rad Results - 11/03/2019 11:22 AM EST Procedure(s): XR CHEST 2 VIEW PA AND LATERAL (STANDARD) Date of service: 11/03/2019 11:09 AM Provided clinical information: 39 years, Male, "chest pain left side under axilla" Procedure and materials: Standard protocol. Procedure: CHEST 2 VIEWS Technique: PA and lateral views of the chest were acquired. Comparison: Chest x-ray 11/13/2012 Findings: There is no confluent pulmonary parenchymal opacity seen. Cardioaortic silhouette appears unremarkable. There is normal pulmonary vascularity. The araceli are normal. No pleural effusion is seen. No pneumothorax is seen. Trachea midline. Mild endplate remodeling is seen of thoracic spine. No acute bony abnormality is seen. IMPRESSION 1. No acute cardiopulmonary disease is seen. Urgency: Routine. This is a routine medical imaging report. Recommendation: No specific imaging recommendation. Signed by Mendy Hughes MD, MHA, FCPS on 11/03/2019 11:20 AM documented in this encounter Visit Diagnoses Diagnosis Pleuritic chest pain Painful respiration Allergic rhinitis, unspecified seasonality, unspecified trigger documented in this encounter Insurance Payer Benefit Plan / Subscriber ID Effective Dates Phone Address Type [facility] xxxxxxxxxxxx 2019-Present [employer] documented as of this encounter
--- NOTE | 2019-12-20 16:53 | UC ---
Abdominal Pain Male HPI - HPI Summary HPI Summary: ONSET OF PERIUMBILICAL ABDOMINAL PAIN AROUND 2 AM THIS MORNING. WOKE HIM FROM SLEEP. HAS BEEN CONSTANT ALL DAY SOMETIMES WORSENING AND THEN SLOWLY IMPROVING. DENIES NAUSEA. NO FEVER AT HOME BUT FOUND TO HAVE TEMPERATURE 100.8 HERE IN THE URGENT CARE. APPENDIX ALREADY OUT. - History of Current Complaint Chief Complaint: UCGI Stated Complaint: ABD, BACK PAIN Time Seen by Provider: 12/20/19 16:28 Hx Obtained From: Patient Onset/Duration: Sudden Onset, Lasting Hours, Still Present Timing: Constant Severity Initially: Moderate Severity Currently: Moderate Pain Intensity: 8 Pain Scale Used: 0-10 Numeric Location: Diffuse Radiates: Yes Radiates to: Back Character: Sharp Aggravating Factor(s): Nothing Alleviating Factor(s): Nothing Associated Signs And Symptoms: Positive: Back Pain. Negative: Diaphoresis, Fever, Chest Pain, Constipation, Urinary Symptoms, Decreased Appetite, Nausea, Vomiting, Diarrhea - Allergies/Home Medications Allergies/Adverse Reactions: Allergies Allergy/AdvReac Type Severity Reaction Status Date / Time No Known Allergies Allergy Verified 12/20/19 16:39 Home Medications: Home Medications NK [No Home Medications Reported] 12/20/19 [History Confirmed 12/20/19] PMH/Surg Hx/FS Hx/Imm Hx Respiratory History: Asthma Other History Of: Negative For: HIV, Hepatitis B, Hepatitis C, Anticoagulant Therapy - Surgical History Surgical History: Yes Surgery Procedure, Year, and Place: appendectomy , carpel tunnel. 1997 LEFT shoulder surgery - [facility]. Sep 17 RIGHT shoulder surgery - [facility]. CARPAL TUNNEL RELEASE, double. ORAL SURGERY 03/08/2016 with ANESTHESIA - Family History Known Family History: Positive: Cardiac Disease - UNCLE-STENTS, AUNT/UNCLE- MITRAL VALVE PROLAPSE, BROTHER-PORPHYRIA, Hypertension, Diabetes, Other - father of oral cancer - Social History Alcohol Use: None Substance Use Type: None Smoking Status (MU): Heavy Every Day Tobacco Smoker Type: Cigarettes Amount Used/How Often: 1 PPD Length of Time of Smoking/Using Tobacco: since age 17 Have You Smoked in the Last Year: Yes Household Exposure Type: Cigarettes - Immunization History Most Recent Influenza Vaccination: NEVER Most Recent Tetanus Shot: within 5 years Review of Systems All Other Systems Reviewed And Are Negative: Yes Constitutional: Positive: Negative Respiratory: Positive: Negative Cardiovascular: Positive: Negative Gastrointestinal: Positive: Abdominal Pain. Negative: Vomiting, Diarrhea, Nausea Genitourinary: Positive: Negative Physical Exam Triage Information Reviewed: Yes Appearance: Well-Nourished, Pain Distress - MODERATE Vital Signs: Initial Vital Signs Temp 100.8 F 12/20/19 16:35 Pulse 110 12/20/19 16:35 Resp 16 12/20/19 16:35 BP 138/84 12/20/19 16:35 Pulse Ox 96 12/20/19 16:35 Laboratory Tests 12/20/19 16:56 POC Urine Color Dark yellow POC Urine Clarity Clear POC Urine pH 6.0 POC Ur Specif Alpine >= 1.030 POC Urine Protein Negative POC Ur Glucose (UA) Negative POC Urine Ketones Negative POC Urine Blood Trace-intact POC Urine Nitrite Negative POC Urine Bilirubin 1+ A POC Urine Urobilinogen 0.2 POC U Leukocyte Esteras Negative Vital Signs Reviewed: Yes Eyes: Positive: Conjunctiva Clear ENT: Positive: Hearing grossly normal Neck: Positive: Supple Respiratory Exam: Normal Cardiovascular: Positive: Tachycardia Abdomen Description: Positive: Soft, Other: - DIFFUSELY TENDER BUT WORSE PERIUMBILICAL AREA. NO RIGIDITY OR REBOUND. Negative: CVA Tenderness (R), CVA Tenderness (L), Distended, Guarding Bowel Sounds: Positive: Present Musculoskeletal: Positive: No Edema Neurological: Positive: Alert Psychological: Positive: Age Appropriate Behavior Skin: Negative: Rashes Abd Pain Male Course/Dx - Course Course Of Treatment: PATIENT WITH SUDDEN ONSET OF ABDOMINAL PAIN AND LOW-GRADE FEVER TODAY. PATIENT IS IN MODERATE DISTRESS HERE IN THE URGENT CARE. IS ALREADY STATUS POST APPENDECTOMY. PATIENT REQUIRES FURTHER EVALUATION AND A HIGHER LEVEL OF SERVICE THAN WHAT IS AVAILABLE THE URGENT CARE. TO [facility] BY AMBULANCE. - Differential Dx/Clinical Impression Provider Diagnosis: Periumbilical abdominal pain - Physician Notification/Consults Discussed Patient Care With: Walt Keane - TO [facility] BY AMBULANCE Time Discussed With Above Provider: 17:05 Instructed by Provider To: Will See In ED Discharge ED - Sign-Out/Discharge Documenting (check all that apply): Patient Departure All imaging exams completed and their final reports reviewed: No Studies - Discharge Plan Condition: Stable Disposition: TRANS HIGHER LVL OF CARE FAC Patient Education Materials: Abdominal Pain (ED) Referrals: Sophie Calix MD [Primary Care Provider] - If Needed - Billing Disposition and Condition Condition: STABLE Disposition: Trans Higher Lvl of Care Fac
[2019-12-20] MEDS ORDERED: Ibuprofen TAB* 600 MG PO ONE (16:58)
[2019-12-20] MEDS ORDERED: NS 0.9% 1000 ML** 1,000 ML IV ONE (17:04)
[2019-12-20 17:23] VITALS: BP 140/74
== END 2019-12-20 17:20 | disposition short-term general hospital (02) ==
LOC: UCEAST 16:22
DX: R10.33 Periumbilical pain (principal); J45.909 Unspecified asthma, uncomplicated; F17.210 Nicotine dependence, cigarettes, uncomplicated
CPT/HCPCS: 81003; 99213; A9270-GY; G0463

== ENCOUNTER 2019-12-20 17:40 | Emergency (ER) | payer BC ==
[2019-12-20] MEDS ORDERED: Morphine 4 MG/ML VIAL (1 ml) 4 MG/ML VIAL IV ONE ×2 (18:08→19:07)
--- NOTE | 2019-12-20 18:10 | ED ---
GI/ HPI - HPI Summary HPI Summary: 39-year-old male presents with abdominal pain since this morning. He states that it hurts all over. He states he keeps getting intense waves of pain. He has history of the appendectomy. Denies any history of pancreatitis or has colitis. no urinary symptoms. No chest pain or shortness of breath. No cough. No diarrhea. Has had 4 hard stools today. never had this before. Given ibuprofen at urgent care. - History of Current Complaint Chief Complaint: EDAbdPain Time Seen by Provider: 12/20/19 17:54 Stated Complaint: ABD PAIN PER EMS Pain Intensity: 8 - Additional Pertinent History Primary Care Physician: [id number] - Allergy/Home Medications Allergies/Adverse Reactions: Allergies Allergy/AdvReac Type Severity Reaction Status Date / Time No Known Allergies Allergy Verified 12/20/19 16:39 PMH/Surg Hx/FS Hx/Imm Hx Endocrine/Hematology History: Denies: Hx Anticoagulant Therapy, Hx Diabetes, Hx Thyroid Disease Cardiovascular History: Reports: Hx Angina, Other Cardiovascular Problems/ Disorders - Hx Pericarditis Denies: Hx Congestive Heart Failure, Hx Coronary Artery Disease, Hx Deep Vein Thrombosis, Hx Hypercholesterolemia - patient says he does not know, Hx Hypertension, Hx Myocardial Infarction, Hx Pacemaker/ICD, Hx Peripheral Vascular Disease, Hx Valvular Heart Disease Respiratory History: Reports: Hx Asthma - as a child, rarely as an adult, Other Respiratory Problems/Disorders - PNA Denies: Hx Chronic Obstructive Pulmonary Disease (COPD), Hx Lung Cancer GI History: Denies: Hx Gall Bladder Disease, Hx Gastrointestinal Bleed, Hx Ulcer, Hx Urosepsis History: Denies: Hx Kidney Stones, Hx Renal Disease Sensory History: Denies: Hx Contacts or Glasses, Hx Hearing Aid Opthamlomology History: Denies: Hx Contacts or Glasses Neurological History: Denies: Hx Dementia, Hx Headaches, Hx Migraine, Hx Seizures, Hx Transient Ischemic Attacks (TIA) Psychiatric History: Denies: Hx Anxiety, Hx Depression, Hx Schizophrenia, Hx Bipolar Disorder - Surgical History Surgery Procedure, Year, and Place: appendectomy , carpel tunnel. 1997 LEFT shoulder surgery - [facility]. Sep 17 RIGHT shoulder surgery - [facility]. CARPAL TUNNEL RELEASE, double. ORAL SURGERY 03/08/2016 with ANESTHESIA - Immunization History Date of Tetanus Vaccine: utd Date of Influenza Vaccine: none Infectious Disease History: No Infectious Disease History: Denies: Hx Clostridium Difficile, Hx Hepatitis, Hx Human Immunodeficiency Virus (HIV), Hx of Known/Suspected MRSA, Hx Shingles, Hx Tuberculosis, Hx Known/ Suspected VRE, Hx Known/Suspected VRSA, History Other Infectious Disease, Traveled Outside the [place] in Last 30 Days - Family History Known Family History: Positive: Cardiac Disease - UNCLE-STENTS, AUNT/UNCLE- MITRAL VALVE PROLAPSE, BROTHER-PORPHYRIA, Hypertension, Diabetes, Other - father of oral cancer - Social History Alcohol Use: None Hx Substance Use: No Substance Use Type: Reports: None Hx Tobacco Use: Yes Smoking Status (MU): Heavy Every Day Tobacco Smoker Type: Cigarettes Amount Used/How Often: 1 PPD Length of Time of Smoking/Using Tobacco: since age 17 Have You Smoked in the Last Year: Yes Review of Systems Negative: Fever Negative: Chest Pain Negative: Shortness Of Breath Positive: Abdominal Pain. Negative: Vomiting, Diarrhea, Nausea All Other Systems Reviewed And Are Negative: Yes Physical Exam Triage Information Reviewed: Yes Vital Signs On Initial Exam: Initial Vitals Temp Pulse Resp BP Pulse Ox 99 F 96 18 127/86 96 12/20/19 17:47 12/20/19 17:47 12/20/19 17:47 12/20/19 17:47 12/20/19 17:47 Vital Signs Reviewed: Yes Appearance: Positive: Well-Appearing Skin: Positive: Warm, Dry Head/Face: Positive: Normal Head/Face Inspection Eyes: Positive: Normal, Conjunctiva Clear ENT: Positive: Pharynx normal Respiratory/Lung Sounds: Positive: Clear to Auscultation, Breath Sounds Present Cardiovascular: Positive: Normal, RRR Abdomen Description: Positive: Soft, Other: - diffuse abd tenderness greatest in RUQ Bowel Sounds: Positive: Present Musculoskeletal: Positive: Normal Neurological: Positive: Normal Psychiatric: Positive: Normal Procedures - Sedation Patient Received Moderate/Deep Sedation with Procedure: No Diagnostics - Vital Signs Vital Signs Temp Pulse Resp BP Pulse Ox 12/20/19 17:47 99 F 96 18 127/86 96 - Laboratory Result Diagrams: 12/20/19 18:37 12/20/19 18:37 Lab Statement: Any lab studies that have been ordered have been reviewed, and results considered in the medical decision making process. - CT abd CT Interpretation Completed By: Radiologist Summary of CT Findings: IMPRESSION: 1. There is mild colonic diverticulosis without evidence for acute diverticulitis. 2. There is trace free fluid or ascites in the lower abdomen and pelvis. - Ultrasound No standard instances Ultrasound Interpretation Completed By: Radiologist Summary of Ultrasound Findings: IMPRESSION: No acute sonographic pathology. Re-Evaluation - Re-Evaluation First Eval Re-Evaluation Time: 20:06 Change: Unchanged Comment: still in severe pain Second Eval Re-Evaluation Time: 21:42 Change: Improved Comment: still some pain GIGU Course/Dx - Course Course Of Treatment: 39-year-old male presents with abdominal pain since this morning. He states that it hurts all over. He states he keeps getting intense waves of pain. He has history of the appendectomy. Denies any history of pancreatitis or has colitis. no urinary symptoms. No chest pain or shortness of breath. No cough. No diarrhea. Has had 4 hard stools today. never had this before. Given ibuprofen at urgent care. On exam has diffuse abdomen pain greatest in right upper quadrant. appears uncomfortable. wbc normal. crp elevated. lfts normal. gallbladder u/s normal. got CT due to extreme pain. CT no acute findings. gave short course of pain medication. will have follow up with primary. patient understand and agrees with plan. - Diagnoses Differential Diagnoses - Male: Gall Bladder Disease, Gastroenteritis (Bacterial) , Gastroenteritis (Viral) Provider Diagnoses: Abdominal pain Discharge ED - Sign-Out/Discharge Documenting (check all that apply): Patient Departure - Discharge Plan Condition: Good Disposition: HOME Patient Education Materials: Acute Abdominal Pain (ED) Referrals: Sophie Calix MD [Primary Care Provider] - Additional Instructions: take tyenlol or ibuprofen every 6 hours, use norco for break through pain every 6 hours drink plenty of fluids follow bland diet follow up with primary within 5 days Return to ED if develop any new or worsening symptoms - Billing Disposition and Condition Condition: GOOD Disposition: Home - Attestation Statements Provider Attestation: I was available for consultation for this patient. I did not evaluate the patient, or participate in any medical decision making or disposition decisions unless I am specifically named in the chart as having consulted on the patient. If I have consulted on the patient, please see my own ED note on the patient encounter. Walt Keane MD
[2019-12-20 18:48] LABS: ABS Eosinophils 0.1 10^3/ul (0-0.6); ABS Lymphocytes 1.8 10^3/ul (1.0-4.8); ABS Monocytes 0.8 10^3/ul (0-0.8); Eosinophil % 0.6 %; Hematocrit 45 % (42-52); Hemoglobin 15.3 g/dL (14.0-18.0); Lymphocyte % 18.7 %; Mean Corpuscular HGB Conc 34 g/dL (31-36); Mean Corpuscular Hemoglobin 31 pg (27-31); Mean Corpuscular Volume 91 fL (80-94); Nucleated Red Blood Cells % 0.1; Platelet Count 274 10^3/uL (150-450); Red Blood Count 4.89 10^6 /uL (4.18-5.48); Red Cell Distribution Width 13 % (10-15); White Blood Count 9.7 10^3/uL (3.5-10.8)
[2019-12-20 19:02] LABS: Albumin 4.2 g/dL (3.2-5.2); Calcium 8.7 mg/dL (8.6-10.3); Potassium 3.7 mmol/L (3.5-5.0); Total Bilirubin 0.8 mg/dL (0.2-1.0)
[2019-12-20 19:08] LABS: Albumin/Globulin Ratio 1.6 (1-3); BUN/Creatinine Ratio 21.5 (8-20); C Reactive Protein 12.36 mg/L (<8.01); EGFR African American 132.1 (>60); EGFR Non-African American 109.2 (>60); Globulin 2.7 g/dL (2-4); Total Protein 6.9 g/dL (6.4-8.9)
[2019-12-20 19:17] LABS: Urine Appearance Cloudy; Urine Bilirubin Negative (Negative); Urine Blood Negative (Negative); Urine Color Amber; Urine Glucose 1+(50 mg/dL) (Negative); Urine Ketones Trace (Negative); Urine Nitrite Negative (Negative); Urine Protein 1+(30 mg/dL) (Negative); Urine Specific Gravity 1.032 (1.010-1.030); Urine Urobilinogen Negative (Negative)
[2019-12-20 19:18] LABS: Urine Bacteria Absent (Absent); Urine Red Blood Cell Trace(0-2/hpf) (Absent); Urine Squamous Epithelial Cell Present (Absent); Urine White Blood Cell Absent (Absent)
[2019-12-20] MEDS ORDERED: Iohexol 300* (CONTRAST) 10 ML SDV IV ONE (20:23)
[2019-12-21 02:42] VITALS: BP 134/101
== END 2019-12-21 02:41 | disposition home or self-care (01) ==
LOC: ED 17:40
DX: R10.11 Right upper quadrant pain (principal); K57.30 Diverticulosis of large intestine without perforation or abscess without bleeding; F17.210 Nicotine dependence, cigarettes, uncomplicated; Z90.89 Acquired absence of other organs
CPT/HCPCS: 36415; 74177; 76705; 80053; 81003; 81015; 82150; 83690; 85025; 86140; 96374; 96376; 99283; J2270; Q9967

== ENCOUNTER 2024-02-19 19:21 | Observation (INO) ==
[2024-02-19 20:24] LABS: ABS Basophils 0.1 10^3/uL (0.0-0.1); ABS Eosinophils 0.1 10^3/uL (0.0-0.5); ABS Lymphocytes 2.5 10^3/uL (1.0-4.8); ABS Monocytes 1.3 10^3/uL (0.0-1.1); ABS Neutrophils 8.2 10^3/uL (1.5-7.6); Eosinophil % 0.6 %; Hematocrit 44.4 % (38-53); Lymphocyte % 20.9 %; Mean Corpuscular Hemoglobin 30.5 pg (27-33); Mean Corpuscular Hgb Conc 33.7 g/dL (31-36); Mean Corpuscular Volume 90.4 fL (80-97); Mean Platelet Volume 6.7 fL (7.5-11.2); Platelet Count 375 10^3/uL (150-450); Red Blood Count 4.91 10^6/uL (4.06-5.63); Red Cell Distribution Width 13.9 % (12-17); White Blood Count 12.2 10^3/uL (3.6-10.2)
[2024-02-19] MEDS: Iodixanol (CONTRAST) 320 MG/ML 100 ML SDV IV ONE (20:37)
[2024-02-19 20:48] LABS: High Sens Troponin Baseline < 3 pg/mL (<20)
[2024-02-19 21:00] LABS: ALT 19 U/L (7-52); AST 15 U/L (13-39); Albumin 4.4 g/dL (3.2-5.2); Albumin/Globulin Ratio 1.6 (1-3); Alkaline Phosphatase 114 U/L (35-149); Anion Gap 8 mmol/L (2-16); Blood Urea Nitrogen 15 mg/dL (6-24); CO2 Carbon Dioxide 30 mmol/L (22-32); Calcium 9.4 mg/dL (8.6-10.3); Chloride 101 mmol/L (101-111); Cholesterol 305 mg/dL; Creatinine, Serum 0.92 mg/dL (0.67-1.17); Globulin 2.8 g/dL (2-4); Glucose 83 mg/dL (70-100); HDL Cholesterol 39.8 mg/dL; LDL Cholesterol 206 mg/dL; Magnesium 2.1 mg/dL (1.9-2.7); Potassium 4.3 mmol/L (3.5-5.0); Sodium 139 mmol/L (135-145); Total Bilirubin 0.7 mg/dL (0.2-1.0); Total Protein 7.2 g/dL (6.4-8.9); Triglycerides 294 mg/dL; eGFR CKD-EPI 105.2 (>60)
[2024-02-19 21:14] LABS: TSH Ultra Thyroid Stim Horm 1.45 mcIU/mL (0.34-5.60)
[2024-02-19 21:40] LABS: Urine Appearance Clear; Urine Bilirubin Negative (Negative); Urine Blood Negative (Negative); Urine Color Light-Yellow; Urine Glucose Negative (Negative); Urine Ketones Negative (Negative); Urine Nitrite Negative (Negative); Urine Protein Trace (Negative); Urine Specific Gravity 1.048 (1.002-1.030); Urine Urobilinogen Negative (Negative); Urine pH 6.5 (5.0-8.0)
[2024-02-19 21:57] LABS: High Sensitivity Troponin 1 Hr 3 pg/mL (<20)
[2024-02-20 00:31] LABS: Vitamin B12 230 pg/mL (180-914)
[2024-02-21 12:05] VITALS: BP 124/82
== END 2024-02-21 13:27 | disposition home or self-care (01) ==
LOC: EDHOLD 19:21 → ED 19:21 → SUATTDRO 23:39 → MEDTELE 02-20 10:39
PROVIDERS: ADMIT Hospitalist; ATTEND Hospitalist

== ENCOUNTER 2024-03-21 14:53 | Observation (INO) ==
[2024-03-21] MEDS: Iodixanol (CONTRAST) 320 MG/ML 100 ML SDV IV ONE (15:18)
[2024-03-21 15:24] LABS: ABS Basophils 0.1 10^3/uL (0.0-0.1); ABS Eosinophils 0.1 10^3/uL (0.0-0.5); ABS Lymphocytes 2.8 10^3/uL (1.0-4.8); ABS Monocytes 0.8 10^3/uL (0.0-1.1); ABS Neutrophils 7.1 10^3/uL (1.5-7.6); ABS Nucleated RBC 0.01 10^3/ul; Hematocrit 44.2 % (38-53); Hemoglobin 15.2 g/dL (13.2-16.3); Lymphocyte % 25.4 %; Mean Corpuscular Hemoglobin 31.1 pg (27-33); Mean Corpuscular Hgb Conc 34.5 g/dL (31-36); Mean Corpuscular Volume 90.1 fL (80-97); Mean Platelet Volume 6.8 fL (7.5-11.2); Nucleated Red Blood Cells % 0.1 %/100WBC (0.0-0.8); Platelet Count 347 10^3/uL (150-450); Red Cell Distribution Width 13.9 % (12-17); White Blood Count 10.9 10^3/uL (3.6-10.2)
[2024-03-21 15:40] LABS: Activated Partial Thrombo Time 30.6 seconds (26.0-38.0); INR 0.97 (0.83-1.13)
[2024-03-21 16:02] LABS: Urine Appearance Clear; Urine Bilirubin Negative (Negative); Urine Blood Negative (Negative); Urine Color Light-Yellow; Urine Glucose Negative (Negative); Urine Ketones Negative (Negative); Urine Nitrite Negative (Negative); Urine Protein Negative (Negative); Urine Specific Gravity 1.023 (1.002-1.030); Urine Urobilinogen Negative (Negative); Urine pH 6.5 (5.0-8.0)
[2024-03-21 16:05] LABS: Albumin 4.6 g/dL (3.2-5.2); Albumin/Globulin Ratio 1.7 (1-3); Calcium 9.5 mg/dL (8.6-10.3); Creatinine, Serum 0.86 mg/dL (0.67-1.17); Direct Bilirubin 0.1 mg/dL (0.03-0.18); Globulin 2.7 g/dL (2-4); HDL Cholesterol 38.3 mg/dL; Indirect Bilirubin 0.6 mg/dL (0.3-1.0); Potassium 3.9 mmol/L (3.5-5.0); Total Bilirubin 0.7 mg/dL (0.2-1.0); Total Protein 7.3 g/dL (6.4-8.9); eGFR CKD-EPI 109.5 (>60)
[2024-03-21] MEDS ORDERED: EPINEPHrine Anaphylaxis SYR CERTADOSE SYR KIT ONE (22:04)
[2024-03-21] MEDS ORDERED: Famotidine IV 10 MG/ML 2 ml VIAL (20 mg) ONE (22:04)
[2024-03-22] MEDS: Aspirin EC 81 mg TAB.EC (enteric coated) PO SCH (08:33)
[2024-03-22 12:18] LABS: ABS Basophils 0.1 10^3/uL (0.0-0.1); ABS Eosinophils 0.1 10^3/uL (0.0-0.5); ABS Lymphocytes 2.7 10^3/uL (1.0-4.8); ABS Monocytes 0.9 10^3/uL (0.0-1.1); ABS Nucleated RBC 0.01 10^3/ul; Eosinophil % 0.7 %; Hematocrit 44.7 % (38-53); Hemoglobin 15.3 g/dL (13.2-16.3); Lymphocyte % 23.1 %; Mean Corpuscular Hemoglobin 31.1 pg (27-33); Mean Corpuscular Hgb Conc 34.3 g/dL (31-36); Mean Corpuscular Volume 90.5 fL (80-97); Mean Platelet Volume 6.7 fL (7.5-11.2); Nucleated Red Blood Cells % 0.1 %/100WBC (0.0-0.8); Platelet Count 307 10^3/uL (150-450); Red Blood Count 4.93 10^6/uL (4.06-5.63); Red Cell Distribution Width 13.8 % (12-17); White Blood Count 11.9 10^3/uL (3.6-10.2)
[2024-03-22 12:34] LABS: Calcium 9.3 mg/dL (8.6-10.3); Creatinine, Serum 0.89 mg/dL (0.67-1.17); eGFR CKD-EPI 108.4 (>60)
[2024-03-22] MEDS ORDERED: Nicotine Lozenge mini 2 MG LOZNG.MINI MT PRN (15:08)
[2024-03-22] MEDS: Nicotine PATCH 7 MG/24 HR PATCH TRANSDERM SCH (15:25)
[2024-03-23 06:29] LABS: Hemoglobin 14.6 g/dL (13.2-16.3); Mean Corpuscular Hemoglobin 30.7 pg (27-33); Mean Corpuscular Hgb Conc 33.9 g/dL (31-36); Mean Corpuscular Volume 90.6 fL (80-97); Mean Platelet Volume 6.7 fL (7.5-11.2); Platelet Count 291 10^3/uL (150-450); Red Blood Count 4.75 10^6/uL (4.06-5.63); Red Cell Distribution Width 13.6 % (12-17); White Blood Count 8.8 10^3/uL (3.6-10.2)
[2024-03-23 06:54] LABS: Creatinine, Serum 0.9 mg/dL (0.67-1.17); Potassium 4.7 mmol/L (3.5-5.0)
[2024-03-23 10:23] VITALS: BP 125/78
[2024-03-23] MEDS: Gadoteridol (CONTRAST) 279.3 MG/ML 10 ML IV ONE (11:22)
[2024-03-25 13:51] LABS: Anaplasma phagocytophilum Negative (Negative); B. miyamotoi PCR, B Negative (Negative); Babesia divergens/MO-1 Negative (Negative); Babesia ducani Negative (Negative); Ehrlichia chaffeensis Negative (Negative); Ehrlichia ewingii/canis Negative (Negative); Ehrlichia muris eauclairensis Negative (Negative)
== END 2024-03-23 14:40 | disposition home or self-care (01) ==
LOC: EDHOLD 14:53 → ED 14:53 → SUATTDRO 18:30 → MED 03-22 11:11
PROVIDERS: ADMIT Hospitalist; ATTEND Internal Medicine